=== PATIENT | female | born 1945 | race Caucasian/White ===

== ENCOUNTER → 2020-08-30 15:00 | Outpatient (BNVA) | payer MEDICARE, OTHER, SELFPAY | PROVIDERS: PCP Internal Medicine; Visit Provider Internal Medicine Cardiovascular Disease | DX: I10 Essential (primary) hypertension (principal); Z82.49 Family history of ischemic heart disease and other diseases of the circulatory system | CPT/HCPCS: 93005; 99212 ==

== ENCOUNTER → 2020-10-09 10:04 | Outpatient (REF) | payer MEDICARE, OTHER, SELFPAY ==
--- NOTE | 2020-10-09 10:07 | CA_ITS ---
Transthoracic Echocardiogram Patient (Last, First, Middle): Yovana Mayfield A Gender: Female Date of : 1945 Age: 75 Procedure Date: 10/09/2020 Procedure Type: Transthoracic Echocardiogram Location: OP Height: 162.56 cm Weight: 111.13 kg BSA: 2.13 m2 Heart Rate: bpm BP: 137 / 70 mmHg Coal Sampler: LUCAS Referring MD: Vasyl Sung MD Symptoms: R01.1 - Cardiac murmur, unspecified Study Quality: Technically Difficult ECG Rhythm: Sinus Conclusions: - The left ventricular systolic function is normal. The visually estimated ejection fraction is between 65-70%. - There is mild calcification of the aortic valve. - There is mild aortic valve stenosis. - There is mild dilatation of the aortic arch measuring 3.90 cm. Findings Left Ventricle Normal left ventricular cavity size. There is mildly increased left ventricular wall thickness. The left ventricular systolic function is normal. The visually estimated ejection fraction is between 65-70%. There is no evidence of regional wall motion abnormalities. Diastolic function is normal for age. Right Ventricle Normal right ventricular cavity size and systolic function. Atria Both atria are normal in size. Aortic Valve The aortic valve was not well visualized. There is a normal trileaflet aortic valve. There is mild calcification of the aortic valve. There is mild aortic valve stenosis. The peak aortic gradient is 20 mmHg.The mean gradient is 9 mmHg. The aortic valve area is 1.43 cm2. There is no aortic valve regurgitation. Mitral Valve The mitral valve appears normal. There is trace mitral valve regurgitation. There is no mitral valve stenosis. Pulmonic Valve The pulmonic valve was not well visualized. Tricuspid Valve Normal tricuspid valve structure. There is trace tricuspid valve regurgitation. The pulmonary artery systolic pressure is normal. Great Vessels The asc aorta is normal in size. There is mild dilatation of the aortic arch measuring 3.90 cm. Venous The inferior vena cava is normal in size and collapses greater than 50% with inspiration. Pericardium/Pleural There is no evidence of pericardial effusion. Prior Study Comparison Changes noted compared to prior study dated: 08/11/2018. See comments on aortic arch. Measurements M-Mode Liner Measurements Normals - Women/Men AOV Cusps: 1.70 1.5-2.6 cm/m2 2D Linear Measurements IVSd: 1.07 0.6-0.9/0.6-1.0 cm LVIDd: 4.72 3.9-5.3/4.2-5.9 cm LVIDd Index: 2.22 2.4-3.2/2.2-3.1 cm/m2 LVIDs: 3.59 2.0-3.6 cm LVPWd: 1.12 0.7-1.1 cm Ao Root: 2.60 2.1-3.5 cm LA Diam: 3.70 2.7-3.8/3.0-4.0 cm LAIDs Index: 1.74 1.5-2.3 cm/m2 LV Mass: 233.78 67-162/88-224 g LV Mass Index: 109.75 43-95/49-115 g/m2 LVOT Diam: 2.10 3.0+(-)1.3 cm 2D Systolic Function EF 4C: 66.50 >55% EF 2C: 62.90 >55% EF BiP: 65.70 >55% Mitral Valve MV Pk E: 0.89 MV PK A: 1.21 MV Decel Time: 257.00 E/A: 0.70 E'Lateral: 11.00 E'Medial: 7.07 E/E' Med: 12.60 E/E' Lat: 8.10 PHT: 75.00 MVA PHT: 2.93 Decel [place]: 3.47 Aortic Valve AoV Pk Cooper: 2.23 AoV Pk Grad: 20.00 Aov Mn Grad: 9.00 CARA Cont.VTI: 1.43 LVOT LVOT Pk Cooper: 0.92 LVOT Mn Cooper: 0.64 LVOT VTI: 0.21 LVOT Pk Grad: 3.00 LVOT Mn Grad: 2.00 LVOT Diam: 2.10 LVOT Area: 3.46 Diastolic Function MV Pk E: 0.89 MV Pk A: 1.21 E/A: 0.70 E'Medial: 7.07 E/E' Med: 12.60 E' Laterial: 11.00 E/E' Lat: 8.10 Tricuspid Valve RA Press: 3.00 Great Vessels Aorta Ao Root-2D: 2.60 2.0-3.7 cm Ao Asc: 2.90 2.1-3.4 cm Ao Arch: 3.90 Pulmonary Valve PV Pk Cooper: 1.68 Peak PV Grad: 11.00 Updated in Other Vendor System with Status of Final Perry Fisher MD electronically signed on 10/09/2020 11:39:41 AM with status of Final
== END ==
LOC: HO.CARD 10:04
PROVIDERS: PCP Internal Medicine; Visit Provider Internal Medicine Cardiovascular Disease
DX: R01.1 Cardiac murmur, unspecified (principal); R06.02 Shortness of breath; I10 Essential (primary) hypertension
CPT/HCPCS: 93306

== ENCOUNTER 2020-10-19 10:56 | Outpatient (REF) | payer MEDICARE, OTHER, SELFPAY ==
[2020-10-19 11:53] LABS: Cholesterol 204 mg/dL; HDL Cholesterol 63 mg/dL; LDL Cholesterol Calculated 120 mg/dl; Triglycerides 106 mg/dL
== END 2020-10-19 10:57 | disposition home or self-care (01) ==
LOC: HO.LAB 10:56
PROVIDERS: PCP Internal Medicine; Visit Provider Internal Medicine Cardiovascular Disease
DX: I25.10 Atherosclerotic heart disease of native coronary artery without angina pectoris (principal); I10 Essential (primary) hypertension
CPT/HCPCS: 36415; 80061

== ENCOUNTER → 2021-01-03 10:13 | Outpatient (REF) | payer MEDICARE, OTHER, SELFPAY ==
--- NOTE | ~2021-01-03 | NM_ITS ---
Lexiscan Myocardial perfusion study Indication: Shortness of breath, hypertension, assess for coronary disease and ischemia Technique: The patient was brought in for a Lexiscan perfusion study on 01/03/2021 and was injected 0.4 mg of Lexiscan intravenously. Within a minute of this injection 40 mCi of sestamibi was given intravenously. Images were obtained using the SPECT gamma camera interlaced with the gating device. Images were obtained in supine position. Resting perfusion study was performed on 01/04/2021. Patient was administered 40 mCi of sestamibi intravenously at rest. Images were then obtained in supine position. Total DLP 165mGy-cm. Images were processed with the software and compared side to side in short axis, horizontal long axis and vertical long axis views. Findings: Raw acquisition was reviewed. Left arm by the patient's side. The stress perfusion study showed diminished tracer uptake in the distal inferolateral wall. There is significant improvement with CT attenuation correction, suggestive of diaphragmatic attenuation artifact. The gated study shows normal LV systolic function with calculated LVEF of 57%. LV cavity is normal in size. The gated study shows normal wall thickening and contraction of segments. Resting study shows mildly diminished tracer uptake along the inferior wall but with good improvement with CT attenuation correction. Gating at rest reveals normal wall motion with ejection fraction at 58%. The findings are consistent with no definite reversible or fixed perfusion defects. NM/NM kalye perf SPECT rest & str Impression: 1. Myocardial perfusion imaging study shows likely normal myocardial perfusion. No definitive evidence of any ischemia or infarction. 2. Gated LVEF is 57% during stress and 58% during rest. 3. Transient ischemic dilatation not present. EKG component of the test reported separately.
--- NOTE | 2021-01-03 10:17 | CA_ITS ---
Acquisition Time: 2021-01-03 10:23:59 Total Exercise Time: 00:02:00 Test Indications: HTN Medications: SEE CHART Protocol: LEXISCAN Max HR: 087 BPM 59% of Pred: 147 BPM Max BP: 130/070 mmHG Max Work Load: 1.0 METS Pharmacological stress test with Lexsican injection, while sitting and kicking her legs, without anginal symptoms, without arrythmia, with normotensive response to injection, with nondiagnostic EKG for ischemia. Nuclear image pending. Test reveiwed with Dr Fisher. Referred By: Vasyl Sung Overread By: PO MONTILLA
== END ==
LOC: HO.CARD 10:13
PROVIDERS: Visit Provider Internal Medicine Cardiovascular Disease
DX: R06.02 Shortness of breath (principal); R01.1 Cardiac murmur, unspecified; I10 Essential (primary) hypertension
CPT/HCPCS: 78452; 93016; 93017; 93018; A9500; J0280; J2785

== ENCOUNTER 2021-05-06 20:22 | Emergency (ER) | payer MEDICARE, OTHER, SELFPAY ==
--- NOTE | ~2021-05-06 | XR_ITS ---
EXAMINATION: XR KNEE, RIGHT CLINICAL INFORMATION: Fall. COMPARISON: None TECHNIQUE: Four views of the right knee. FINDINGS: There is soft tissue swelling in the prepatellar soft tissues. No acute osseous abnormality. No fracture or dislocation. Status post right total knee replacement. Orthopedic components in position. No radiographic evidence of loosening. XR/XR knee RT 2V IMPRESSION: 1. Prepatellar soft tissue swelling. 2. Right total knee replacement. No acute osseous abnormality.
--- NOTE | ~2021-05-06 | XR_ITS ---
EXAMINATION: XR ELBOW, RIGHT CLINICAL INFORMATION: Fall. Pain. COMPARISON: None TECHNIQUE: Three views of the right elbow. FINDINGS: There is fluid in the elbow joint, hemarthrosis, displacing fat pads of the distal humerus. There is an impacted fracture of the radial neck. Subtle cortical step-off seen at the base of the radial neck. The distal humerus and the proximal ulna are intact. XR/XR elbow RT 2V IMPRESSION: Fracture of radial neck.
--- NOTE | ~2021-05-06 | CT_ITS ---
EXAMINATION: CT HEAD WITHOUT CONTRAST CLINICAL INFORMATION: Fall. COMPARISON: CT head July 19, 2009 TECHNIQUE: Contiguous axial imaging was performed from the skull base to vertex without intravenous administration of contrast. Coronal and sagittal reformatted images are performed at the CT scanner. [This CT examination was performed using dose optimization techniques as appropriate, variously including the following: *Automated exposure control *Adjustment of mA and/or kV according to patient size (this includes techniques or standardized protocols for targeted exams where dose is matched to indication/reason for exam; i.e. extremities or head) *Use of iterative reconstruction technique] DLP: 670 mGy-cm. FINDINGS: There is no evidence of acute intracranial hemorrhage or territorial infarction. No abnormal mass-effect or midline shift is seen. Martinez to white matter differentiation is well preserved. No extra-axial fluid collections are identified. The ventricles are normal in size. There is no abnormal attenuation within the brain parenchyma. There is no osseous abnormality. The mastoid air cells and visualized portions of the paranasal sinuses are well-aerated. CT/CT head/brain wo con IMPRESSION: No acute intracranial pathology.
[2021-05-06 20:26] VITALS: BP 155/103; PULSE 67; RESP 16; TEMP 36.8; O2SAT 98; BMI 41.1
--- NOTE | 2021-05-06 20:34 | PC.NURSE ---
pt a&o , no loss of loc, dressing to laceration right anabaptism, bleeding is control. pt able to communicate appropriately and completed full sentences.
[2021-05-06 21:08] VITALS: BP 179/96; PULSE 66; RESP 16; TEMP 36.8; O2SAT 100
--- NOTE | 2021-05-06 21:19 | PC.NURSE ---
patient arrives to ED with fall at home and hit head. Lac on right side of head. Patient states she has 3 plantar warts that are currently being treated and it is painful to walk and it caused her to become wobbly at home and fall. Patient hit head on propane tank. Fall witnessed by . Denies LOC. Denies use of blood thinners. Resting safely.
--- NOTE | 2021-05-06 21:36 | ED.FALL ---
HPI - Fall General Chief Complaint: Fall Stated Complaint: Fall/Head injury Time Seen by Provider: 05/06/21 21:36 Source: patient Mode of arrival: ambulatory Limitations: no limitations History of Present Illness HPI Narrative: Patient had a mechanical fall tripped in her backyard fell hitting her right temporal area to the propane tank came with small laceration no loss of consciousness also complaining of right knee pain and right elbow pain patient able to ambulate Related Data Home Medications Medication Instructions Recorded Confirmed Lactobacillus cap PO 08/30/20 08/30/20 acidophilus-Bifidobac.animalis 2 billion cell capsule (One-A-Day Trubiotics) allopurinol 100 mg tablet 100 mg PO DAILY 08/30/20 08/30/20 cetirizine 10 mg tablet 5 mg PO DAILY PRN 08/30/20 08/30/20 cholecalciferol (vitamin D3) 25 25 mcg PO DAILY 08/30/20 08/30/20 mcg (1,000 unit) capsule escitalopram oxalate 10 mg tablet 10 mg PO DAILY 08/30/20 08/30/20 hydrochlorothiazide 50 mg tablet 50 mg PO DAILY 08/30/20 08/30/20 levothyroxine 88 mcg tablet 88 mcg PO DAILY 08/30/20 08/30/20 omega-3 fatty acids 1,000 mg 1,000 mg PO DAILY 08/30/20 08/30/20 capsule potassium chloride 20 mEq 20 meq PO DAILY 08/30/20 08/30/20 tablet,extended release turmeric root extract 500 mg 1,000 mg PO DAILY 08/30/20 08/30/20 capsule Allergies Allergy/AdvReac Type Severity Reaction Status Date / Time No Known Allergies Allergy Unverified 04/26/20 14:34 [No Known Allergies*] Review of Systems Review of Systems: Yes all other systems are reviewed and are negative PMFSH Past Medical History Medical History HTN (hypertension) Surgical History Hx of carpal tunnel repair Family History Family History Father CVD (cardiovascular disease) Mother CVD (cardiovascular disease) Social History Social History Advance Directives: No Advance Directives Information Provided: No Physical Exam Vital Signs: Vital Signs: Last Vital Signs Temp 98.3 F 05/06/21 21:08 Pulse 66 05/06/21 21:08 Resp 16 05/06/21 21:08 BP 179/96 H 05/06/21 21:08 Pulse Ox 100 05/06/21 21:08 Body Mass Index 41.1 Appearance: Alert. Oriented X3. No acute distress. Eyes: PERRLA, HEENT: Pharynx normal. Oral Mucosa moist, superficial laceration on right temporal area Neck: Normal inspection. Neck supple. CVS: Normal heart rate and rhythm. Pulses normal. Respiratory: No respiratory distress. Equal air entry bilateral, Abdomen: Soft and nontender. Bowel sounds are present, no mass palpable, Skin: Skin warm and dry. Normal skin color. Normal skin turgor. Extremities: No lower extremity edema. No calf tenderness slight tenderness right radial head good range of movement. Right knee has slight swelling on the patellar bone good range of movement patient able to ambulate Neuro: Oriented X 3. No motor deficit. No sensory deficit.No cerebellar signs , cranial nerves II-XII intact HENMT: Head images: 1. 2 cm superficial laceration Extrem: Shoulder/upper arm images: 1. Tenderness at radial head, good range of movement, neurovascular intact Procedures Laceration Laceration 1: Site: scalp Side (If applicable): right Size (cm): 2 Description: linear Depth: simple, single layer Skin layer closed with: other (Dermabond) Orthopedic Splinting/Casting Injury #1: Side: right Upper Extremity Injury Location: elbow Upper Extremity Immobilizer: sling/shoulder immobilizer MDM - Fall MDM Narrative Medical decision making narrative: Patient right elbow-x-ray showed subtle fracture of right radial head with good range of movement. Right elbow immobilizer applied Lab Data Attestation: I reviewed the patient's lab results. Discharge Plan Discharge Clinical Impression: Fall Qualifiers: Encounter type: initial encounter Qualified Code(s): W19.XXXA - Unspecified fall, initial encounter Elbow fracture, right Qualifiers: Encounter type: initial encounter Fracture type: closed Qualified Code(s): S42.401A - Unspecified fracture of lower end of right humerus, initial encounter for closed fracture Patient Disposition: Home, Self-Care Instructions: Elbow Fracture (ED), Fall Prevention (ED) Additional Instructions: Wear elbow immobilizer for 48 hours Apply ice Do [id number] exercises as advised Tylenol for pain Follow-up with orthopedics if pain continues or unable to move your right elbow Prescriptions: No Action levothyroxine 88 mcg tablet 88 mcg PO DAILY RF: 0 hydrochlorothiazide 50 mg tablet 50 mg PO DAILY RF: 0 potassium chloride 20 mEq tablet extended release 20 meq PO DAILY RF: 0 escitalopram oxalate 10 mg tablet 10 mg PO DAILY RF: 0 allopurinol 100 mg tablet 100 mg PO DAILY RF: 0 cetirizine 10 mg tablet 5 mg PO DAILY PRNRF: 0 cholecalciferol (vitamin D3) 25 mcg (1,000 unit) capsule 25 mcg PO DAILY RF: 0 One-A-Day Trubiotics 2 billion cell capsule PO RF: 0 turmeric root extract 500 mg capsule 1,000 mg PO DAILY RF: 0 omega-3 fatty acids 1,000 mg capsule 1,000 mg PO DAILY RF: 0 Discharge Date/Time: 05/06/21 23:00
== END 2021-05-06 23:00 | disposition home or self-care (01) ==
PROVIDERS: Emergency Provider Internal Medicine; PCP Internal Medicine
DX: S01.01XA Laceration without foreign body of scalp, initial encounter (principal); S51.011A Laceration without foreign body of right elbow, initial encounter; G44.309 Post-traumatic headache, unspecified, not intractable; M79.601 Pain in right arm; W01.0XXA Fall on same level from slipping, tripping and stumbling without subsequent striking against object, initial encounter; Y93.9 Activity, unspecified; Y92.9 Unspecified place or not applicable; Y99.9 Unspecified external cause status; Z79.899 Other long term (current) drug therapy
CPT/HCPCS: 12001; 29105; 70450; 73070; 73560; 99283; 99284

== ENCOUNTER 2021-08-05 14:18 | Emergency (ER) | payer MEDICARE, OTHER, SELFPAY ==
[2021-08-05 14:26] VITALS: BP 173/90; PULSE 73; RESP 18; TEMP 36.8; BMI 42.9
[2021-08-05 17:22] LABS: MANUAL DIFF FLAG NO
[2021-08-05 17:23] LABS: Basophils Absolute Auto 0.1 X10*3/uL (0.0-0.2); Basophils Percent Auto 0.6 % (0-2); Eosinophils Absolute Auto 0.5 X10*3/uL (0.0-0.4); Eosinophils Percent Auto 5.8 % (0-4); Hemoglobin 13.2 g/dl (12.0-16.0); Imm Gran Abs Auto 0.03 X10*3/uL (0.00-0.03); Imm Gran Pct Auto 0.4 % (0.0-0.4); Lymphocytes Absolute Auto 1.9 X10*3/uL (1.2-4.9); Lymphocytes Percent Auto 23.2 % (20-40); Mean Corpuscular Volume 90.9 fL (80.0-98.0); Mean Platelet Volume 10.1 fL (9.4-12.3); Monocytes Absolute Auto 0.8 X10*3/uL (0.1-1.2); Monocytes Percent Auto 9.2 % (2-11); Neutrophils Percent Auto 60.8 % (45-73); Platelet Count 241 X10*3/uL (160-400); Red Cell Distribution Width 13.7 % (11.0-16.0); White Blood Count 8.1 X10*3/uL (4.8-10.8)
[2021-08-05 17:41] LABS: Anion Gap 13 (12-20); Blood Urea Nitrogen 17 mg/dL (9-16); Calcium 10.2 mg/dL (8.4-10.2); Carbon Dioxide 29 mmol/L (22-29); Chloride 106 mmol/L (96-108); Creatinine Clr Calc Pharmacy 61.5; Estimated Glomerular Filt Rate 55; Glucose Random 107 mg/dL (60-115); Potassium 4.5 mmol/L (3.3-5.1); Sodium 143 mmol/L (135-145)
[2021-08-05 22:54] VITALS: BP 193/91; PULSE 64; RESP 20; O2SAT 96
== END 2021-08-05 23:10 | disposition left against medical advice (07) ==
PROVIDERS: Emergency Provider Emergency Medicine; PCP Internal Medicine
DX: R51.9 Headache, unspecified (principal); M79.605 Pain in left leg; M79.604 Pain in right leg
CPT/HCPCS: 36415; 80048; 85025; 99283

== ENCOUNTER → 2022-09-01 13:13 | Outpatient (BNVA) | payer MEDICARE, OTHER, SELFPAY | PROVIDERS: PCP Internal Medicine; Referring Provider Internal Medicine; Visit Provider Internal Medicine Cardiovascular Disease | DX: I35.0 Nonrheumatic aortic (valve) stenosis (principal); I10 Essential (primary) hypertension | CPT/HCPCS: 93005; 99212 ==

== ENCOUNTER → 2022-09-08 08:37 | Outpatient (REF) | payer MEDICARE, OTHER, SELFPAY ==
--- NOTE | 2022-09-08 08:40 | CA_ITS ---
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 The calculated ejection fraction is 62% by biplane method. - There is mild aortic valve stenosis. - There is mild dilatation of the ascending aorta measuring 4.00 cm. - Small plaque is seen in the sinuses of Valsalva. Findings Left Ventricle Normal left ventricular cavity size. There is mildly increased left ventricular wall thickness. The left ventricular systolic function is normal. The calculated ejection fraction is 62% by biplane method. There is no evidence of regional wall motion abnormalities. Diastolic function is normal for age. LV peak GLS -22%. Right Ventricle Normal right ventricular cavity size and systolic function. Atria The left atrium is moderately dilated. The right atrium is normal in size. Aortic Valve There is a normal trileaflet aortic valve. There is mild calcification of the aortic valve. There is mild aortic valve stenosis. The peak aortic velocity is 2.35 m/s with a calculated peak gradient of 22 mmHg. The mean gradient is 13 mmHg. The aortic valve area is 1.40 cm2. There is no aortic valve regurgitation. Dimensionless index 0.44. Mitral Valve The mitral valve appears normal. There is trace mitral valve regurgitation. There is no mitral valve stenosis. Pulmonic Valve The pulmonic valve was not well visualized. Tricuspid Valve Normal tricuspid valve structure. There is mild tricuspid valve regurgitation. There is no evidence of pulmonary hypertension. Great Vessels There is mild dilatation of the ascending aorta measuring 4.00 cm. Small plaque is seen in the sinuses of Valsalva. Venous The inferior vena cava is normal in size and collapses greater than 50% with inspiration. Pericardium/Pleural There is no evidence of pericardial effusion. Prior Study Comparison No significant change compared to prior study dated: 10/09/2020. Measurements 2D Linear Measurements IVSd: 1.33 0.6-0.9/0.6-1.0 cm LVIDd: 4.11 3.9-5.3/4.2-5.9 cm LVIDd Index: 1.95 2.4-3.2/2.2-3.1 cm/m2 LVIDs: 2.91 2.0-3.6 cm LVPWd: 1.24 0.7-1.1 cm LA Diam: 4.30 2.7-3.8/3.0-4.0 cm LAIDs Index: 2.04 1.5-2.3 cm/m2 LV Mass: 237.80 67-162/88-224 g LV Mass Index: 112.70 43-95/49-115 g/m2 LVOT Diam: 2.10 3.0+(-)1.3 cm 2D Systolic Function EF 4C: 53.80 >55% EF 2C: 70.80 >55% EF BiP: 61.90 >55% Mitral Valve MV Pk E: 0.99 MV PK A: 1.17 MV Decel Time: 281.00 E/A: 0.80 E'Lateral: 10.30 E'Medial: 8.27 E/E' Med: 12.00 E/E' Lat: 9.60 PHT: 82.00 MVA PHT: 2.68 Decel [place]: 3.52 Aortic Valve AoV Pk Cooper: 2.35 AoV Mn Cooper: 1.73 AoV VTI: 0.64 AoV Pk Grad: 22.00 Aov Mn Grad: 13.00 CARA Cont.VTI: 1.40 LVOT LVOT Pk Cooper: 1.03 LVOT Mn Cooper: 0.67 LVOT VTI: 0.26 LVOT Pk Grad: 4.00 LVOT Mn Grad: 2.00 LVOT Diam: 2.10 LVOT Area: 3.46 Diastolic Function MV Pk E: 0.99 MV Pk A: 1.17 E/A: 0.80 E'Medial: 8.27 E/E' Med: 12.00 E' Laterial: 10.30 E/E' Lat: 9.60 Right Ventricle TAPSE (mm): 24.00 TVS' Cooper: 12.50 Tricuspid Valve TR Pk Cooper: 2.27 TR Pk Grad: 21.00 RA Press: 3.00 RVSP: 24.00 Great Vessels Aorta Sinus of Valsalva: 3.01 2.0-3.[address] [place]: 2.63 1.7-3.4 cm Ao Asc: 4.00 2.1-3.4 cm Updated in Other Vendor System with Status of Final Perry Fisher MD electronically signed on 09/08/2022 12:04:36 PM with status of Final
[2022-09-08 11:16] LABS: Cholesterol 182 mg/dL; HDL Cholesterol 57 mg/dL; LDL Cholesterol Calculated 105 mg/dl; Triglycerides 100 mg/dL
== END ==
LOC: HO.CARD 08:37
PROVIDERS: PCP Internal Medicine; Visit Provider Internal Medicine Cardiovascular Disease
DX: I35.0 Nonrheumatic aortic (valve) stenosis (principal); I25.10 Atherosclerotic heart disease of native coronary artery without angina pectoris
CPT/HCPCS: 36415; 80061; 93306; 93356

== ENCOUNTER 2023-03-30 13:13 | Outpatient (AMB) | payer MEDICARE, OTHER, SELFPAY ==
[2023-03-30 13:29] VITALS: BP 138/72; PULSE 60; O2SAT 96; BMI 42.8
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
== END 2023-03-30 13:55 | disposition home or self-care (01) ==
PROVIDERS: PCP Internal Medicine; Referring Provider Internal Medicine; Visit Provider Nurse Practitioner Family
DX: R06.02 Shortness of breath (principal); I35.0 Nonrheumatic aortic (valve) stenosis; R01.1 Cardiac murmur, unspecified; I10 Essential (primary) hypertension; I77.810 Thoracic aortic ectasia
CPT/HCPCS: 93010; 99214

== ENCOUNTER → 2023-03-30 13:13 | Outpatient (BNVA) | payer MEDICARE, OTHER, SELFPAY | PROVIDERS: PCP Internal Medicine; Referring Provider Internal Medicine; Visit Provider Nurse Practitioner Family | DX: R07.89 Other chest pain (principal); R06.02 Shortness of breath; I35.0 Nonrheumatic aortic (valve) stenosis; I10 Essential (primary) hypertension; R01.1 Cardiac murmur, unspecified; I77.810 Thoracic aortic ectasia | CPT/HCPCS: 93005; 99212 ==

== ENCOUNTER → 2023-08-18 13:47 | Outpatient (REF) | payer MEDICARE, OTHER, SELFPAY ==
--- NOTE | 2023-08-18 13:50 | CA_ITS ---
Transthoracic Echocardiogram Patient (Last, First, Middle): Yovana Mayfield A Gender: Female Date of : 1945 Age: 78 Procedure Date: 08/18/2023 Procedure Type: Transthoracic Echocardiogram Location: OP Height: 162.56 cm Weight: 113.4 kg BSA: 2.15 m2 Heart Rate: bpm BP: 146 / 80 mmHg Photonics Engineering Technician: TO Referring MD: Vasyl Sung MD Production Staff Worker: Vasyl Sung MD Symptoms: I35.0 - Nonrheumatic aortic (valve) stenosis Study Quality: Fair ECG Rhythm: Sinus Conclusions: - 1. Normal LV ejection fraction 65-70% with mild LVH with grade 1 diastolic dysfunction 2. Mild to moderate aortic stenosis 3. Normal RV systolic pressure 4. No pericardial effusion Findings Left Ventricle Normal left ventricular size and systolic function. There is mildly increased left ventricular wall thickness. The visually estimated ejection fraction is between 65-70%. Spectral Doppler is indicative of an impaired relaxation filling pattern. E/E prime ratio is <8, consistent with normal filling pressures. Evidence suggests grade I (mild) diastolic dysfunction. Right Ventricle Normal right ventricular cavity size and systolic function. Atria Mild biatrial enlargement. Interatrial shunt cannot be excluded. Aortic Valve There is mild calcification of the aortic valve. There is mild thickening of the aortic valve. There is mild to moderate aortic valve stenosis. The peak aortic gradient is 24 mmHg.The mean gradient is 13 mmHg. The aortic valve area is 1.49 cm2. There is no aortic valve regurgitation. Mitral Valve There is mild anterior mitral leaflet thickening. There is mild mitral annular calcification. There is trace mitral valve regurgitation. There is no mitral valve stenosis. Pulmonic Valve The pulmonic valve was not well visualized. Tricuspid Valve Likely normal tricuspid valve structure and function. There is mild tricuspid valve regurgitation. The right ventricular systolic pressure is normal. The right ventricular systolic pressure is 22 mmHg. Normal right atrial pressure. There is no evidence of pulmonary hypertension. Great Vessels The aorta was not well visualized. The pulmonary artery was not well visualized. There is no dilatation of the ascending aorta. Venous The inferior vena cava is normal in size and collapses greater than 50% with inspiration. Pericardium/Pleural There is no evidence of pericardial effusion. Prior Study Comparison No significant change compared to prior study dated: 09/08/2022. Measurements 2D Linear Measurements IVSd: 1.26 0.6-0.9/0.6-1.0 cm LVIDd: 4.61 3.9-5.3/4.2-5.9 cm LVIDd Index: 2.14 2.4-3.2/2.2-3.1 cm/m2 LVIDs: 3.28 2.0-3.6 cm LVPWd: 1.04 0.7-1.1 cm LA Diam: 5.00 2.7-3.8/3.0-4.0 cm LAIDs Index: 2.33 1.5-2.3 cm/m2 LV Mass: 241.25 67-162/88-224 g LV Mass Index: 112.21 43-95/49-115 g/m2 LVOT Diam: 2.10 3.0+(-)1.3 cm 2D Systolic Function EF 4C: 67.40 >55% EF 2C: 73.90 >55% EF BiP: 70.10 >55% Mitral Valve MV VTI: 0.51 MV Pk Cooper: 1.28 MV Mn Cooper: 0.70 MV Pk Grad: 7.00 MV Mn Grad: 2.00 MV Pk E: 1.05 MV PK A: 1.15 MV Decel Time: 254.00 E/A: 0.90 E'Lateral: 7.51 E'Medial: 7.07 E/E' Med: 14.90 E/E' Lat: 14.00 PHT: 74.00 MVA PHT: 2.97 MVA Continuity: 1.65 Decel Mchenry: 4.11 Aortic Valve AoV Pk Cooper: 2.45 AoV Mn Cooper: 1.70 AoV VTI: 0.56 AoV Pk Grad: 24.00 Aov Mn Grad: 13.00 CARA Cont.VTI: 1.49 LVOT LVOT Pk Cooper: 1.00 LVOT Mn Cooper: 0.65 LVOT VTI: 0.24 LVOT Pk Grad: 4.00 LVOT Mn Grad: 2.00 LVOT Diam: 2.10 LVOT Area: 3.46 Diastolic Function MV Pk E: 1.05 MV Pk A: 1.15 E/A: 0.90 E'Medial: 7.07 E/E' Med: 14.90 E' Laterial: 7.51 E/E' Lat: 14.00 Right Ventricle TAPSE (mm): 24.30 TVS' Cooper: 12.10 Tricuspid Valve TR Pk Cooper: 2.18 TR Pk Grad: 19.00 RA Press: 3.00 RVSP: 22.00 Great Vessels Aorta Sinus of Valsalva: 2.86 2.0-3.[address] [place]: 2.21 1.7-3.4 cm Ao Asc: 3.30 2.1-3.4 cm Updated in Other Vendor System with Status of Final Vasyl Sung MD electronically signed on 08/19/2023 3:18:14 PM with status of Final
== END ==
LOC: HO.CARD 13:47
PROVIDERS: PCP Family Medicine; Visit Provider Internal Medicine Cardiovascular Disease
DX: I35.0 Nonrheumatic aortic (valve) stenosis (principal)
CPT/HCPCS: 93306

== ENCOUNTER → 2023-08-18 13:50 | Outpatient (BNV) | payer MEDICARE, OTHER, SELFPAY | PROVIDERS: PCP Family Medicine; Visit Provider Internal Medicine Cardiovascular Disease | DX: I35.0 Nonrheumatic aortic (valve) stenosis (principal) | CPT/HCPCS: 93306 ==

== ENCOUNTER 2023-08-31 10:37 | Outpatient (AMB) | payer MEDICARE, OTHER, SELFPAY ==
[2023-08-31 10:51] VITALS: BP 130/60; PULSE 53; BMI 42.5
--- NOTE | 2023-08-31 10:51 | MHC.OFFVIS ---
Intake Vital Signs 08/31/23 10:51 Height 5 ft 4 in Weight 247 lb 12.793 oz BMI 42.5 BP 130/60 Blood Pressure Location Lt brachial Position Sitting Pulse 53 Intake Visit Reasons: 1 year fu Intake Note: 1 yr f/up/ pt its its feeling fine. 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 acidophilus/Bifid. animalis 2 billion cell (One-A-Day Trubiotics) caps PO levothyroxine 100 mcg PO DAILY losartan 50 mg PO BID potassium chloride ER 20 mEq PO DAILY HPI HPI Comments History of Present Illness Details Yovana comes for follow-up. She has been doing well from cardiac perspective. She denies any symptoms of palpitations says she is doing better from that perspective. Blood pressure is well controlled. Echocardiogram shows some progression aortic stenosis and currently is ruod-mo-jjlydhab aortic stenosis. She has currently not on any lipid modifying agents. Last LDL in the low 100s. She denies any exertional chest pain or shortness of breath. Denies any orthopnea, PND, leg edema, prolonged palpitations, lightheadedness, syncope. [facility] Medical History (Updated 08/31/23 @ 11:48 by Vasyl Sung MD) Anxiety Gout HTN (hypertension) Surgical History Hx of carpal tunnel repair Family History Father CVD (cardiovascular disease) Mother CVD (cardiovascular disease) Social History Alcohol intake: current Alcohol intake frequency: holidays/special occasions only Patient Tobacco Use Status: Never used Tobacco Review of Systems Const Reports chills, Reports fatigue, Reports fever(s), Reports frequent falls, Reports weakness, Reports weight gain and Reports weight loss ENT Reports dizziness Card Reports chest pain, Reports leg edema, Reports lightheadedness, Reports palpitations, Reports dyspnea and Reports dyspnea on exertion Resp Reports cough, Reports dyspnea and Reports dyspnea on exertion GI Reports hematochezia Musc Reports abnormal gait, Reports muscle weakness, Reports numbness, Reports radiating pain into limb and Reports tingling Neuro Reports abnormal gait, Reports dizziness, Reports frequent falls, Reports numbness, Reports tingling and Reports weakness Endo Reports fatigue and Reports palpitations Physical Exam Vital Signs: Last Vital Signs Pulse 53 08/31/23 10:51 BP 130/60 08/31/23 10:51 BMI result Body Mass Index 42.5 Const General: cooperative, healthy appearing, comfortable and no acute distress Orientation/consciousness: patient oriented x3 Neck Neck: Yes normal visual inspection Resp Effort & Inspection: normal respiratory effort Auscultation: clear to auscultation bilaterally, no crackles, no rales, no rhonchi and no wheezes Cardio Jugular venous distension: no JVD Rate: regular rate Rhythm: regular rhythm Heart sounds: S1 normal heart sound present, S2 normal heart sound present, Murmur heart sound present (Systolic) systolic mid, decrescendo and crescendo and no rubs Neuro General: patient oriented x3 Extrem General: Yes normal to inspection Psych Appearance: grossly normal Mental Status: mental status grossly normal Speech and movement: Normal speech and movement present Office Procedures EKG Details: EKG shows sinus bradycardia, poor R-wave progression most likely lead placement [id number], Complete Assessment & Plan Assessment & Plan (1) Aortic stenosis: Code(s): I35.0 - Nonrheumatic aortic (valve) stenosis Plan: Aortic stenosis which is dkpf-uc-huhdfkhv in severity at this point time. We discussed about natural progression of aortic stenosis. Treatment would be medical. Would prescribe low-dose aspirin therapy. Continue aggressive control blood pressure, see below. Also discussed about lipid modification which has shown to slow progression of aortic stenosis. Target goal LDL closer to 70 mg/dL. She is currently not interested in starting statin therapy but try alternatives. Follow-up lipid panel in 3 months time. Follow-up echocardiogram in 1 year's time. (2) Mild ascending aorta dilatation: Code(s): I77.810 - Thoracic aortic ectasia Plan: Mild ascending aortic aneurysm. Continue monitor by annual echocardiogram. No interventions required from surgical perspective unless the size is about 5 cm and she requires aortic valve replacement. Will discuss this as we go along. Continue aggressive control blood pressure. Advised to avoid sudden isometric exercise. (3) HTN (hypertension): Code(s): I10 - Essential (primary) hypertension Plan: Hypertension which is currently well optimized advised to monitor blood pressure at home maintain a log. Goal blood pressure less than 130/84. Low-salt diet was discussed. Continue current medical therapy. Will follow up in the clinic in 1 year's time, sooner p.r.n.. Thank you for allowing me to partake in her care Coding Level of Care Code Est Pt Level 4 (76887) Diagnoses Aortic stenosis I35.0 Mild ascending aorta dilatation I77.810 HTN (hypertension) I10 CPT Codes EKG - CPT: 48924-[id number], Complete ([id number])
== END 2023-08-31 11:22 | disposition home or self-care (01) ==
PROVIDERS: Visit Provider Internal Medicine Cardiovascular Disease
DX: I35.0 Nonrheumatic aortic (valve) stenosis (principal); I77.810 Thoracic aortic ectasia; I10 Essential (primary) hypertension
CPT/HCPCS: 93010; 99214

== ENCOUNTER → 2023-08-31 10:37 | Outpatient (BNVA) | payer MEDICARE, OTHER, SELFPAY | PROVIDERS: Visit Provider Internal Medicine Cardiovascular Disease | DX: I35.0 Nonrheumatic aortic (valve) stenosis (principal); I77.810 Thoracic aortic ectasia; I10 Essential (primary) hypertension | CPT/HCPCS: 93005; 99212 ==

== ENCOUNTER → 2024-08-12 12:47 | Outpatient (REF) | payer MEDICARE, OTHER, SELFPAY ==
--- NOTE | 2024-08-12 13:03 | CA_ITS ---
Transthoracic Echocardiogram Patient (Last, First, Middle): Yovana Mayfield A Gender: Female Date of : 1945 Age: 79 Procedure Date: 08/12/2024 Procedure Type: Transthoracic Echocardiogram Location: OP Height: 162.56 cm Weight: 113.4 kg BSA: 2.15 m2 Heart Rate: 68 bpm BP: 160 / 72 mmHg Portable Router Operator: SUSAN Referring MD: Vasyl Sung MD Radiologic Tech: Vasyl Sung MD Symptoms: I35.0 - Nonrheumatic aortic (valve) stenosis Study Quality: Adequate ECG Rhythm: Sinus Conclusions: - 1. Normal LV ejection fraction of 60 65% with impaired relaxation filling pattern 2. Mild aortic stenosis 3. Normal RV systolic pressure 4. Upper limits of normal ascending aortic size 5. No gross pericardial effusion Findings Left Ventricle Normal left ventricular size, thickness, and systolic function. The visually estimated ejection fraction is between 60-65%. Spectral Doppler is indicative of an impaired relaxation filling pattern. E/E prime ratio is between 8 and 15 consistent with indeterminate filling pressures. Right Ventricle Normal right ventricular cavity size and systolic function. Atria Both atria are normal in size. There is lipomatous hypertrophy of the interatrial septum. There is no evidence of interatrial shunt. Aortic Valve There is mild calcification of the aortic valve. There is mild thickening of the aortic valve. There is mild aortic valve stenosis. There is no aortic valve regurgitation. Mitral Valve There is mild anterior and posterior mitral leaflet thickening. There is mild mitral annular calcification. There is trace mitral valve regurgitation. There is no mitral valve stenosis. Pulmonic Valve The pulmonic valve was not well visualized. Tricuspid Valve Likely normal tricuspid valve structure and function. There is mild tricuspid valve regurgitation. The right ventricular systolic pressure is normal. The right ventricular systolic pressure is 23 mmHg. Normal right atrial pressure. There is no evidence of pulmonary hypertension. Great Vessels The aorta was not well visualized. The pulmonary artery was not well visualized. Venous The inferior vena cava is normal in size and collapses greater than 50% with inspiration. Pericardium/Pleural There is no evidence of pericardial effusion. Prior Study Comparison Changes noted compared to prior study dated: 08/18/2023. aortic stenosis appears to be mild Measurements 2D Linear Measurements IVSd: 0.74 0.6-0.9/0.6-1.0 cm LVIDd: 5.03 3.9-5.3/4.2-5.9 cm LVIDd Index: 2.34 2.4-3.2/2.2-3.1 cm/m2 LVIDs: 3.43 2.0-3.6 cm LVPWd: 0.97 0.7-1.1 cm LA Diam: 4.40 2.7-3.8/3.0-4.0 cm LAIDs Index: 2.05 1.5-2.3 cm/m2 LV Mass: 186.08 67-162/88-224 g LV Mass Index: 86.55 43-95/49-115 g/m2 LVOT Diam: 2.10 3.0+(-)1.3 cm 2D Systolic Function EF 4C: 65.90 >55% EF 2C: 61.70 >55% EF BiP: 64.20 >55% Mitral Valve MV Pk E: 1.01 MV PK A: 1.13 MV Decel Time: 236.00 E/A: 0.90 E'Lateral: 7.62 E'Medial: 9.46 E/E' Med: 10.70 E/E' Lat: 13.30 PHT: 69.00 MVA PHT: 3.19 Decel [place]: 4.29 Aortic Valve AoV Pk Cooper: 2.33 AoV Mn Cooper: 1.55 AoV VTI: 0.51 AoV Pk Grad: 22.00 Aov Mn Grad: 11.00 CARA Cont.VTI: 1.79 LVOT LVOT Pk Cooper: 1.21 LVOT Mn Cooper: 0.83 LVOT VTI: 0.26 LVOT Pk Grad: 6.00 LVOT Mn Grad: 3.00 LVOT Diam: 2.10 LVOT Area: 3.46 Diastolic Function MV Pk E: 1.01 MV Pk A: 1.13 E/A: 0.90 E'Medial: 9.46 E/E' Med: 10.70 E' Laterial: 7.62 E/E' Lat: 13.30 Right Ventricle TAPSE (mm): 26.50 TVS' Cooper: 18.20 Tricuspid Valve TR Pk Cooper: 2.21 TR Pk Grad: 20.00 RA Press: 3.00 RVSP: 23.00 Great Vessels Aorta Sinus of Valsalva: 2.40 2.0-3.5 cm Ao Asc: 3.60 2.1-3.4 cm Updated in Other Vendor System with Status of Final Vasyl Sung MD electronically signed on 08/13/2024 2:13:23 PM with status of Final
--- OUTSIDE RECORDS SUMMARY | 2024-08-12 14:18 | XMS_ITS | Continuity of Care Document ---
Author Organization [facility] Address [address] [address] Assessment Encounter Date Assessment Date Assessment LastModified by Organization Details LastModified Time 06/07/2024 06/07/2024 Patient here to discuss amplification as a first time user. She has [employer] which provides $1700 per ear.. She understands that we do NOT direct bill any insurances; she would be responsible to pay us, then at the end of her trial, she would submit to her insurance. Also understands the $200 trial fee if hearing aids are returned. We discussed her concerns and difficulties with her hearing. She often skips get togethers with friends due to difficulty hearing in restaurants. She will NOT use a Paulo or similar device. I priced PhonaK I Sphere R's 90 and 70 s. She likes color P1 and would need Speaker !'s She will call me. She would like to discuss with her . Covered all of our policies with her. Elsa Gaytan MA [facility] william Not available 06/07/2024 12:19:52 Plan of Treatment Reminders Order Date Submit Date Provider Last Modified By Organization Details Last Modified Time Details Appointments None record ed. Lab None record ed. Referral None record ed. Procedures None record ed. Surgeries None record ed. Imaging None record ed. Medication Orders None record ed. Patient TargetsNo targets recorded. Patient InstructionsNo instructions recorded. Reason for Referral None Reported. Results Created Date Observation Date Name Description Value Unit Range Abnormal Flag Note LastModifiedBy Organization Detail LastModifiedTime 08/08/20 24 audio gram No observ ation record ed. BARCODE Not Available 2023 10:00:30 Result Notes None recorded. Problems Name Problem SNOMED Code Status Onset Date Resolution Date Notes Provider Name and Address Organization Details Recorded Time [place] ce of salivary secretion 09356923 Active 2021 Xerostomi a; Note: Date Diagnosed : 2 11:08 AM (K11.7) Not Available [facility] 4 02:49:28 Paresthes ia 22133009 Active 2021 Paresthes ia of skin; Note: Date Diagnosed : 2 11:08 AM (R20.2) Not Available [facility] 4 02:49:29 Sensorine ural hearing loss of bilateral ears 915326078 Active 2023 ADRIANA CHURCHILL MD [address] [place] [address],[place] [address], Teri nelson, [place], [id number] , [facility] - [facility] 4 09:20:36 Bilateral tinnitus 31516443627 02 Active 2023 ADRIANA CHURCHILL MD [address] [place] [address],[place] [address], [place], [place], [phone] , [facility] 4 09:21:05 Problem Notes None recorded. Medical Equipment None Reported. Medications Name Sig Start Date Stop Date Status Note LastModified by Organization Details LastModified Time losartan 50 mg tablet active Medicatio n ID: [id number] Br and Name: losartan Send Method: E-Prescri bed Subs Allowed: subs OK Medica tionGener icName: losartan Not Available Not Available Not Available cyclobenza shawn 10 mg tablet TAKE 1 TABLET NEEDED BY ORAL ROUTE FOR 14 DAYS. active Not Available Not Available No t Available benzonatat e 200 mg capsule active Medicatio n ID: [id number] Br and Name: benzonata te Send Method: E-Prescri bed Subs Allowed: subs OK Medica tionGener icName: benzonata te Not Available Not Available Not Available ondansetro n HCl 4 mg tablet active Medicatio n ID: [id number] Br and Name: ondansetr on HCl Send Method: E-Prescri bed Subs Allowed: subs OK Medica tionGener icName: ondansetr on HCl Not Available Not Available Not Available amlodipine 5 mg tablet TAKE 1 TABLET BY MOUTH EVERY DAY active Not Available Not Available No t Available allopurino l 100 mg tablet TAKE 1/2 TABLET BY MOUTH DAILY active Not Available Not Available No t Available prednisone 10 mg tablets in a dose pack active Medicatio n ID: [id number] Br and Name: prednison e Send Method: E-Prescri bed Subs Allowed: subs OK Medica tionGener icName: prednison e Not Available Not Available Not Available levothyrox ine 100 mcg tablet TAKE 1 TABLET BY MOUTH EVERY DAY active Not Available Not Available No t Available levothyrox ine 88 mcg tablet active Medicatio n ID: [id number] Br and Name: levothyro xine Send Method: E-Prescri bed Subs Allowed: subs OK Medica tionGener icName: levothyro xine Not Available Not Available Not Available gentamicin 0.3 % eye drops INSTILL 1 DROP INTO AFFECTED EYE(S) EVERY 4 HOURS FOR 7 DAYS active Not Available Not Available No t Available meclizine 25 mg tablet active Medicatio n ID: [id number] Br and Name: meclizine Send Method: E-Prescri bed Subs Allowed: subs OK Medica tionGener icName: meclizine Not Available Not Available Not Available tacrolimus 0.1 % topical ointment active Medicatio n ID: [id number] Br and Name: tacrolimu s Send Method: E-Prescri bed Subs Allowed: subs OK Medica tionGener icName: tacrolimu s Not Available Not Available Not Available furosemide 20 mg tablet TAKE 1 TABLET BY MOUTH EVERY DAY active Not Available Not Available No t Available gabapentin 100 mg capsule TAKE 2 CAPSULES BY MOUTH AT BEDTIME. active Not Available Not Available No t Available hydroxychl oroquine 200 mg tablet active Medicatio n ID: [id number] Br and Name: hydroxych loroquine Send Method: E-Prescri bed Subs Allowed: subs OK Medica tionGener icName: hydroxych loroquine Not Available Not Available Not Available albuterol sulfate HFA 90 mcg/actuat ion aerosol inhaler active Medicatio n ID: [id number] Br and Name: albuterol sulfate S end Method: E-Prescri bed Subs Allowed: subs OK Medica tionGener icName: albuterol sulfate Not Available Not Available Not Available hydroxyzin e HCl 10 mg tablet PLEASE SEE ATTACHED FOR DETAILED DIRECTION S active Not Available Not Available No t Available bromphenir amine-pseu doephedrin e-DM 2 mg-30 mg-10 mg/5 mL oral syrup active Medicatio n ID: [id number] Br and Name: brompheni ramine-ps eudoeph-D M Send Method: E-Prescri bed Subs Allowed: subs OK Medica tionGener icName: brompheni ramine-ps eudoeph-D M Not Available Not Available Not Available cefdinir 300 mg capsule TAKE 1 CAPSULE BY MOUTH EVERY 12 HOURS FOR 7 DAYS active Not Available Not Available No t Available losartan 100 mg tablet TAKE 1 TABLET BY MOUTH EVERYDAY AT BEDTIME active Not Available Not Available No t Available amoxicilli n 875 mg-potassi um clavulanat e 125 mg tablet active Medicatio n ID: [id number] Br and Name: amoxicill in-pot clavulana te Send Method: E-Prescri bed Subs Allowed: subs OK Medica tionGener icName: amoxicill in-pot clavulana te Not Available Not Available Not Available oxycodone 5 mg tablet TAKE 1 TABLET BY MOUTH EVERY 6 HOURS NEEDED FOR PAIN. active Not Available Not Available No t Available Laxative (bisacodyl ) 5 mg tablet,del ayed release PLEASE SEE ATTACHED FOR DETAILED DIRECTION S active Not Available Not Available No t Available escitalopr am 10 mg tablet TAKE 1 TABLET BY MOUTH EVERY DAY active Not Available Not Available No t Available GaviLyte-G 236 gram-22.74 gram-6.74 gram-5.86 gram oral solution PLEASE SEE ATTACHED FOR DETAILED DIRECTION S active Not Available Not Available No t Available Creon 36,000 unit-114,0 00 unit-180,0 00 unit capsule,de layed release TAKE 2 CAPS BY MOUTH THREE TIMES A DAY WITH MEALS AND 1 CAP ONE TO TWO TIMES A DAY WITH SNACKS active Not Available Not Available No t Available potassium chloride ER 20 mEq tablet,ext ended release TAKE 1 TABLET BY MOUTH EVERY DAY active Not Available Not Available No t Available Sodium Fluoride 5000 Dry Mouth 1.1 % dental paste active Medicatio n ID: [id number] Br and Name: Sodium Fluoride 5000 Dry Mouth Sen d Method: E-Prescri bed Subs Allowed: subs OK Specia l Instructi on: BRUSH ONCE DAILY FOR 2 MINUTES, PREFERABL Y AT BEDTIME - DO NOT EAT, DRINK OR RINSE FOR 30 MINUTES M edication GenericNa me: Sodium Fluoride 5000 Dry Mouth Not Available Not Available Not Available Vitals None Recorded Social History None recorded. Functional Status None recorded. Mental Status None recorded. Family History Nothing Reported. Medical History Condition Response Thyroid Problems Y Hypertension Y Anxiety Y Gynecological HistoryNo gynecological history recorded. Obstetrics History GPAL:G 0 P 0 0 0 0 Past Encounters Encounter ID Performer Location Encounter Start Date Encounter Closed Date Diagnosis/Indication Diagnosis SNOMED-CT Code Diagnosis ICD10 Code [id number] ELSA GAYTAN MA, CCC-A [place] [address] [address] 06/07/2024 10:50:23 06/07/2024 14:01:00 Bilateral tinnitus 3438986921 102 H93.13 Sensorineu ral hearing loss of bilateral ears 111137188 H90.3 Health Concerns Section Related Observation LastModified by Organization Detai ls LastModified Time None Recorded Concern Status LastModified by Organization Details LastModified Time None Recorded Payers Encounter Date Sequence Insurance Name Policy Number Policy Cr Covered Member ID Cr Member ID Guarantor Name 06/07/2024 2 [facility] (MEDICARE SUPPLEMENT) [id number] Yovana Carye [id number] Yovana Mayfield 06/07/2024 1 MEDICARE B-[place]: [employer] Yovana Carye [id number] Yovana Mayfield OBGyn Episode No OBEpisode recorded.
--- OUTSIDE RECORDS SUMMARY | 2024-08-12 14:18 | XMS_ITS | Patient Health Record ---
Author Organization [facility] Address [address] [facility] [place] [address] Care Team Providers Care Thermoplastic Technician Name Role Phone Ellie John Primary Care Provider Jose A Wang Unavailable [phone] Allergies Allergen (clinical drug ingredient) Drug/Non Drug Allergy documented on EMR Reaction Allergy Type Onset Date Status codeine Codeine nausea Drug Allergy Active Reason For Referral No Information Medications Medication SIG (Take, Route, Frequency, Duration) Notes Start Date End Date Status Levothyroxine Sodium 88 MCG 1 tablet on an empty stomach in the morning Orally Once a day Active Losartan Potassium 50 MG 1 tablet Orally Once a day for 30 day(s) Active Loratadine 10 MG 1 tablet Orally Once a day for 30 day(s) Active Multivitamin complete Active Escitalopram Oxalate 10 MG 1 tablet Orally Once a day for 30 day(s) Active Furosemide 20 MG 1 tablet Orally Once a day for 30 day(s) Active Curcumin 95 tumeric supplement 1000 mg Active hydroCHLOROthiazide 25 MG 1 tablet Orall y Once a day Unknown Allopurinol 10 mg Active Vitamin D3 25 MCG (1000 UT) 1 capsule Orally Once a day for 30 day(s) Active [place] 3 1000 MG 1 capsule Orally Once a day for 30 day(s) Active TruBiotics Active Potassium Chloride 20 MEQ 1 packet with food Orally Once a day for 30 day(s) Active Immunizations Vaccine Route Administration Date Status Comme nts COVID-19 Moderna Vaccine Unknown 11/05/2020 Administere d 1st 10/08/2020 Social History Tobacco Use: Social History Observation Description Date Details (start date - stop date) Former Smoker NA - 04/05/2011 Tobacco Use/Smoking Question Answer Notes Are you a: former smoker When did you stop smoking? 04/05/2011 Additional Findings: Tobacco Non-User Ex-cigaret te smoker Alcohol Screen Question Answer Notes Did you have a drink containing alcohol in the p ast year? No Points 0 Interpretation Negative Tobacco use other than smoking: Question Answer Notes Are you an other tobacco user? No Problems Problem Type SNOMED Code ICD Code Onset Dates Problem Status W/U Status Risk Notes Problem Acquired hammer toe of right foot (7123544389976 105) Other hammer toe(s) (acquired), right foot (M20.41) Active confirmed Problem Acquired hammer toe of left foot (5432000342942 103) Other hammer toe(s) (acquired), left foot (M20.42) Active confirmed Plan Of Treatment Pending Test Test Name Order Date X ray : Foot, left 3V 10/07/2013 X ray : Foot, right 3V 10/07/2013 Insurance Providers Payer Name Payer Address Payer Phone Subscriber Number Group Number Insured Name Patient Relationship to Insured Coverage Start Date Coverage End Date Medicare National [employer]t [employer] [address] [facility] [address] [id number] Yovana Mayfield Self - patient is the insured 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
--- OUTSIDE RECORDS SUMMARY | 2024-08-12 14:18 | XMS_ITS | Data Portability ---
Author Organization [place] - [facility], Allergy Address [address] [address] Assessment Encounter Date Assessment Date Assessment LastModified by Organization Details LastModified Time 04/01/2024 04/01/2024 Asymmetric HL..Hx of numbness after COVID vaccine 2 years ago fadi Not available 04/01/2024 09:21:45 06/07/2024 06/07/2024 Patient here to discuss amplification as a first time user. She has [employer] which provides $1700 per ear.. She understands [...] our policies with her. Elsa Gaytan MA [facility]-A william Not available 06/07/2024 12:19:52 Plan of Treatment Reminders Order Date Submit Date Provider Last Modified By Organization Details Last Modified Time Details Appointments None recorded. Lab None recorded. Referral None recorded. Procedures None recorded. Surgeries None recorded. Imaging MRI, brain + internal auditory canal, w/wo contrast - MRI, BRAIN + INTERNAL AUDITORY CANAL, W/WO CONTRAST 2023 024 [facility] [address] [facility], [place], [address], 4 12:49:53 Medication Orders None recorded. Patient TargetsNo targets recorded. Patient InstructionsNo instructions recorded. Reason for Referral None Reported. Results Created Date Observation Date Name Description Value Unit Range Abnormal Flag Note LastModifiedBy Organization Detail LastModifiedTime 03/02/20 24 02/29/2024 audio gram No observ ation record ed. [email or web address] Not Available 09:04:14 03/28/20 24 02/29/2024 audio gram No observ ation record ed. [email or web address] Not Available 13:47:37 04/26/2004/25/2024 MRI, brain + inter nal audit ory canal , w/wo contr ast No observ ation record ed. [facility] [address] [place], [address], 04/27/2024 12:51:48 08/08/20 audio gram No observ ation record ed. BARCODE Not Available 2023 10:00:30 Result Notes None recorded. Problems Name Problem SNOMED Code Status Onset Date Resolution Date Notes Provider Name and Address Organization Details Recorded Time Disturban ce of salivary secretion 61200099 Active 2021 Xerostomi a; Note: Date Diagnosed : 2 11:08 AM (K11.7) Not Available [facility] 4 02:49:28 Paresthes ia 94366589 Active 2021 Paresthes ia of skin; Note: Date Diagnosed : 2 11:08 AM (R20.2) Not Available [facility] 4 02:49:29 Sensorine ural hearing loss of bilateral ears 774614315 Active 2023 ADRIANA CHURCHILL MD [address] [place] [address], [place], [address] , [facility] - [facility] 4 09:20:36 Bilateral tinnitus 04061173564 02 Active 2023 ADRIANA CHURCHILL MD [address] [address], [place], [address] , [place] [facility] 09:21:05 Problem Notes None recorded. Procedures Surgical History None recorded. Imaging Results Imaging Date Name Status LastModified by Organiz ation Details LastModified Time 02/29/2024 audiogram completed Information not available 03/02/2024 09:04:14 02/29/2024 audiogram completed Information not available 03/28/2024 13:47:37 04/25/2024 MRI, brain + internal auditory canal, w/wo contrast completed [facility] [address] [facility], [place], [address], 04/27/2024 12:51:48 08/08/2024 audiogram completed BARCODE Information no t available 08/08/2024 10:00:30 Procedure Notes None recorded. Medical Equipment None Reported. Medications Name Sig Start Date Stop Date Status Note LastModified by Organization Details LastModified Time losartan 50 mg tablet active Medicatio n ID: [id number] Br and Name: losartan Send Method: E-Prescri bed Subs Allowed: subs OK Medica tionGener icName: losartan Not Available Not Available Not Available cyclobenza shawn 10 mg tablet TAKE 1 TABLET NEEDED BY ORAL ROUTE FOR 14 DAYS. active Not Available Not Available No t Available benzonatat e 200 mg capsule active Medicatio n ID: [id number] Br and Name: benzonata te Send Method: E-Prescri bed Subs Allowed: subs OK Medica tionGener icName: benzonata te Not Available Not Available Not Available ondansetro n HCl 4 mg tablet active Medicatio n ID: [id number] Br and Name: ondansetr on HCl Send [...] a dose pack active Medicatio n ID: [id number] Br and Name: prednison e Send Method: E-Prescri bed Subs Allowed: subs OK Medica tionGener icName: prednison e Not Available Not Available Not Available levothyrox ine 100 mcg tablet TAKE 1 TABLET BY MOUTH EVERY DAY active Not Available Not Available No t Available levothyrox ine 88 mcg tablet active Medicatio n ID: [id number] Br and Name: levothyro xine Send Method: E-Prescri bed Subs Allowed: subs OK Medica tionGener icName: levothyro xine Not Available Not Available Not Available gentamicin 0.3 % eye drops INSTILL 1 DROP INTO AFFECTED EYE(S) EVERY 4 HOURS FOR 7 DAYS active Not Available Not Available No t Available meclizine 25 mg tablet active Medicatio n ID: [id number] Br and Name: meclizine Send Method: E-Prescri bed Subs Allowed: subs OK Medica tionGener icName: meclizine Not Available Not Available Not Available tacrolimus 0.1 % topical ointment active Medicatio n ID: [id number] Br and Name: tacrolimu s Send Method: [...] 200 mg tablet active Medicatio n ID: [id number] Br and Name: hydroxych loroquine Send Method: E-Prescri bed Subs Allowed: subs OK Medica tionGener icName: hydroxych loroquine Not Available Not Available Not Available albuterol sulfate HFA 90 mcg/actuat ion aerosol inhaler active Medicatio n ID: [id number] Br and Name: albuterol sulfate S end Method: E-Prescri bed Subs Allowed: subs OK Medica tionGener icName: albuterol sulfate Not Available Not Available Not Available hydroxyzin e HCl 10 mg tablet PLEASE SEE ATTACHED FOR DETAILED DIRECTION S active Not Available Not Available No t Available bromphenir amine-pseu doephedrin e-DM 2 mg-30 mg-10 mg/5 mL oral syrup active Medicatio n ID: [id number] Br and Name: brompheni ramine-ps eudoeph-D M [...] 125 mg tablet active Medicatio n ID: [id number] Br and Name: amoxicill in-pot clavulana te [...] % dental paste active Medicatio n ID: [id number] Br and Name: Sodium Fluoride 5000 Dry Mouth Sen d Method: E-Prescri bed Subs Allowed: subs OK Specia l Instructi on: BRUSH ONCE DAILY FOR 2 MINUTES, PREFERABL Y AT BEDTIME - DO NOT EAT, DRINK OR RINSE FOR 30 MINUTES M edication GenericNa me: Sodium Fluoride 5000 Dry Mouth Not Available Not Available Not Available Vitals Date Recorded Body height Body mass index (BMI) Body weight Provider Name and Address Organization Details Last Updated DateTime 04/01/2024 162.56 cm 42.1 kg/m2 713000.13 g Flaquito Mccain [place] - [facility] 04/01/2024 08:59:24 Social History None recorded. Functional Status None recorded. Mental Status None recorded. Family History Nothing Reported. Medical History Condition Response Anxiety Y Thyroid Problems Y Hypertension Y Gynecological HistoryNo gynecological history recorded. Obstetrics History GPAL:G 0 P 0 0 0 0 Past Encounters Encounter ID Performer Location Encounter Start Date Encounter Closed Date Diagnosis/Indication Diagnosis SNOMED-CT Code Diagnosis ICD10 Code [id number] ADRIANA CHURCHILL MD [facility] [address] [place] [address] 04/01/2024 08:48:05 04/01/2024 09:24:46 Sensorineural hearing loss of bilateral ears 878254427 H90.3 Bilateral tinnitus 01265 58862 102 H93.13 [id number] ELSA GAYTAN [place], CCC-A [facility] [place] [address] [place] [address] [address] 06/07/2024 10:50:23 06/07/2024 14:01:00 Bilateral tinnitus 3819121467 102 H93.13 Sensorineu ral hearing loss of bilateral ears 539970669 H90.3 Health Concerns Section Related Observation LastModified by Organization Detai ls LastModified Time None Recorded Concern Status LastModified by Organization Details LastModified Time None Recorded Advance Directives Directive None Recorded Payers Encounter Date Sequence Insurance Name Policy Number Policy Cr Covered Member ID Cr Member ID Guarantor Name 04/01/2024 2 [employer] - SENIOR SERVICES PLAN F (MEDICARE SUPPLEMENT) [id number] Yovana A Mayfield [id number] Yovana A Mayfield 04/01/2024 1 [place] Yovana A Mayfield [id number] Yovana A Mayfield 06/07/2024 2 [employer] - SENIOR SERVICES PLAN F (MEDICARE SUPPLEMENT) [id number] Yovana A Mayfield [id number] Yovana A Mayfield 06/07/2024 1 [place] Yovana A Mayfield [id number] Yovana A Mayfield Notes Date Note Type Note Provider Name and Address Organization Details Recorded Time 04/01/2024 text/html Patient with bilateral tinnitus underwent electric showing mild asymmetry of hearing left compared to right at 2000 Hz ADRIANA ISSA MD [address] [place] [address], [phone], [facility] - [facility] 04/01/2024 09:22:33 OBGyn Episode No OBEpisode recorded.
--- OUTSIDE RECORDS SUMMARY | 2024-08-12 14:18 | XMS_ITS ---
Author Organization [facility] Medicine Address [address] [place], [place] [id number] Care Team Providers Care Hog Ribber Name Role Phone Unavailable Primary Care Physician Unavailab le Allergies and Adverse Reactions Name Reaction Notes No Known Environmental Allergies No Known Food Allergies Codeine ?? Plan of Treatment Planned Activity Comments Planned Date Planned Time Plan /Goal Rapid strep screen 09/18/2016 12:00 AM Medications Active Name Start Date Estimated Comple tion Date SIG Comments levothyroxine 100 mcg capsule take 1 capsule (100 mcg) by oral route once daily escitalopram 10 mg tablet ta ke 1 tablet (10 mg) by oral route once daily allopurinol 100 mg tablet ta ke 1 tablet (100 mg) by oral route once daily [place] 3-6-9 1,200 mg capsule take 1 capsule by oral route daily Vitamin D3 25 mcg (1,000 unit) capsule take 1 capsule by oral route daily TruBiotics 2 billion cell capsule take 1 capsule by oral route daily turmeric 400 mg capsule take 2 capsules by oral route daily for 30 days multivitamin tablet take 1 t ablet by oral route daily furosemide 20 mg tablet take 1 tablet (20 mg) by oral route once daily losartan 50 mg tablet take 1 .5 tablets by oral route daily amlodipine 5 mg tablet take 1 tablet (5 mg) by oral route once daily hydroxychloroquine 200 mg tablet take 1 tablet (200 mg) by oral route 2 times per day potassium chloride ER 20 mEq tablet,extended release gabapentin 100 mg capsule Creon 36,000 unit-114,000 unit-180,000 unit capsule,delayed release Name Start Date Expiration Date SIG Comments levothyroxine oral tablet 88 mcg take 1 tablet (88 mcg) by oral route once daily hydrochlorothiazide oral tablet 25 mg take 1 tablet (25 mg) by oral route once daily Klor-Con oral packet 20 mEq azithromycin oral tablet 250 mg 12/26/2014 12/31/2014 take 2 tablets (500 mg) by oral route once daily for 1 day then 1 tablet (250 mg) by oral route once daily for 4 days diclofenac potassium 50 mg oral tablet take 1 tablet (50 mg) by oral route 2 times per day loratadine 10 mg oral tablet take 1 tablet (10 mg) by oral route once daily Augmentin 875-125 mg oral tablet 09/18/2016 09/28/2016 take 1 tablet by oral route every 12 hours for 10 days prednisone 10 mg oral tablet 09/18/2016 10/02/2016 Take 4 x 2 3 x 3 2 x 4 1 x 5 days Hydromet 5-1.5 mg/5 mL oral syrup 09/18/2016 09/25/2016 take 5 milliliters by oral route every 4-6 hours as needed for 7 days Lexapro oral Diflucan 150 mg oral tablet 02/18/2018 02/19/2018 take 1 tablet by oral route 1X, may repeat in 3 days. amoxicillin 875 mg oral tablet 02/18/2018 02/28/2018 take 1 tablet (875 mg) by oral route every 12 hours for 10 days prednisone 10 mg oral tablet 02/18/2018 02/28/2018 Take 4 tabs po day 1 and 2, 3 tabs po day 3 and 4, 2 tabs po day 5 and 6, 1 tab po day 7 and 8, 1/2 tab po day 9 and 10. Medrol ([place]) 4 mg oral tablets,dose pack 04/28/2018 05/04/2018 take as directed for 6 days cefdinir 300 mg oral capsule 04/28/2018 05/08/2018 take 1 capsule (300 mg) by oral route every 12 hours for 10 days cephalexin 500 mg oral tablet 10/23/2020 10/30/2020 take 1 tablet (500 mg) by oral route every 12 hours for 7 days ProAir HFA 90 mcg/actuation aerosol inhaler 01/17/2022 inhale 2 puffs (180 mcg) by inhalation route every 4-6 hours as needed benzonatate 200 mg capsule 01/17/2022 t hair 1 capsule (200 mg) by oral route 3 times per day as needed for cough prednisone 10 mg tablets in a dose pack 01/22/2022 take as directed brompheniramine-pseudoephedr i ne-DM 2 mg-30 mg-10 mg/5 mL oral syrup 01/22/2022 01/27/2022 take 10 milliliters by oral route every 4 hours for 5 days amoxicillin 875 mg-potassium clavulanate 125 mg tablet 01/22/2022 02/01/2022 take 1 tablet by oral route every 12 hours for 10 days gentamicin 0.3 % eye drops 07/03/2023 07/10/2023 i nstill 1 drop into affected eye(s) by ophthalmic route every 4 hours for 7 days cefdinir 300 mg capsule 07/03/2023 07/10/2023 take 1 capsule (300 mg) by oral route every 12 hours for 7 days Discontinued Name Start Date Discontinued Date SIG Comment s meclizine oral tablet 25 mg 12/26/2014 09/18/2016 take 0.5-1 tablet by oral route BID prn cephalexin 500 mg oral tablet 10/23/2020 10/23/2020 take 1 tablet (500 mg) by oral route every 12 hours for 7 days Problem List Not available. Vital Signs Date Time BP-Sys(mm[Hg] BP-Greta(mm[Hg]) HR(bpm) RR(rpm) Temp WT HT HC BMI BSA BMI Percentile O2 Sat(%) 2023 4:29: 00 PM 150 mm[Hg] 90 mm[Hg] 78 {beats}/ min 97.1 F 242 .25 lbs 64 in 41.5 817 kg/m 2 2.22 75 m2 96 % 07/03 1:55: 00 PM 170 mm[Hg] 90 mm[Hg] 83 {beats}/ min 99.4 F 251 .56 2 lbs 64. 5 in 42.5 1 kg/m 2 2.28 m2 98 % 2021 11:54 :00 AM 162 mm[Hg] 84 mm[Hg] 87 {beats}/ min 97.9 F 245 .5 lbs 64 in 42.1 395 kg/m 2 2.24 24 m2 93 % 2020 12:32 :00 PM 124 mm[Hg] 87 mm[Hg] 86 {beats}/ min 97.7 F 257 lbs 64. 5 in 43.4 3 kg/m 2 2.30 m2 97 % 2017 4:50: 00 PM 128 mm[Hg] 88 mm[Hg] 75 {beats}/ min 98.2 F 230 .18 7 lbs 63 in 40.7 755 kg/m 2 2.15 43 m2 97 % 2017 12:39 :00 PM 132 mm[Hg] 90 mm[Hg] 68 {beats}/ min 98.1 F 228 .5 lbs 99 % 05/20 4:37: 00 PM 142 mm[Hg] 86 mm[Hg] 66 {beats}/ min 98 F 235 .06 2 lbs 97 % 017 4:06: 00 PM 132 mm[Hg] 92 mm[Hg] 88 {beats}/ min 98.2 F 236 .12 5 lbs 100 % 2014 4:28: 00 PM 124 mm[Hg] 76 mm[Hg] 76 {beats}/ min 98.2 F 225 .5 lbs 97 % Social History Name Description Comments Denies alcohol abuse Denies illicit or street drugs Denies Tobacco Use History of Procedures Date Ordered Description Order Status 10/23/2020 12:00 AM URINE CULTURE/COLONY COUNT Re viewed 10/23/2020 12:00 AM URINALYSIS NONAUTO W/O SCOPE Reviewed 01/17/2022 12:00 AM Covid -Rapid Covid Veritor Re viewed 01/17/2022 12:00 AM Covid -Rapid Covid Veritor Re viewed 01/17/2022 12:00 AM Specimen collection for severe acute respiratory syndrome canales Reviewed 07/03/2023 12:00 AM SARS COVID, FLU, RSV MOLECUL AR Reviewed 07/03/2023 12:00 AM OFFICE/OUTPATIENT VISIT EST Reviewed 02/22/2024 5:07 PM ROUTINE VENIPUNCTURE Reviewed 02/22/2024 12:00 AM COMPLETE CBC W/AUTO DIFF WBC Reviewed 02/22/2024 12:00 AM COMPREHEN METABOLIC PANEL Rev iewed 02/22/2024 12:00 AM SARS COVID, FLU, RSV MOLECULA R Reviewed 02/22/2024 12:00 AM ROUTINE VENIPUNCTURE Reviewed 02/22/2024 12:00 AM FECES CULTURE AEROBIC BACT Re viewed 02/23/2024 12:00 AM ASSAY OF SERUM POTASSIUM Revi ewed Results Summary Date and Description Results 09/18/2016 4:07 PM Time Tested 1607Rapi d Strep negQC okInitials ht 10/23/2020 12:56 PM Time Tested 12:56pmC olor Ur yellowAppearance Fld clearGlucose Ur Ql negBilirub Ur Ql Strip negKetones Ur Ql Strip negSp Gr Ur Qn 1.020Hgb Ur Ql Strip trace intactpH Ur-LsCnc 7.0Urobilinogen Ur Strip-mCnc 0.20 mg/dLNitrate Ur Ql negWBC Est Ur Ql Strip smallInital at History of Past Illness Name Date of Onset Comments Hypothyroidism Sinusitis Dec 26 2014 4:29PM Vertigo Dec 26 2014 4:29PM Allergic Rhinitis hypertension Potassium deficiency depression Acute bronchitis Sep 18 2016 4:07PM Acute sinusitis Sep 18 2016 4:07PM Acute pharyngitis Sep 18 2016 4:07PM Cellulitis May 20 2017 4:42PM Lightheadedness May 20 2017 4:42PM Chest discomfort May 20 2017 4:42PM Chest heaviness May 20 2017 4:42PM Weakness May 20 2017 4:42PM Sinusitis, Acute Feb 18 2018 12:40PM Gout Feb 18 2018 12:40PM Sinusitis Apr 28 2018 4:51PM Dysuria Oct 23 2020 12:34PM Urinary frequency Oct 23 2020 12:34PM Low back pain Oct 23 2020 12:34PM URI (upper respiratory infection) Jan 17 2022 10 :54AM Sinusitis Jan 22 2022 11:56AM Bronchitis Jan 22 2022 11:56AM Otitis media Jan 22 2022 11:56AM Conjunctivitis Jul 03 2023 1:58PM Close exposure to 2019 novel coronavirus Jul 03 2023 1:58PM Sinus congestion Jul 03 2023 1:58PM Cough Jul 03 2023 1:58PM Fever Feb 22 2024 4:35PM Lower abdominal pain Feb 22 2024 4:35PM Diarrhea Feb 22 2024 4:35PM Bitten or stung by nonvenomo us insect and other nonvenomous arthropods, initial encounter Feb 22 2024 4:35PM Hypokalemia Feb 22 2024 4:35PM Payers Insurance Name Company Name Plan Name Plan Number Policy Number Policy Group Number Start Date Medicare [place] Medicare Primary [id number] N/A [facility] [id number] N/A History of Encounters Visit Date Visit Type Provider 02/23/2024 Lab Alex patino DO 02/22/2024 Office Visit Siir Cantu INVESTIGATIVE AGENT 07/03/2023 Office Visit Dewayne Monge INVESTIGATIVE AGENT-C 01/22/2022 Office Visit Rupali Gutierrez PA-C 01/17/2022 Office Visit Garrison Packer INVESTIGATIVE AGENT 10/23/2020 Office Visit Karissa Treadwell [facility], 04/28/2018 Office Visit Karissa Treadwell [facility], 02/18/2018 Office Visit Lolly Goldman [facility], 05/20/2017 Office Visit Karissa Treadwell [facility], 09/18/2016 Office Visit Yudy Lin [facility] , 12/26/2014 Office Visit Herve Vargas
--- OUTSIDE RECORDS SUMMARY | 2024-08-12 14:19 | XMS_ITS ---
Author Organization Unknown Address [address] [place] [phone] Phone Care Team Providers Care Peanut Vendor Name Role Phone MAIK HAIDER Attending Unavailable PHYSICIAN NOT ON FILE Primary Unavailabl e Social History Type Status Start Date End Date Code Code Syst em Smoking History Never smoker (Never Smoked) 257607822 SNOMED CT Sex Female Hospital Discharge Instructions Should you have any questions prior to discharge, please contact a member of your healthcare team. If you have left the hospital and have any questions, please contact your primary care physician. Reason For Referral No Data Found Allergies and Adverse Reactions Allergy Substance Reaction Severity Start Date Concern Status Co de Code System CODEINE Active 4936 RxNorm Plan of Treatment No Data Found Encounters Encounter Diagnosis Start Date Code Code Sys tem Acute frontal sinusitis 02/18/2018 43162477 SNOM ED-CT Personal Care Team Section Performer Name Performer Role Active Date Inactive Da te
--- OUTSIDE RECORDS SUMMARY | 2024-08-12 14:19 | XMS_ITS ---
Author Organization Unknown Address [address] [place] [phone] Phone Care Team Providers Care Corn Cooker Name Role Phone NIKI Edmond [employer] DEPOSITING MACHINE TENDER-C Attending Unavailabl e PHYSICIAN NOT ON FILE Primary Unavailabl e Social History Type Status Start Date End Date Code Code Syst em Smoking History Never smoker (Never Smoked) 888572752 SNOMED CT Sex Female Hospital Discharge Instructions Should you have any questions prior to discharge, please contact a member of your healthcare team. If you have left the hospital and have any questions, please contact your primary care physician. Reason For Referral No Data Found Allergies and Adverse Reactions Allergy Substance Reaction Severity Start Date Concern Status Co de Code System CODEINE Active 4296 RxNorm Plan of Treatment No Data Found Encounters Encounter Diagnosis Start Date Code Code Sys tem Urinary tract infectious disease 10/23/2020 52819799 SNOMED-CT Personal Care Team Section Performer Name Performer Role Active Date Inactive Da marlin
--- OUTSIDE RECORDS SUMMARY | 2024-08-12 14:19 | XMS_ITS ---
Author Organization Unknown Address [address] [place] [address] [phone] Phone Care Team Providers Care Lpn Medical Assistant Name Role Phone NIKI HAROP-C Attending Unavailabl e PHYSICIAN NOT ON FILE Primary Unavailabl e Social History Type Status Start Date End Date Code Code Syst em Smoking History Never smoker (Never Smoked) [id number] SNOMED CT Sex Female Hospital Discharge Instructions Should you have any questions prior to discharge, please contact a member of your healthcare team. If you have left the hospital and have any questions, please contact your primary care physician. Reason For Referral No Data Found Allergies and Adverse Reactions Allergy Substance Reaction Severity Start Date Concern Status Co de Code System CODEINE Active 6132 RxNorm Plan of Treatment No Data Found Encounters Encounter Diagnosis Start Date Code Code Sys tem Chronic sinusitis 04/28/2018 [id number] SNOMED-CT Personal Care Team Section Performer Name Performer Role Active Date Inactive Da te
--- OUTSIDE RECORDS SUMMARY | 2024-08-12 14:19 | XMS_ITS ---
Author Organization Unknown Address [address] [place] [address] [phone] Phone Care Team Providers Care Yarn Dumper Name Role Phone NIKI Edmond RECORD KEEPER-C Attending Unavailabl e PHYSICIAN NOT ON FILE Primary Unavailabl e Social History Type Status Start Date End Date Code Code Syst em Smoking History Never smoker (Never Smoked) [id number] SNOMED CT Sex Female Hospital Discharge Instructions Should you have any questions prior to discharge, please contact a member of your healthcare team. If you have left the hospital and have any questions, please contact your primary care physician. Reason For Referral No Data Found Allergies and Adverse Reactions Allergy Substance Reaction Severity Start Date Concern Status Co de Code System CODEINE Active 4214 RxNorm Plan of Treatment No Data Found Encounters Encounter Diagnosis Start Date Code Code Sys tem Cellulitis of left upper limb 05/20/2017 SNOMED-CT Personal Care Team Section Performer Name Performer Role Active Date Inactive Da te
--- OUTSIDE RECORDS SUMMARY | 2024-08-12 14:19 | XMS_ITS ---
Author Organization Unknown Address [address] [place] [address] [phone] Phone Care Team Providers Care Erp Programmer Name Role Phone NIKI Edmond STRIPPER LATEX-C Attending Unavailabl e PHYSICIAN NOT ON FILE Primary Unavailabl e Social History Type Status Start Date End Date Code Code Syst em Smoking History Never smoker (Never Smoked) [id number] SNOMED CT Sex Female Hospital Discharge Instructions Should you have any questions prior to discharge, please contact a member of your healthcare team. If you have left the hospital and have any questions, please contact your primary care physician. Reason For Referral No Data Found Allergies and Adverse Reactions Allergy Substance Reaction Severity Start Date Concern Status Co de Code System CODEINE Active 6073 RxNorm Plan of Treatment No Data Found Encounters Encounter Diagnosis Start Date Code Code Sys tem Dysuria 10/23/2020 [id number] SNOMED-CT Personal Care Team Section Performer Name Performer Role Active Date Inactive Da te
--- OUTSIDE RECORDS SUMMARY | 2024-08-12 14:20 | XMS_ITS ---
Author Organization Unknown Address [address] [place] [address] [phone] Phone Care Team Providers Care Pumper Gager Name Role Phone KRYSTLE VERA Attending Unavailable PHYSICIAN NOT ON FILE Primary Unavailabl e Social History Type Status Start Date End Date Code Code Syst em Smoking History Never smoker (Never Smoked) [id number] SNOMED CT Sex Female Hospital Discharge Instructions Should you have any questions prior to discharge, please contact a member of your healthcare team. If you have left the hospital and have any questions, please contact your primary care physician. Reason For Referral No Data Found Allergies and Adverse Reactions Allergy Substance Reaction Severity Start Date Concern Status Co de Code System CODEINE Active 9323 RxNorm Plan of Treatment No Data Found Encounters Encounter Diagnosis Start Date Code Code Sys tem Upper respiratory infection 01/17/2022 06690414 SNOMED-CT Personal Care Team Section Performer Name Performer Role Active Date Inactive Da te
--- OUTSIDE RECORDS SUMMARY | 2024-08-12 14:20 | XMS_ITS ---
Author Organization Unknown Address [address] [place] [address] [phone] Phone Care Team Providers Care Mimeograph Operator Name Role Phone ESTELITA Jose Attending Unavailable PHYSICIAN NOT ON FILE Primary Unavailabl e Social History Type Status Start Date End Date Code Code Syst em Smoking History Never smoker (Never Smoked) [id number] SNOMED CT Sex Female Hospital Discharge Instructions Should you have any questions prior to discharge, please contact a member of your healthcare team. If you have left the hospital and have any questions, please contact your primary care physician. Reason For Referral No Data Found Allergies and Adverse Reactions Allergy Substance Reaction Severity Start Date Concern Status Co de Code System CODEINE Active 0612 RxNorm Plan of Treatment No Data Found Encounters Encounter Diagnosis Start Date Code Code Sys tem Diarrhea 02/23/2024 [id number] SNOMED-CT Personal Care Team Section Performer Name Performer Role Active Date Inactive Da marlin
--- OUTSIDE RECORDS SUMMARY | 2024-08-12 14:20 | XMS_ITS ---
Author Organization Unknown Address [address] [place], [place] [phone] Phone Care Team Providers Care Ornamental Rail Installer Name Role Phone JACK MACHADO Attending Unavailable PHYSICIAN NOT ON FILE Primary Unavailabl e Social History Type Status Start Date End Date Code Code Syst em Smoking History Never smoker (Never Smoked) 590074048 SNOMED CT Sex Female Hospital Discharge Instructions Should you have any questions prior to discharge, please contact a member of your healthcare team. If you have left the hospital and have any questions, please contact your primary care physician. Reason For Referral No Data Found Allergies and Adverse Reactions Allergy Substance Reaction Severity Start Date Concern Status Co de Code System CODEINE Active 6747 RxNorm Plan of Treatment No Data Found Encounters Encounter Diagnosis Start Date Code Code Sys tem Toxic effect of venom of bee s, accidental (unintentional), subsequent encounter 05/20/2017 SN OMED-CT Personal Care Team Section Performer Name Performer Role Active Date Inactive Da marlin
--- OUTSIDE RECORDS SUMMARY | 2024-08-12 14:20 | XMS_ITS ---
Author Organization Unknown Address [address] [place] [address] [phone] Phone Care Team Providers Care It Risk And Assurance Manager Name Role Phone KRYSTLE VERA Attending Unavailable PHYSICIAN NOT ON FILE Primary Unavailabl e Social History Type Status Start Date End Date Code Code Syst em Smoking History Never smoker (Never Smoked) 537651901 SNOMED CT Sex Female Hospital Discharge Instructions Should you have any questions prior to discharge, please contact a member of your healthcare team. If you have left the hospital and have any questions, please contact your primary care physician. Reason For Referral No Data Found Allergies and Adverse Reactions Allergy Substance Reaction Severity Start Date Concern Status Co de Code System CODEINE Active 1623 RxNorm Plan of Treatment No Data Found Encounters Encounter Diagnosis Start Date Code Code Sys tem Sinusitis 01/22/2022 67245355 SNOMED-CT Personal Care Team Section Performer Name Performer Role Active Date Inactive Da te
--- OUTSIDE RECORDS SUMMARY | 2024-08-12 14:20 | XMS_ITS ---
Author Organization Unknown Address [address] [place] [address] [phone] Phone Care Team Providers Care Inside Upholsterer Name Role Phone KRYSTLE VERA Attending Unavailable PHYSICIAN NOT ON FILE Primary Unavailabl e Social History Type Status Start Date End Date Code Code Syst em Smoking History Never smoker (Never Smoked) 078150137 SNOMED CT Sex Female Hospital Discharge Instructions Should you have any questions prior to discharge, please contact a member of your healthcare team. If you have left the hospital and have any questions, please contact your primary care physician. Reason For Referral No Data Found Allergies and Adverse Reactions Allergy Substance Reaction Severity Start Date Concern Status Co de Code System CODEINE Active 4890 RxNorm Plan of Treatment No Data Found Encounters Encounter Diagnosis Start Date Code Code Sys tem Nasal congestion 07/03/2023 09362098 SNOMED-CT Personal Care Team Section Performer Name Performer Role Active Date Inactive Da te
--- OUTSIDE RECORDS SUMMARY | 2024-08-12 14:20 | XMS_ITS ---
Author Organization Unknown Address [address] [place] [address] [phone] Phone Care Team Providers Care Senior Cytotechnologist Name Role Phone NA HADLEY Joshua Attending Unavailable PHYSICIAN NOT ON FILE Primary Unavailabl e Social History Type Status Start Date End Date Code Code Syst em Smoking History Never smoker (Never Smoked) 193497670 SNOMED CT Sex Female Hospital Discharge Instructions Should you have any questions prior to discharge, please contact a member of your healthcare team. If you have left the hospital and have any questions, please contact your primary care physician. Reason For Referral No Data Found Allergies and Adverse Reactions Allergy Substance Reaction Severity Start Date Concern Status Co de Code System CODEINE Active 2057 RxNorm Plan of Treatment No Data Found Encounters Encounter Diagnosis Start Date Code Code Sys tem Lower abdominal pain 02/22/2024 10586862 SNOMED- CT Personal Care Team Section Performer Name Performer Role Active Date Inactive Da te
--- OUTSIDE RECORDS SUMMARY | 2024-08-12 14:21 | XMS_ITS ---
Author Organization Unknown Address [address] [place], [place] [phone] Phone Care Team Providers Care Mechanical Systems Design Engineer Name Role Phone ESTELITA THOMPSON Rebeca Attending Unavailable PHYSICIAN NOT ON FILE Primary Unavailabl e Results GI PANEL FILMARRAY PCR - Col lect Date/Time: 02/23/2024 18:40 [facility] ID: [id number] [address] [facility], [id number] LOINC: Test Value Unit Reference Range Code Code System Flag CAMPYLOBACTER Not Detected NOT_DETECT C DIFFICILE TOXIN A/B Not Detected NOT_DETECT P SHIGELLOIDES Not Detected NOT_DETECT SALMONELLA Not Detected NOT_DETECT VIBRIO Not Detected NOT_DETECT VIBRIO CHOLERAE Not Detected NOT_DETECT Y ENTEROCOLITICA Not Detected NOT_DETECT ENTEROAGGREGATIVE E. COLI (EAEC) Not Detected NOT_DETECT ENTEROPATHOGENIC E. COLI (EPEC) Not Detected NOT_DETECT ENTEROTOXIGENIC E. COLI (ETEC) lt/st Not Detected NOT_DETECT SHIGA-LIKE TOXIN-PRO E. COLI (STEC) stx1/stx2 Not Detected NOT_DETECTED SHIG/ENTEROINVASIVE E. COLI (EIEC) Not Detected NOT_DETECT CRYPTOSPORIDIUM Not Detected NOT_DETECT CYCLO CAYETANENSIS Not Detected NOT_DETECT ENT HISTOLYTICA Not Detected NOT_DETECT GIARDIA LAMBLIA Not Detected NOT_DETECT ADENOV F 40/41 Not Detected NOT_DETECT ASTROVIRUS Not Detected NOT_DETECT NOROVIRUS GI/GII Not Detected NOT_DETECT ROTAVIRUS A Not Detected NOT_DETECT SAPOVIRUS Not Detected NOT_DETECT Social History Type Status Start Date End Date Code Code Syst em Smoking History Never smoker (Never Smoked) 130291232 SNOMED CT Sex Female Hospital Discharge Instructions Should you have any questions prior to discharge, please contact a member of your healthcare team. If you have left the hospital and have any questions, please contact your primary care physician. Reason For Referral No Data Found Allergies and Adverse Reactions Allergy Substance Reaction Severity Start Date Concern Status Co de Code System CODEINE Active 0636 RxNorm Plan of Treatment No Data Found Encounters Encounter Diagnosis Start Date Code Code Sys tem Fever, unspecified 02/23/2024 SNOMED-CT Personal Care Team Section Performer Name Performer Role Active Date Inactive Da te
--- OUTSIDE RECORDS SUMMARY | 2024-08-12 14:21 | XMS_ITS ---
Author Organization Unknown Address [address] [place], [place] [phone] Phone Care Team Providers Care Typing Bookkeeper Name Role Phone THI RAMÍREZ Attending Unavailable PHYSICIAN NOT ON FILE Primary Unavailabl e Results CBC W DIFF - Collect Date/Ti me: 02/23/2024 16:43 [facility] ID: [id number] [address] [facility], [id number] LOINC: 17796-1 Test Value Unit Reference Range Code Code System Flag WBC 9.24 10*3/uL 3.58-11.07 RBC 4.37 10*6/uL 3.69-4.88 HGB 12.9 g/dL 11.5-14.4 HCT 38.6 %{vol} 33.3-41.4 MCV 88.3 fL 79.3-94.8 MCH 29.5 pg 26.8-33.2 MCHC 33.4 g/dL 33.5-35.5 L RDW 14.0 % 12.0-15.1 PLT 233 10*3/uL 165-353 MPV 10.7 fL 9.0-13.0 NE% 63.4 %/100{WBC} 43.3-71.9 LY% 14.8 %/100{WBC} 16.8-43.5 L MO% 7.4 %/100{WBC} 4.6-12.4 EO% 13.3 %/100{WBC} 0.0-6.0 H BA% 0.8 %/100{WBC} 0.0-1.0 NE# 5.9 10*3/uL 1.9-7.2 LY# 1.4 10*3/uL 1.1-2.7 MO# 0.7 10*3/uL 0.3-0.8 EO# 1.23 10*3/uL 0.00-0.40 H BA# 0.07 10*3/uL 0.00-0.10 COMPREHENSIVE METABOLIC PANE L - Collect Date/Time: 02/23/2024 16:43 [facility] ID: [id number] [address] [place] [address] [id number] LOINC: Test Value Unit Reference Range Code Code System Flag GLUCOSE 104 mg/dL 70-99 H BUN 21 mg/dL 6-20 H CREATININE 1.24 mg/dL 0.50-1.20 H BUN/CR RATIO 16.94 mg/mg 6.00-20.00 SODIUM 144.0 mmol/L 135.0-145.0 POTASSIUM 3.80 mmol/L 3.60-5.00 CHLORIDE 114.0 mmol/L 101.0-111.0 H CO2 20 mmol/L 21-32 L ANION GAP 13.40 mmol/L 8.00-16.00 CALCIUM 9.2 mg/dL 8.4-10.2 ALBUMIN 3.7 g/dL 3.2-5.5 PROTEIN TOT 7.00 g/dL 6.40-8.30 GLOBULIN 3.30 g/dL 1.40-4.80 A/G RATIO 1 {Relative}% 1-2 ALK PHOS 108 U/L 38-126 TBIL 0.47 mg/dL 0.20-1.00 SGPT 11 U/L 6-55 SGOT 15 U/L 10-42 eGFR 42 ml/min/1.73^2 >60 L CALC OSMOLALITY 301 mosm/kg 285-295 H Social History Type Status Start Date End Date Code Code Syst em Smoking History Never smoker (Never Smoked) [id number] SNOMED CT Sex Female Hospital Discharge Instructions Should you have any questions prior to discharge, please contact a member of your healthcare team. If you have left the hospital and have any questions, please contact your primary care physician. Reason For Referral No Data Found Allergies and Adverse Reactions Allergy Substance Reaction Severity Start Date Concern Status Co de Code System CODEINE Active 1814 RxNorm Plan of Treatment No Data Found Encounters Encounter Diagnosis Start Date Code Code Sys tem Abnormal finding of blood chemistry, unspecified 07/16 /2024 SNOMED-CT Personal Care Team Section Performer Name Performer Role Active Date Inactive Da te
== END ==
LOC: HO.CARD 12:47
PROVIDERS: Visit Provider Internal Medicine Cardiovascular Disease
DX: I35.0 Nonrheumatic aortic (valve) stenosis (principal)
CPT/HCPCS: 93306

== ENCOUNTER → 2024-08-12 13:03 | Outpatient (BNV) | payer MEDICARE, OTHER, SELFPAY | PROVIDERS: Visit Provider Internal Medicine Cardiovascular Disease | DX: I35.0 Nonrheumatic aortic (valve) stenosis (principal); I36.1 Nonrheumatic tricuspid (valve) insufficiency | CPT/HCPCS: 93306 ==

== ENCOUNTER 2024-09-05 10:37 | Outpatient (AMB) | payer MEDICARE, OTHER, SELFPAY ==
--- NOTE | 2024-09-05 10:56 | A.OFFVIS_ITS ---
Vital Signs 09/05/24 10:57 Height 5 ft 4 in Weight 251 lb 5.231 oz BMI 43.1 BP 128/68 Blood Pressure Location Lt brachial Position Sitting Pulse 58 Pulse Source Monitor Intake Visit Reasons: 1 yr f/up w/ echo Allergies codeine Allergy (Verified 03/30/23 13:30) Vomiting Medication List - Last Reconciled 09/05/24 by Vasyl Sung MD allopurinol 100 mg PO DAILY amlodipine (Norvasc) 5 mg PO DAILY aspirin 81 mg PO DAILY cetirizine 5 mg PO DAILY PRN cholecalciferol (vitamin D3) 25 mcg PO DAILY escitalopram oxalate 10 mg PO DAILY furosemide 20 mg PO DAILY hydroxychloroquine 200 mg PO L. acidophilus/Bifid. animalis 2 billion cell (One-A-Day Trubiotics) caps PO levothyroxine 100 mcg PO DAILY losartan 100 mg PO BID potassium chloride ER 20 mEq PO DAILY HPI Comments Details: Yovana comes for follow-up. She had in last fall and event with visual loss in her right eye, amaurosis fugax. She was then worked up and said had a carotid ultrasound and that was within acceptable limits. She had no prolonged palpitation irregular heartbeat. She had echocardiogram recently which showed mild aortic stenosis which is unchanged from before. She was then started on aspirin therapy. She is still not on a statin therapy. Blood pressures been well optimized. She has no other significant obvious symptoms. No exertional chest pain. Continues to have exertional shortness of breath although this is unchanged. No orthopnea, PND, leg edema. [facility] Medical History Anxiety Gout HTN (hypertension) Surgical History Hx of carpal tunnel repair Family History Father CVD (cardiovascular disease) Mother CVD (cardiovascular disease) Social History Alcohol intake: current Alcohol intake frequency: holidays/special occasions only Patient Tobacco Use Status: Never used Tobacco Review of Systems Const Denies weakness ENT Denies dizziness Card Denies chest pain, Denies chest pain with activity, Denies syncope, Denies rapid heart rate, Denies pedal edema, Denies edema, Denies leg edema, Denies lightheadedness, Denies palpitations, Denies dyspnea, Denies dyspnea on exertion and Denies orthopnea Resp Denies cough, Denies dyspnea and Denies dyspnea on exertion GI Denies hematochezia and Denies change in stool character Musc Denies abnormal gait, Denies muscle cramps, Denies muscle weakness, Denies numbness, Denies radiating pain into limb and Denies tingling Neuro Denies abnormal gait, Denies dizziness, Denies syncope, Denies numbness, Denies tingling and Denies weakness Endo Denies palpitations Physical Exam Vital Signs: Last Vital Signs Pulse 58 09/05/24 10:57 BP 128/68 09/05/24 10:57 BMI result Body Mass Index 43.1 Const General: cooperative, healthy appearing, comfortable and no acute distress Orientation/consciousness: patient oriented x3 Neck Neck: Yes normal visual inspection Resp Effort & Inspection: normal respiratory effort Auscultation: clear to auscultation bilaterally, no crackles, no rales, no rhonchi and no wheezes Cardio Jugular venous distension: no JVD Rate: regular rate Rhythm: regular rhythm Heart sounds: S1 normal heart sound present, S2 normal heart sound present, Murm ur heart sound present (Systolic) systolic mid, decrescendo and crescendo and no rubs Neuro General: patient oriented x3 Extrem General: Yes normal to inspection Psych Appearance: grossly normal Mental Status: mental status grossly normal Speech and movement: Normal speech and movement present Office Procedures EKG Details: EKG shows normal sinus rhythm low-voltage QRS poor R-wave progression most likely due to lead placement [id number], Complete Assessment & Plan Assessment & Plan (1) Aortic stenosis: Code(s): I35.0 - Nonrheumatic aortic (valve) stenosis Category: Medical Plan: Mild aortic stenosis which has remained stable. Continue aggressive risk factor modification. Continue aspirin therapy to protect from vascular events including TIA/CVA and another ocular event. This was discussed with her. Importance of this was discussed. Statin therapy to target goal LDL now closer to 55 mg/dL. See below. (2) Mild ascending aorta dilatation: Code(s): I77.810 - Thoracic aortic ectasia Category: Medical Plan: Mildly dilated ascending aorta which has remained stable. Continue aggressive blood pressure control which is currently well optimized advised to monitor blood pressure at home. Goal blood pressure less than 130/84. Low-salt diet was discussed advised to avoid sudden strenuous isometric exercise. (3) GUN FERTILIZER (central retinal artery occlusion): Code(s): H34.10 - Central retinal artery occlusion, unspecified eye Category: Medical Plan: Amaurosis fugax related to retinal artery occlusion. No carotid disease. Most likely related to calcific aortic valve disease. Agree with aspirin therapy. However she was recurrent events may need further evaluation for atrial fibrillation. Should be on aggressive lipid modification regimen target goal LDL less than 55 mg/dL. Advised lipid panel in near future and then determine statin dose and therapy. Will follow up in the clinic in 1 year's time, sooner p.r.n.. Thank allowing me to partake in his care Orders: Orders Lipid Panel Today H34.10 - Central retinal artery occlusion, unspecified eye Coding Level of Care Code Est Pt Level 4 (30728) Complex EM visit Add On G2211 Diagnoses Aortic stenosis I35.0 Mild ascending aorta dilatation I77.810 GUN FERTILIZER (central retinal artery occlusion) H34.10 CPT Codes EKG - CPT: 57168-[id number], Complete ([id number])
[2024-09-05 10:57] VITALS: BP 128/68; PULSE 58; BMI 43.1
--- OUTSIDE RECORDS SUMMARY | 2024-09-05 15:22 | XMS_ITS | Encounter Summary ---
Author Organization [facility] Address [address] [place] [address] Care Team Providers Care Sales Process Manager Name Role Phone Berenice De La Cruz MD Primary Care Pr ovider Encounter Details Date Type Department Care Team (Late st Contact Info) Description 08/20/2024 Telephone Adult Medicine [address] [phone] Berenice De La Cruz MD [address] [place] [phone] Social History Tobacco Use Types Packs/Day Years Used Date Smoking Tobacco: Former Cigarettes Q uit: 08/10/1985 Smokeless Tobacco: Never Alcohol Use Standard Drinks/Week Comments Not Currently 0 (1 standard drink = 0.6 oz pur e alcohol) Housing Instability Answer Date Recorde d Are you worried that in the next 2 months you may not have stable housing? No 07/27/2024 Food Access & Nutrition Answer Date Rec orded Do you have access to a vari ety of food including fruits and vegetables? Yes 07/27/2024 Access to Healthcare Answer Date Record ed Within the last 3 months, ho w many times did you visit the emergency department for your medical care? 0 07/27/2024 Health Literacy Answer Date Recorded How often do you need to hav e someone help you when you read instructions, pamphlets, or other written material from your doctor or pharmacy? Never 07/27/2024 Caregiver: How often do you need to have someone help you when you read instructions, pamphlets, or other written material from your doctor or pharmacy? Not on file 07/27/2024 Financial Risk Answer Date Recorded How hard is it for you to pa y for the very basics like food, housing, medical care, and air conditioning / heating? Patient declined 07/27/2024 Transportation Answer Date Recorded Has the lack of transportati on kept you from meetings, work, or from getting things needed for daily living? No Has the lack of transportati on kept you from medical appointments or from getting medications? No 07/27/2024 Social Isolation Answer Date Recorded How often do you feel lonely or isolated from th ose around you? Never 07/27/2024 Food Risk Answer Date Recorded Within the past 12 months we worried whether our food would run out before we got money to buy more. Never true 07/27/2024 Within the past 12 months th e food we bought just didn't last and we didn't have money to get more. Never true 07/27/2024 Dependent Care Answer Date Recorded Do you need help finding or paying for care for your loved ones. For example, children's institution attendant or elderly care for an older adult? No 07/27/2024 Education Answer Date Recorded Do you think completing more education or training, like finishing a GED, going to college, or learning a trade, would be helpful for you? N/A 07/27/2024 Employment and Income Answer Date Recor ded During the last four weeks, have you been actively looking for work? No 07/27/2024 Living Situation Answer Date Recorded What is your living situation? 1 09/27/2023 Sex and Gender Information Value Date Recorded Sex Assigned at Not on file Gender Identity Not on file Sexual Orientation Not on file Job Start Date Occupation Industry Not on file Not on file Not on file documented as of this encounter Ordered Prescriptions Prescription Sig Dispensed Refills Start Date End Da te semaglutide (Wegovy) 0.25 mg/0.5 mL injection penIndications:Morbid obesity with BMI of 40.0-44.9, adult ([facility]) Inject 0.25 mg under the skin every 7 (seven) days. 6 mL 08/20/2024 documented in this encounter Progress Notes * Berenice De La Cruz MD - 08/20/2024 8:45 AM EST Rebeka sent. documented in this encounter Plan of Treatment Upcoming Encounters Date Type Department Care Team (Late st Contact Info) Description 10/26/2024 10:30 AM EDT Office Visit Adult Medicine [facility] [address] [place] [phone] Faye Lopez PA [address] [place] [address] 01/03/2025 10:30 AM EDT Office Visit Nephrology - [facility] [address] [place] [phone] Harley Velazquez MD [address] [facility] [address] [place] [phone] 05/09/2025 1:30 PM EDT Office Visit Bariatric Surgery - [place] [address] [phone] Jessie Mcqueen PA [address] [address] documented as of this encounter Visit Diagnoses Diagnosis Morbid obesity with BMI of 40.0-44.9, adult ([facility])- Primary documented in this encounter Discontinued Medications Medication Sig Discontinue Reason Start Date End Da te tirzepatide (MOUNJARO) 2.5 mg/0.5 mL injectionIndications:Mor bid obesity with BMI of 40.0-44.9, adult ([facility]) Inject 0.5 mL (2.5 mg total) under the skin every 7 (seven) days. Duplicate order 07/28/2024 08/20/2024 documented as of this encounter Additional Health Concerns Assessment Noted Time PHQ-9 Depression Total Score: 0 07/28/20 9:22 AM EST A fall risk assessment has been complete d for the patient 07/28/2024 9:20 AM EST documented as of this encounter Care Teams Sales Process Manager Relationship Specialty Start Date End Date Berenice De La Cruz MD [address] [place] [address] PCP - General Internal Medicine 07/27/23 documented as of this encounter
--- OUTSIDE RECORDS SUMMARY | 2024-09-05 15:22 | XMS_ITS | Patient Health Record ---
[facility] Address [address] [place] [address] Care Team Providers Care Behaviorist Name Role Phone Ellie John Primary Care Provider Jose A Wang Unavailable [phone] Allergies Allergen (clinical drug ingredient) Drug/Non Drug [...] Once a day for 30 day(s) Active [place] 3 1000 MG 1 capsule Orally Once [...] Problem Acquired hammer toe of right foot (0204881413739 105) Other hammer toe(s) (acquired), right foot (M20.41) Active confirmed Problem Acquired hammer toe of left foot (2873616068886 103) Other hammer toe(s) (acquired), left foot [...] [employer] [address] [place] [address] [id number] oYvana Mayfield Self - patient is the insured [facility] [address] [place] [address] [id number] Yovana Mayfield Self - patient is [...]
--- OUTSIDE RECORDS SUMMARY | 2024-09-05 15:22 | XMS_ITS | Data Portability ---
Author Organization [place] [facility], [facility] Address [address] [address] Assessment Encounter Date Assessment Date Assessment LastModified by Organization Details LastModified Time 04/01/2024 04/01/2024 Asymmetric HL..Hx of numbness after COVID vaccine 2 years ago fadi Not available 04/01/2024 09:21:45 06/07/2024 06/07/2024 Patient here to discuss amplification as a first time user. She has [employer] which provides $1700 per ear.. She understands [...] our policies with her. Elsa Gaytan [place] [facility] william Not available 06/07/2024 12:19:52 Plan of Treatment Reminders Order Date Submit Date Provider Last Modified By Organization Details Last Modified Time Details Appointments None recorded. Lab None recorded. Referral None recorded. Procedures None recorded. Surgeries None recorded. Imaging MRI, brain + internal auditory canal, w/wo contrast - MRI, BRAIN + INTERNAL AUDITORY CANAL, W/WO CONTRAST [address] [facility] [address] [facility], [place], [address], 4 12:49:53 Medication Orders None recorded. Patient [...] contr ast No observ ation record ed. [facility] [address] [place], [address], 04/27/2024 12:51:48 08/08/20 audio gram No observ ation record ed. BARCODE Not Available 2023 10:00:30 Result Notes None recorded. Problems Name Problem SNOMED Code Status Onset Date Resolution Date Notes Provider Name and Address Organization Details Recorded Time [place] ce of salivary secretion 14750748 Active 2021 Xerostomi a; Note: Date Diagnosed : 2 11:08 AM (K11.7) Not Available [facility] 4 02:49:28 Paresthes ia 26389580 Active 2021 Paresthes ia of skin; Note: Date Diagnosed : 2 11:08 AM (R20.2) Not Available [facility] 4 02:49:29 Sensorine ural hearing loss of bilateral ears 576277495 Active 2023 ADRIANA CHURCHILL MD [address] [place] [address], [place], [phone] , [facility] - [facility] 4 09:20:36 Bilateral tinnitus 05445549718 02 Active 2023 ADRIANA CHURCHILL MD [address] [address], [place], [address] , [place] [facility] 09:21:05 Problem Notes None recorded. Procedures Surgical History None recorded. Imaging Results Imaging Date Name Status LastModified by Organiz ation Details LastModified Time 02/29/2024 audiogram completed Information not available 03/02/2024 09:04:14 02/29/2024 audiogram completed Information not available 03/28/2024 13:47:37 04/25/2024 MRI, brain + internal auditory canal, w/wo contrast completed [facility] [address] [facility], [place], [address], 04/27/2024 12:51:48 08/08/2024 audiogram completed BARCODE Information no t available 08/08/2024 10:00:30 Procedure Notes None recorded. Medical Equipment None Reported. Medications Name Sig Start Date Stop Date Status Note LastModified by Organization Details LastModified Time losartan 50 mg tablet active Medicatio n ID: [id number] Br and Name: losartan Send Method: E-Prescri bed Subs Allowed: subs OK Medica tionGener icName: losartan Not Available Not Available Not Available cyclobenza shawn 10 mg tablet TAKE 1 TABLET NEEDED BY ORAL ROUTE FOR 14 DAYS. active Not Available Not Available No t Available benzonatat e 200 mg capsule active Medicatio n ID: [id number] Br and Name: benzonata te Send Method: E-Prescri bed Subs Allowed: subs OK Medica tionGener icName: benzonata te Not Available Not Available Not Available ondansetro n HCl 4 mg tablet active Medicatio n ID: [id number] Br and Name: ondansetr on HCl Send [...] a dose pack active Medicatio n ID: [id number] Br and Name: prednison e Send Method: E-Prescri bed Subs Allowed: subs OK Medica tionGener icName: prednison e Not Available Not Available Not Available levothyrox ine 100 mcg tablet TAKE 1 TABLET BY MOUTH EVERY DAY active Not Available Not Available No t Available levothyrox ine 88 mcg tablet active Medicatio n ID: [id number] Br and Name: levothyro xine Send Method: E-Prescri bed Subs Allowed: subs OK Medica tionGener icName: levothyro xine Not Available Not Available Not Available gentamicin 0.3 % eye drops INSTILL 1 DROP INTO AFFECTED EYE(S) EVERY 4 HOURS FOR 7 DAYS active Not Available Not Available No t Available meclizine 25 mg tablet active Medicatio n ID: [id number] Br and Name: meclizine Send Method: E-Prescri bed Subs Allowed: subs OK Medica tionGener icName: meclizine Not Available Not Available Not Available tacrolimus 0.1 % topical ointment active Medicatio n ID: [id number] Br and Name: tacrolimu s Send Method: [...] 200 mg tablet active Medicatio n ID: [id number] Br and Name: hydroxych loroquine Send Method: E-Prescri bed Subs Allowed: subs OK Medica tionGener icName: hydroxych loroquine Not Available Not Available Not Available albuterol sulfate HFA 90 mcg/actuat ion aerosol inhaler active Medicatio n ID: [id number] Br and Name: albuterol sulfate S end Method: E-Prescri bed Subs Allowed: subs OK Medica tionGener icName: albuterol sulfate Not Available Not Available Not Available hydroxyzin e HCl 10 mg tablet PLEASE SEE ATTACHED FOR DETAILED DIRECTION S active Not Available Not Available No t Available bromphenir amine-pseu doephedrin e-DM 2 mg-30 mg-10 mg/5 mL oral syrup active Medicatio n ID: [id number] Br and Name: brompheni ramine-ps eudoeph-D M [...] 125 mg tablet active Medicatio n ID: [id number] Br and Name: amoxicill in-pot clavulana te [...] % dental paste active Medicatio n ID: [id number] Br and Name: Sodium Fluoride 5000 Dry [...] Updated DateTime 04/01/2024 162.56 cm 42.1 kg/m2 592900.13 g Flaquito Mccain [place] - [facility] 04/01/2024 08:59:24 Social History None recorded. Functional Status None recorded. Mental Status None recorded. Family History Nothing Reported. Medical History Condition Response Thyroid Problems Y Hypertension Y Anxiety Y Gynecological HistoryNo gynecological history recorded. Obstetrics History GPAL:G 0 P 0 0 0 0 Past Encounters Encounter ID Performer Location Encounter Start Date Encounter Closed Date Diagnosis/Indication Diagnosis SNOMED-CT Code Diagnosis ICD10 Code Diagnosis Note [id number] ADRIANA CHURCHILL MD [facility] [address] [address] 04/01/2024 08:48:05 04/01/2024 09:24:46 Sensorineural hearing loss of bilateral ears 842912770 H90.3 We reviewed the risks and benefits of obtaining an MRI scan. We discussed the potential rare complicati ons of gadolinium injection including but not limited to allergic reaction and kidney damage. We also discussed the possibilit y of incidental findings when brain imaging is performed Patient/Gu payton was instructed to contact the office to review results. They understand that unless they hear from the office specifical ly, not to assume the results are normal. Bilateral tinnitus [address] 102 H93.13 [id number] ELSA GAYTAN [place], CCC-A [place] [facility] [place] [address] [facility] [address] [address] 06/07/2024 10:50:23 06/07/2024 14:01:00 Bilateral tinnitus 2183803426 102 H93.13 Sensorineu ral hearing loss of bilateral ears 452656898 H90.3 Health Concerns Section Related Observation LastModified by Organization Detai ls LastModified Time None Recorded Concern Status LastModified by Organization Details LastModified Time None Recorded Advance Directives Directive None Recorded Payers Encounter Date Sequence Insurance Name Policy Number Policy Cr Covered Member ID Cr Member ID Guarantor Name 04/01/2024 2 FORMERLY [facility] - [employer] PLAN F (MEDICARE SUPPLEMENT) [id number] Yovana Galeana Mayfield [id number] Yovana Galeana Mayfield 04/01/2024 1 [place] [employer] [place] Yovana Galeana Mayfield [id number] Yovana Galeana Mayfield 06/07/2024 2 FORMERLY [facility] - S[employer]IOR [employer] PLAN F (MEDICARE SUPPLEMENT) [id number] Yovana Galeana Mayfield [id number] Yovana Galeana Mayfield 06/07/2024 1 [place] [facility] Yovana Galeana Mayfield [id number] Yovana Galeana Mayfield Notes Date Note Type Note Provider Name and Address Organization Details Recorded Time 04/01/2024 text/html Patient with bilateral tinnitus underwent electric showing mild asymmetry of hearing left compared to right at 2000 Hz ADRIANA ISSA MD [address] [place] [address], [phone], [facility] - [facility] 04/01/2024 09:22:33 OBGyn Episode No OBEpisode recorded.
--- OUTSIDE RECORDS SUMMARY | 2024-09-05 15:22 | XMS_ITS | Clinical Summary ---
Author Organization [address] [place] [address] [place] [phone] Phone Care Team Providers Care Driller And Broacher Name Role Phone Berenice De La Cruz MD Primary Care Pr ovider Allergies Active Allergy Reactions Criticality Noted Date Comments Cefdinir Headache,Nausea And Vomiting 013 Joint aches Codeine Nausea And Vomiting Medium 10/03/2005 Other Runny nose 08/28/2011 Seasonal Medications Medication Sig Dispensed Refills Start Date End Date Status cetirizine (ZyrTEC) 10 mg tablet Take 10 mg by mouth daily. Active furosemide (LASIX) 20 mg tablet Take 1 Tablet by mouth daily. 01/14/2024 Active hydroxychloroquine (PLAQUENIL) 200 mg tablet Take 1 Tablet by mouth daily. 08/26/2023 Active aspirin 81 mg EC tablet Take 1 Tablet by mouth daily. Active atorvastatin (LIPITOR) 20 mg tablet Take 1 Tablet by mouth daily. Active fxwfkt-wcugtnqb-opok ase (Creon) 36,000-114,000- 180,000 unit capsule,delayed release(DR/EC) TAKE 2 CAPS BY MOUTH THREE TIMES A DAY WITH MEALS AND 1 CAP ONE TO TWO TIMES A DAY WITH SNACKS Active gabapentin (NEURONTIN) 100 mg capsuleIndications:R estless legs syndrome Take 1 capsule (100 mg total) by mouth at bedtime. at bedtime 90 capsule 1 07/13/2024 Active potassium chloride 20 mEq tablet extended releaseIndications:E ssential hypertension, benign Take 1 tablet by mouth 1 (one) time each day. 90 tablet 1 07/13/2024 5 Active amLODIPine (NORVASC) 10 mg tabletIndications:Es sential hypertension, benign Take 1 tablet (10 mg total) by mouth 1 (one) time each day. 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 90 tablet 1 07/13/2024 5 Active escitalopram (LEXAPRO) 10 mg tabletIndications:An xiety Take 1 tablet (10 mg total) by mouth 1 (one) time each day. 90 each 1 07/13/2024 5 Active losartan (COZAAR) 100 mg tabletIndications:Es sential hypertension, benign Take 1 tablet (100 mg total) by mouth 1 (one) time each day. at bedtime. 90 each 1 07/13/2024 5 Active levothyroxine (SYNTHROID, LEVOTHROID) 100 mcg tabletIndications:Ac quired hypothyroidism Take 1 tablet (100 mcg total) by mouth 1 (one) time each day before breakfast. 90 each 1 07/13/2024 5 Active semaglutide (Wegovy) 0.25 mg/0.5 mL injection penIndications:Morbi d obesity with BMI of 40.0-44.9, adult ([facility]) Inject 0.25 mg under the skin every 7 (seven) days. 6 mL 08/20/2024 Active tirzepatide (MOUNJARO) 2.5 mg/0.5 mL injectionIndications :Morbid obesity with BMI of 40.0-44.9, adult ([facility]) Inject 0.5 mL (2.5 mg total) under the skin every 7 (seven) days. 6 mL 07/28/2024 5 Discontinue d(Duplicate order) Active Problems Problem Noted Date Diagnosed Date CKD (chronic kidney disease), stage III 05/27/20 24 Cardiac murmur 05/27/2024 Amaurosis fugax of right eye 05/27/2024 Assessment & Plan (07/13/2024 10:47 AM EST): Continue atorvastatin 20mg Nightly and Aspirin 81mg daily She completed CTA head /neck which showed no significant narrowing of the arteries in the head/neck. She was scheduled for an echocardiogram which had to cancel because she was out of town. 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 Sung obtains echos every year. She will follow up with him for this Morbid obesity with BMI of 40.0-44.9, adult 05/10 Assessment & Plan (07/13/2024 10:47 AM EST): Ideally she would be a good candidate for GLP-1 agonists however due to her family history of thyroid cancer in her brother will need to hold off on initiation of the medication. She will find out the type of thyroid cancer her brother had before we can proceed with medication. In the meantime she is referred to weight management. She has no hx of DM or prediabetes Orders: Ambulatory referral to Bariatric Surgery; Future Hemoglobin A1c; Future Sjogren's syndrome 02/14/2022 Overview (05/27/2024): [facility] Angioedema 09/19/2021 Overview (05/27/2024): Evaluated by hematology where they were able to rule out lymphoproliferative disease or lymphoma. Was advised to follow-up with tawer. 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 Uric acid; Future [place] infection 01/16/2020 Anxiety 02/09/2018 Assessment & Plan (07/13/2024 10:47 AM EST): Stable Orders: escitalopram (LEXAPRO) 10 mg tablet; Take 1 tablet (10 mg total) by mouth 1 (one) time each day. Vitamin D insufficiency 08/14/2017 Assessment & Plan (07/13/2024 10:47 AM EST): Continue daily vitamin D Lichen sclerosus of female genitalia 07/07/2016 Carpal tunnel syndrome on both sides 08/07/2015 Overview (05/27/2024): Had bilateral CTS surgery - Dr. Maloney IBS (irritable bowel syndrome) 05/09/2015 Overview (05/27/2024): Alternating diarrhea/constipation, onset approximately age 20s. Adrenal benign tumor 05/01/2015 Obstructive sleep apnea 08/25/2014 Overview (05/27/2024): UNTREATED (07/27/23) Restless legs syndrome 09/29/2008 Assessment & Plan (07/13/2024 10:47 AM EST): stable Orders: gabapentin (NEURONTIN) 100 mg capsule; Take 1 capsule (100 mg total) by mouth at bedtime. at bedtime Pure hypercholesterolemia 05/21/2007 Assessment & Plan (07/13/2024 10:47 AM EST): Continue atorvastatin 20mg Nightly and Aspirin 81mg daily Orders: Lipid panel with reflex to direct LDL; Future Comprehensive metabolic panel; Future Hypothyroidism 04/23/2006 Assessment & Plan (07/13/2024 10:47 AM EST): stable Orders: Thyroid stimulating hormone with reflex to free t4 and free t3; Future levothyroxine (SYNTHROID, LEVOTHROID) 100 mcg tablet; Take 1 tablet (100 mcg total) by mouth 1 (one) time each day before breakfast. Allergic rhinitis 11/14/2005 Assessment & Plan (07/13/2024 10:47 AM EST): Continue zyrtec daily Aphthous ulcer 11/14/2005 Essential hypertension, benign 10/03/2005 Assessment & Plan (07/13/2024 10:47 AM EST): Blood pressure is poorly controlled. Increase amlodipine from 5 mg daily to 10 mg daily. Continue losartan 100 mg daily. Follow-up in 2 weeks for blood pressure check with blood pressure log. Orders: potassium chloride 20 mEq tablet extended release; Take 1 tablet by mouth 1 (one) time each day. amLODIPine (NORVASC) 10 mg tablet; Take 1 tablet (10 mg total) by mouth 1 (one) time each day. losartan (COZAAR) 100 mg tablet; Take 1 tablet (100 mg total) by mouth 1 (one) time each day. at bedtime. Encounters Date Type Department Care Team Description 08/20/2024 Telephone Adult Medicine [address] [phone] Berenice De La Cruz MD 08/01/2024 Telephone Adult Medicine [address] [phone] Berenice De La Cruz MD Prior Auth (tirzepatide (MOUNJARO) 2.5 mg/0.5 mL injection) 07/28/2024 9:00 AM EST Office Visit Adult [address] [phone] Berenice De La Cruz MD Encounter for subsequent annual wellness visit (AWV) in Medicare patient (Primary Dx) 07/13/2024 9:45 AM EST Office Visit Adult [address] [phone] Berenice De La Cruz MD Morbid obesity with BMI of 40.0-44.9, adult ([facility]) (Primary Dx); Essential hypertension, benign; Pure hypercholesterolemi a; Amaurosis fugax of right eye; Acquired hypothyroidism; 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, unspecified site; Restless legs syndrome; Vitamin D insufficiency; Anxiety; Allergic rhinitis, unspecified seasonality, unspecified trigger; Encounter for screening for diabetes mellitus 06/06/2024 9:40 AM EDT - 06/06/2024 11:59 PM EDT Hospital Encounter [facility] CT Scan [address] [place] [address] Lyn Lopez PA Amaurosis fugax Discharge Disposition: Home or Self Care from Last 3 Months Immunizations Name Administration Dates Next Due Influenza Quadravalent, 0.5m l (Fluad) 65yo and older 05/09/2020 Influenza Quadravalent, 0.5m l (Fluzone High-dose) 65yo and older 05/24/2024,05/15/2021 Influenza trivalent, 0.5mL ( Fluad) 65yo and older 05/24/2024,07/27/2023,06/23/2022,05/15,05/09/2020,04/15/2019,04/30/2016 ,05/10/2015,05/17/2013,05/20/2011,04/11,06/01/2006 Influenza trivalent, 0.5mL ( Fluzone High-dose) 65yo and older 07/27/2023,06/23/2022,04/15/2019,04/30 Influenza trivalent, 0.5mL, preservative free (Fluarix; FluLaval; Fluzone) ages 6mo and older (Afluria) 3 years and older 06/03/2017 Influenza trivalent, with pr eservative (Fluzone; Afluria) 6mo and older 06/03/2017,05/10/2015,05/17/2013,05/20,05/02/2009,06/01/2006 Influenza, Unspecified 06/20/2014 Pneumococcal conjugate 13 va lent (Prevnar 13, PCV13) 2mo and older 01/23/2015 Pneumococcal polysaccharide 23 valent (Pneumovax 23) 2yo and older 07/18/2016 Td Tetanus diptheria (Tdvax) 7yo and older 06/23/2022,12/27/2001 Td, Unspecified 12/27/2001 Tdap Tetanus diptheria acell ular pertussis (Boostrix; Adacel) 7yo and older 03/21/2009 Surgical History Surgery Date Site/Laterality Comments HYSTERECTOMY PROCEDURE: HISTORICAL HYSTERECTOMY; COMMENT: TV[facility] TONSILLECTOMY PROCEDURE: HISTORICAL TONSILLECTOMY COLONOSCOPY PROCEDURE: HISTORICAL COLONOSCOPY; COMMENT: WNL TOTAL KNEE ARTHROPLASTY 2001, 2013 PROCEDURE: MD ARTHRP KNE CONDYLE&PLATU MEDIAL&LAT COMPARTMENTS; COMMENT: right, left BLADDER SUSPENSION 2002 PROCEDURE: HISTORICAL BLADDER SUSPENSION LAPAROSCOPIC GASTRIC BANDING 2005 PROCEDURE: LAP ADJUSTABLE GASTRIC BAND CHOLECYSTECTOMY 10/19/09 PROCEDURE: MD CHOLECYSTECTOMY; COMMENT: [facility] HERNIA REPAIR 10/19/09 PROCEDURE: REPAIR UMBILICAL HERNIA; COMMENT: [facility] COLONOSCOPY 09/02/2010 PROCEDURE: HISTORICAL COLONOSCOPY; COMMENT: Normal CARPAL TUNNEL RELEASE 07/2015, 08/2015 Bilateral PROCEDURE: HISTORICAL CARPAL TUNNEL REL BREAST BIOPSY or PROCEDURE: BX BREAST; PERC NEEDLE CORE W/IMAG GUID; COMMENT: NOT SURE WHAT SIDE Medical History Medical History Date Comments Essential hypertension, benign D X:Essential hypertension, benign Anxiety state, unspecified DX:An xiety state, unspecified Allergic rhinitis, cause unspecified DX:Allergic rhinitis, cause unspecified Depressive disorder, not els ewhere classified DX:Depressive disorder, not elsewhere classified; COMMENT: situational Unspecified hypothyroidism 04/23/2006 DX:Un specified hypothyroidism Rectal bleeding 1999 DX:Rectal bleedi ng Spondylolisthesis, grade 2 11/21/00 DX:Sp ondylolisthesis, grade 2; COMMENT: L5-S1 Lichen planus DX:Lichen planus ; COMMENT: ORAL, on biopsy Heart murmur DX:Heart murmur Inflammatory arthritis 01/15/2016 DX:Inflam matory arthritis Lichen sclerosus of female genitalia 2013 DX:Lichen sclerosus of female genitalia CKD (chronic kidney disease) , stage III (CMS/HCC) DX:CKD (chronic kidney disea se), stage III (HCC) Family History Medical History Relation Name Comments Breast cancer Aunt 1 m 60s Breast cancer Aunt 2 p 60s Paternal and M aternal Aunts Other: [place] Thyroid Brother CAD Depression Daughter Heart attack Father Dementia Maternal Grandfather Stroke Maternal Grandmother Heart failure Mother Colon cancer Other 1 Neg Hx Other: [place] Ovary, Cervical Other 2 Ne g Hx Dementia Paternal Grandmother Uterine cancer Neg Hx Relation Name Status Comments Aunt 1 m 60s Aunt 2 p 60s Alive Brother Alive Daughter Alive Father (Age 76) Maternal Grandfather (Age 86) Maternal Grandmother (Age 97) Mother Alive Other 1 Other 2 Paternal Grandfather electri roberta accident Paternal Grandmother (Age 80s) Social History Tobacco Use Types Packs/Day Years [...] care for your loved ones. For example, registered nurse maternal child or elderly care for an older adult? [...] file Not on file Not on file Obstetrics History Last Filed Vital Signs Vital Sign Reading Time Taken Comments Blood Pressure 111/68 07/28/2024 9:15 AM EST Pulse 63 07/28/2024 9:15 AM EST Temperature 36.9 ??C (98.4 ??F) 07/28/2024 9:15 AM ES T Respiratory Rate 17 07/28/2024 9:15 AM EST Oxygen Saturation - - Inhaled Oxygen Concentration - - Weight 112 kg (247 lb) 07/28/2024 9:15 AM EST Height 162.6 cm (5' 4 ) 07/28/2024 9:15 AM EST Body Mass Index 42.4 07/28/2024 9:15 AM EST Plan of Treatment Upcoming Encounters Date Type Department Care Team (Late st Contact Info) Description 10/26/2024 10:30 AM EDT Office Visit Adult Medicine [address] [phone] Lyn Lopez PA [address] [place] [address] 01/03/2025 10:30 AM EDT Office Visit Nephrology - [facility] [address] [place] [phone] Harley Velazquez MD [address] [phone] 05/09/2025 1:30 PM EDT Office Visit Bariatric Surgery - [place] [address] [facility] [address] [place] [phone] Jessie Mcqueen PA [address] [place] [address] Health Maintenance Due Date Last Done Comments Zoster Vaccines (1 of 2) 1997 Social Influencers of Health Screening 07/27/2025 07/27/2024 Depression Screening 07/28/2025 07/28/2024, 08/06/20 Falls Risk Assessment 07/28/2025 07/28/2024 , 07/28/2024, 01/14/2024 Hypertension/CHF/CAD Annual BMP Blood Test 07/28/2025 07/28/2024, 04/15/2024, 04/15/2024, Additional history exists Medicare Annual Wellness Visit 07/28/2025 07/28/2024 Cholesterol Screening (Lipid Panel) 07/28/2029 07/28/2024, 04/15/2024, 04/15/2024 DTaP,Tdap,and Td Vaccines (5 - Td or Tdap) 06/23/2032 06/23/2022, 03/21/2009, 12/27/2001, Additional history exists Osteoporosis Screening (Bone Density Screening) 08/24/2033 08/24/2023, 07/07/2017 Hepatitis C Screening Completed 04/20/2015 Pneumococcal Vaccine: 65+ Years Completed 07/18/2016, 01/23/2015 COVID-19 Vaccine Discontinued 07/15/2021, , 10/08/2020 Influenza Vaccine Completed 05/24/2024, , 07/27/2023, Additional history exists HIB Vaccines Aged Out No longer eligi ble based on patient's age to complete this topic HPV Vaccines Aged Out No longer eligi ble based on patient's age to complete this topic Hepatitis A Vaccines Aged Out No long er eligible based on patient's age to complete this topic Hepatitis B Vaccines Aged Out No long er eligible based on patient's age to complete this topic IPV Vaccines Aged Out No longer eligi ble based on patient's age to complete this topic MMR Vaccines Aged Out No longer eligi ble based on patient's age to complete this topic Meningococcal ACWY Vaccine Aged Out N o longer eligible based on patient's age to complete this topic RSV Immunization Patients 60+ Years Old Discontinued RSV Immunization Patients Under 20 months Aged Out No longer eligible based on patient's age to complete this topic Varicella Vaccines Aged Out No longer eligible based on patient's age to complete this topic Procedures Procedure Name Priority Date/Time Associated Diagnosis Comments C REACTIVE PROTEIN, HIGH SENSITIVITY Routine 07/28/2024 10:10 AM EST Morbid obesity with BMI of 40.0-44.9, adult ([facility]) Encounter for screening for diabetes mellitus Acquired hypothyroidism 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, unspecified site Pure hypercholesterolemia Polyarthritis LIPID PANEL WITH REFLEX TO DIRECT LDL Routine 07/28/2024 10:10 AM EST Pure hypercholesterolemia COMPREHENSIVE METABOLIC PANEL Routine 07/28/2024 10:10 AM EST Pure hypercholesterolemia URIC ACID Routine 07/28/2024 10:10 AM EST 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, unspecified site THYROID STIMULATING HORMONE WITH REFLEX TO FREE T4 AND FREE T3 Routine 07/28/2024 10:10 AM EST Acquired hypothyroidism HEMOGLOBIN A1C Routine 07/28/2024 10:10 AM EST Morbid obesity with BMI of 40.0-44.9, adult ([facility]) Encounter for screening for diabetes mellitus CT NECK ANGIOGRAPHY Routine 06/06/2024 3 :38 [address] BRAIN ANGIOGRAPHY Routine 06/06/2024 3:38 PM EDT Amaurosis fugax FALLS RISK ASSESSMENT Routine 01/14/2024 DXA BONE DENSITY STUDY 1+ SITS AXIAL SKEL Routine 08/24/2023 2:49 PM EST Asymptomatic menopausal state DEPRESSION SCREENING Routine 08/06/2023 HEPATITIS C SCREENING Routine 04/20/2015 from Last 3 Months or Most Recently Relevant to Health Maintenance Results * Thyroid stimulating hormone with reflex to free t4 and free t3 (07/28/2024 10:10 AM EST) TSH 3.71 0.40 - 4.00 mcIU/mL LAB CHEMISTRY METHOD 07/28/2024 12:47 PM [facility] Blood Venous blood specimen / Unknown Venipuncture / Unknown 07/28/2024 10:10 AM EST 07/28/2024 10:10 AM EST Berenice De La Cruz MD LAB BLOO D ORDERABLES [facility] [address] [place] [address], * Lipid panel with reflex to direct LDL (07/28/2024 10:10 AM EST) Cholesterol 185 0 - 200 mg/dL LAB CHEMISTRY METHOD 07/28/2024 12:43 PM [facility] Triglycerides 114 0 - 150 mg/dL LAB CHEMISTRY METHOD 07/28/2024 12:43 PM [facility] HDL 76 >=40 mg/dL LAB CHEMISTRY METHOD 07/28/2024 12:43 PM [facility] LDL Calculated 86 0 - 100 mg/dL LAB CHEMISTRY METHOD 07/28/2024 12:43 PM [facility] VLDL Cholesterol Roberta 22.8 mg/dL LAB CHEMISTRY METHOD 07/28/2024 12:43 PM [facility] Non HDL Chol. (LDL+VLDL) 109 <145 mg/dL LAB CHEMISTRY METHOD 07/28/2024 12:43 PM [facility] Chol/HDL Ratio 2.4 0.0 - 4.4 LAB CHEMISTRY METHOD 07/28/2024 12:43 PM EST [facility] Blood Venous blood specimen / Unknown Venipuncture / Unknown 07/28/2024 10:10 AM EST 07/28/2024 10:10 AM EST Berenice De La Cruz MD LAB BLOO D ORDERABLES Performing Organization Address [facility]/ZIP Co de Phone Number [facility] [address] [place] [address], [place] [phone] * C reactive protein, high sensitivity (07/28/2024 10:10 AM EST) Pathologist [facility] CRP, High Sensitivity 5.07 mg/L LAB CHEMISTRY METHOD 07/28/2024 12:39 PM EST [facility] Comment: Cardio CRP Relative Risk Categories ?? Low ? <1.0 mg/L ?? Average ?? 1.0 - 3.0 mg/L ?? High ?>3.0 mg/L Levels >10.0 mg/L should be ignored and repeated when the patient is stable and infection or inflammation is ruled out. HRT (estrogens) consistently increase cardio CRP levels. Risk estimates for women on HRT may need to be calibrated downward. Blood Venous blood specimen / Unknown Venipuncture / Unknown 07/28/2024 10:10 AM EST 07/28/2024 10:10 AM EST Colton Martinez MD LAB BLOOD ORDERABLES Performing Organization Address City/[facility]/ZIP Co de Phone Number [facility] [address] [place] [address], [place] [phone] * Uric acid (07/28/2024 10:10 AM EST) Pathologist [facility] Uric Acid 5.4 3.1 - 7.8 mg/dL LAB CHEMISTRY METHOD 07/28/2024 12:43 PM EST [facility] Blood Venous blood specimen / Unknown Venipuncture / Unknown 07/28/2024 10:10 AM EST 07/28/2024 10:10 AM EST Berenice De La Cruz MD LAB BLOO D ORDERABLES Performing Organization Address [facility]/State/ZIP Co de Phone Number [facility] [address] [place] [address], [place] [phone] * Hemoglobin A1c (07/28/2024 10:10 AM EST) Pathologist [facility] Hemoglobin A1C 5.2 <6.5 % LAB CHEMISTRY METHOD 07/28/2024 2:05 PM EST [facility] Mean Bld Glu Estim. 103 mg/dL LAB CHEMISTRY METHOD 07/28/2024 2:05 PM [facility] Blood Venous blood specimen / Unknown Venipuncture / Unknown 07/28/2024 10:10 AM EST 07/28/2024 10:10 AM EST Berenice De La Cruz MD LAB BLOO D ORDERABLES Performing Organization Address City/[facility]/ZIP Co de Phone Number [facility] [address] [place] [address], [place] [phone] * (ABNORMAL) Comprehensive metabolic panel (07/28/2024 10:10 AM EST) [facility] Sodium 144 133 - 145 mmol/L LAB CHEMISTRY METHOD 07/28/2024 12:43 PM [facility] Potassium 4.4 3.5 - 5.5 mmol/L LAB CHEMISTRY METHOD 07/28/2024 12:43 PM [facility] Chloride 111(H) 96 - 110 mmol/L LAB CHEMISTRY METHOD 07/28/2024 12:43 PM [facility] CO2 26 21 - 32 mmol/L LAB CHEMISTRY METHOD 07/28/2024 12:43 PM [facility] Anion Gap 7 3 - 11 LAB CHEMISTRY METHOD 07/28/2024 12:43 PM [facility] Glucose 103(H) 70 - 100 mg/dL LAB CHEMISTRY METHOD 07/28/2024 12:43 PM [facility] BUN 23 5 - 25 mg/dL LAB CHEMISTRY METHOD 07/28/2024 12:43 PM [facility] Creatinine 1.20(H) 0.50 - 1.10 mg/dL LAB CHEMISTRY METHOD 07/28/2024 12:43 PM [facility] eGFR 47(L) >=60 mL/min/1. 73m2 LAB CHEMISTRY METHOD 07/28/2024 12:43 PM [facility] Comment:Calculation based on the??Chronic Kidney Disease Epidemiology Collaboration (CKD-EPI) equation refit??without adjustment for race. BUN/Creatinine Ratio 19.2 LAB CHEMISTRY METHOD 07/28/2024 12:43 PM [facility] Calcium 9.6 8.5 - 10.5 mg/dL LAB CHEMISTRY METHOD 07/28/2024 12:43 PM [facility] AST (SGOT) 12 10 - 42 unit/L LAB CHEMISTRY METHOD 07/28/2024 12:43 PM [facility] ALT (SGPT) 16 10 - 60 unit/L LAB CHEMISTRY METHOD 07/28/2024 12:43 PM [facility] Alkaline Phosphatase 84 42 - 121 unit/L LAB CHEMISTRY METHOD 07/28/2024 12:43 PM [facility] Total Protein 6.8 6.0 - 8.0 g/dL LAB CHEMISTRY METHOD 07/28/2024 12:43 PM [facility] Albumin 3.9 3.2 - 5.0 g/dL LAB CHEMISTRY METHOD 07/28/2024 12:43 PM [facility] Total Bilirubin 0.6 0.0 - 1.4 mg/dL LAB CHEMISTRY METHOD 07/28/2024 12:43 PM EST [facility] Blood Venous blood specimen / Unknown Venipuncture / Unknown 07/28/2024 10:10 AM EST 07/28/2024 10:10 AM EST Berenice De La Cruz MD LAB BLOO D ORDERABLES [facility] [address] [place] [address], * CT NECK ANGIOGRAPHY (06/06/2024 3:38 PM EDT) Anatomical Region Laterality Modality Computed Tomogra phy 06/06/2024 9:52 AM EDT Narrative 06/06/2024 3:38 PM EDT [facility] Diagnostic Imaging Department [address] [place] [address] Patient: ??YOVANA MAYFIELD ?/Age/Sex: 1945 - 79 - F Unit#: ??[id number] ? Location/Status: ??SPDICAT/REG CLI ? Mnemonic/Ordering Site: ??CTANECK/SPCT Ordering Physician: ??LYN LOPEZ CT Neck Angiography - 06/06/24 - 1018 Report Status:Signed Head CT and CT angiogram of the neck and [place], 06/06/2024. HISTORY: BLURRED VISION RT EYE. COMPARISON: MRI brain dated 01/21/2016. TECHNIQUE: Noncontrast head CT and CT angiogram of the neck and [place] with multiplanar reformats. IV contrast dose: 90 mL [id number]. Dose length product: 1708 mGy-cm. FINDINGS: Brain: No hemorrhage, edema, mass, or extra-axial fluid collection. ??No CT evidence of an acute large vessel infarct. ??Ventricles and sulci are age commensurate. ??Atherosclerotic calcifications of the carotid siphons. CT angiogram: Mild atherosclerotic calcification of the aortic arch. ??Standard three-vessel arch configuration. ??Visualized portions of the subclavian arteries are widely patent. ??Tortuous retropharyngeal course of the carotid arteries. Small amount of calcified plaque in the proximal left internal carotid artery without associated stenosis. ??The left vertebral artery is dominant. ??The right vertebral artery is diminutive above the PICA origin. ??No evidence of a vertebral stenosis in the neck. Mild atherosclerotic calcification of the carotid siphons without associated stenosis. ??The anterior and middle cerebral arteries are widely patent. The basilar artery is slightly small in caliber. ??There are prominent bilateral posterior communicating arteries and the P1 segments are small. ??Both toy assembler wood are patent without significant stenosis. There are no findings to suggest an aneurysm or vascular malformation. ??Patent dural venous sinuses. Sinuses/mastoids: Minimal mucosal thickening in the sphenoid sinuses. Orbits: Lens implants. Calvarium: Normal. Other: Mild degenerative changes of the temporomandibular joints. ??The central pulmonary arteries are prominent, a finding which can be seen in the setting of pulmonary arterial hypertension. ??Prominent degenerative changes of the cervical spine. IMPRESSION: No hemodynamically significant stenosis or occlusion of any of the major arteries of the head and neck. Dictating Physician: ??PANDA LARSON MD Electronically Signed by: ??PANDA LARSON MD Dic Date/Time: ??06/06/24 1448 Sign date/Time: ??06/06/24 1538 Procedure Note Panda Larson MD - 06/11/2024 [facility] Diagnostic Imaging Department [address] [place] [id number] Patient: YOVANA MAYFIELD Kervin /Age/Sex: 1945 - 79 - F Unit#: [id number] Location/Status: SPDICAT/REG CLI Mnemonic/Ordering Site: CTANECK/SPCT Ordering Physician: LYN LOPEZ CT Neck Angiography - 06/06/24 - 1018 Report Status:Signed Head CT and CT angiogram of the neck and [place] of [place], 06/06/2024. HISTORY: BLURRED VISION RT EYE. COMPARISON: MRI brain dated 01/21/2016. TECHNIQUE: Noncontrast head CT and CT angiogram of the neck and circleof Maya with multiplanar reformats. IV contrast dose: 90 mL ISOVUE-370. Dose length product: 1708 mGy-cm. FINDINGS: Brain: No hemorrhage, edema, mass, or extra-axial fluid collection. NoCT evidence of an acute large vessel infarct. Ventricles and sulci are age commensurate. Atherosclerotic calcifications of the carotid siphons. CT angiogram: Mild atherosclerotic calcification of the aortic arch.Standard three-vessel arch configuration. Visualized portions of the subclavianarteries are widely patent. Tortuous retropharyngeal course of the carotidarteries. Small amount of calcified plaque in the proximal left internal carotidartery without associated stenosis. The left vertebral artery is dominant. Theright vertebral artery is diminutive above the PICA origin. No evidence of a vertebral stenosis in the neck. Mild atherosclerotic calcification of the carotid siphons withoutassociated stenosis. The anterior and middle cerebral arteries are widely patent. The basilar artery is slightly small in caliber. There are prominentbilateral posterior communicating arteries and the P1 segments are small. Both PCAsare patent without significant stenosis. There are no findings to suggest an aneurysm or vascular malformation.Patent dural venous sinuses. Sinuses/mastoids: Minimal mucosal thickening in the sphenoid sinuses. Orbits: Lens implants. Calvarium: Normal. Other: Mild degenerative changes of the temporomandibular joints. Thecentral pulmonary arteries are prominent, a finding which can be seen in thesetting of pulmonary arterial hypertension. Prominent degenerative changes of thecervical spine. IMPRESSION: No hemodynamically significant stenosis or occlusion of any of the major arteries of the head and neck. Dictating Physician: PANDA LARSON MD Electronically Signed by: PANDA LARSON MD Dic Date/Time: 06/06/24 1448 Sign date/Time: 06/06/24 [address] PROCEDURES * CT BRAIN ANGIOGRAPHY (06/06/2024 3:38 PM EDT) Anatomical Region Laterality Modality Computed Tomogra phy 06/06/2024 9:52 AM EDT Narrative 06/06/2024 3:38 PM EDT [facility] Diagnostic Imaging Department [address] [place], [place] [id number] Patient: ??YOVANA MAYFIELD A ?/Age/Sex: 1945 79 - F Unit#: ??[id number] ? Location/Status: ??SPDICAT/REG CLI ? Mnemonic/Ordering Site: ??CTABRAIN/SPCT Ordering Physician: ??LYN LOPEZ CT Brain Angiography - 06/06/24 - 1018 Report Status:Signed Head CT and CT angiogram of the neck and [place] of [place], 06/06/2024. HISTORY: BLURRED VISION RT EYE. COMPARISON: MRI brain dated 01/21/2016. TECHNIQUE: Noncontrast head CT and CT angiogram of the neck and [place] of [place] with multiplanar reformats. IV contrast dose: 90 mL ISOVUE-370. Dose length product: 1708 mGy-cm. FINDINGS: Brain: No hemorrhage, edema, mass, or extra-axial fluid collection. ??No CT evidence of an acute large vessel infarct. ??Ventricles and sulci are age commensurate. ??Atherosclerotic calcifications of the carotid siphons. CT angiogram: Mild atherosclerotic calcification of the aortic arch. ??Standard three-vessel arch configuration. ??Visualized portions of the subclavian arteries are widely patent. ??Tortuous retropharyngeal course of the carotid arteries. Small amount of calcified plaque in the proximal left internal carotid artery without associated stenosis. ??The left vertebral artery is dominant. ??The right vertebral artery is diminutive above the PICA origin. ??No evidence of a vertebral stenosis in the neck. Mild atherosclerotic calcification of the carotid siphons without associated stenosis. ??The anterior and middle cerebral arteries are widely patent. The basilar artery is slightly small in caliber. ??There are prominent bilateral posterior communicating arteries and the P1 segments are small. ??Both toy assembler wood are patent without significant stenosis. There are no findings to suggest an aneurysm or vascular malformation. ??Patent dural venous sinuses. Sinuses/mastoids: Minimal mucosal thickening in the sphenoid sinuses. Orbits: Lens implants. Calvarium: Normal. Other: Mild degenerative changes of the temporomandibular joints. ??The central pulmonary arteries are prominent, a finding which can be seen in the setting of pulmonary arterial hypertension. ??Prominent degenerative changes of the cervical spine. IMPRESSION: No hemodynamically significant stenosis or occlusion of any of the major arteries of the head and neck. Dictating Physician: ??PANDA LARSON MD Electronically Signed by: ??PANDA LARSON MD Dic Date/Time: ??06/06/24 1448 Sign date/Time: ??06/06/24 1534 Procedure Note Panda Larson MD - 06/11/2024 [facility] Diagnostic Imaging Department [address] [place] [id number] Patient: YOVANA MAYFIELD Kervin Lam./Age/Sex: 1945 - 79 - F Unit#: [id number] Location/Status: SPDICAT/REG CLI Mnemonic/Ordering Site: CTABRAIN/SPCT Ordering Physician: LYN LOEPZ CT Brain Angiography - 06/06/24 - 1018 Report Status:Signed Head CT and CT angiogram of the neck and [place] of [place], 06/06/2024. HISTORY: BLURRED VISION RT EYE. COMPARISON: MRI brain dated 01/21/2016. TECHNIQUE: Noncontrast head CT and CT angiogram of the neck and circleof Maya with multiplanar reformats. IV contrast dose: 90 mL ISOVUE-370. Dose length product: 1708 mGy-cm. FINDINGS: Brain: No hemorrhage, edema, mass, or extra-axial fluid collection. NoCT evidence of an acute large vessel infarct. Ventricles and sulci are age commensurate. Atherosclerotic calcifications of the carotid siphons. CT angiogram: Mild atherosclerotic calcification of the aortic arch.Standard three-vessel arch configuration. Visualized portions of the subclavianarteries are widely patent. Tortuous retropharyngeal course of the carotidarteries. Small amount of calcified plaque in the proximal left internal carotidartery without associated stenosis. The left vertebral artery is dominant. Theright vertebral artery is diminutive above the PICA origin. No evidence of a vertebral stenosis in the neck. Mild atherosclerotic calcification of the carotid siphons withoutassociated stenosis. The anterior and middle cerebral arteries are widely patent. The basilar artery is slightly small in caliber. There are prominentbilateral posterior communicating arteries and the P1 segments are small. Both PCAsare patent without significant stenosis. There are no findings to suggest an aneurysm or vascular malformation.Patent dural venous sinuses. Sinuses/mastoids: Minimal mucosal thickening in the sphenoid sinuses. Orbits: Lens implants. Calvarium: Normal. Other: Mild degenerative changes of the temporomandibular joints. Thecentral pulmonary arteries are prominent, a finding which can be seen in thesetting of pulmonary arterial hypertension. Prominent degenerative changes of thecervical spine. IMPRESSION: No hemodynamically significant stenosis or occlusion of any of the major arteries of the head and neck. Dictating Physician: PANDA LARSON MD Electronically Signed by: PANDA LARSON MD Dic Date/Time: 06/06/24 1448 Sign date/Time: 06/06/24 [address] PROCEDURES * Falls Risk Assessment (01/14/2024) Falls Risk Assessment Abstracted Historical Provider [facility] * DXA BONE DENSITY STUDY 1+ [facility] AXIAL SK (08/24/2023 2:49 PM EST) Anatomical Region Laterality Modality Bone Densitometr y 07/27/2023 5:55 PM EST Narrative 08/24/2023 4:34 PM EST BONE DENSITY ? Lumbar Spine T-score is +2.6 ?? (SD relative to 20-29 y/o adult) Z-score is +5.0 ??(SD relative to age matched peers) This is normal by criteria defined by the WHO. Left Hip T-score is -0.6 Z-score is +1.5 This is normal by criteria defined by the WHO. Comparison exam(s): significant decrease in bone density of ??hip and lumbar spine when compared to most recent bone density examination ?? Confidence level is +/-95%. Impression: Based on the World Health Organization criteria, Yovana Mayfield should be classified as having normal bone density. The [facility] Department of Internal Medicine recommends using National Osteoporosis Foundation (NOF) guidelines in treatment decisions related to osteoporosis. NOF guidelines suggest considering treatment for postmenopausal women and men aged 50 or older presenting with the following: History of hip or vertebral fracture. T-score less than or equal to -2.5 (DXA) at the femoral neck, total hip, or spine, after appropriate evaluation to exclude secondary causes. Low bone mass (T-score between -1.0 and -2.5 at the femoral neck or spine) AND a 10-year probability of a hip fracture greater than or equal to 3% OR a 10-year probability of a major osteoporosis-related fracture greater than or equal to 20% based on the [place]-adapted WHO algorithm Please note that all treatment decisions require clinical judgment and consideration of individual patient factors, including patient preferences, co-morbidities, previous drug use, risk factors not captured in the FRAX model (e.g., frailty, falls, vitamin D deficiency, increased bone turnover, interval significant decline in bone density) and possible under- or over-estimation of fracture risk by FRAX. Procedure Note Lisa Pride MD - 03/28/2024 BONE DENSITY Lumbar Spine T-score is +2.6 (SD relative to 20-29 y/o adult) Z-score is +5.0 (SD relative to age matched peers) This is normal by criteria defined by the WHO. Left Hip T-score is -0.6 Z-score is +1.5 This is normal by criteria defined by the WHO. Comparison exam(s): significant decrease in bone density of hip andlumbar spine when compared to most recent bone density examination Confidence level is +/-95%. Impression: Based on the World Health Organization criteria, Yovana Mayfield should beclassified as having normal bone density. The [facility] Department of Internal Medicine recommendsusing National Osteoporosis Foundation (NOF) guidelines in treatmentdecisions related to osteoporosis. NOF guidelines suggest consideringtreatment for postmenopausal women and men aged 50 or older presentingwith the following: History of hip or vertebral fracture. T-score less than or equal to -2.5 (DXA) at the femoral neck, total hip,or spine, after appropriate evaluation to exclude secondary causes. Low bone mass (T-score between -1.0 and -2.5 at the femoral neck or spine)AND a 10-year probability of a hip fracture greater than or equal to 3% ORa 10-year probability of a major osteoporosis-related fracture greaterthan or equal to 20% based on the [place]-adapted WHO algorithm Please note that all treatment decisions require clinical judgment andconsideration of individual patient factors, including patientpreferences, co-morbidities, previous drug use, risk factors not capturedin the FRAX model (e.g., frailty, falls, vitamin D deficiency, increasedbone turnover, interval significant decline in bone density) and possibleunder- or over-estimation of fracture risk by FRAX. Lyn COOK IMRehan DXA PROCEDURES * Depression Screening (08/06/2023) [facility] Depression Screening Abstracted Historical Provider MD URMILA Owen * Hepatitis C Screening (04/20/2015) [facility] Hepatitis C Screening Abstracted Historical Provider MD URMILA Owen from Last 3 Months or Most Recently Relevant to Health Maintenance Care Teams Driller And Broacher Relationship Specialty Start Date End Date Berenice De La Cruz MD [address] [place] [id number] PCP - General Internal Medicine 07/27/23
--- OUTSIDE RECORDS SUMMARY | 2024-09-05 15:22 | XMS_ITS | Clinical Summary ---
Author Organization [facility] Address [address] [place] [address] Care Team Providers Care Fashion Intern Name Role Phone Ellie John MD Primary Care Provider [phone] Allergies Active Allergy Reactions Criticality Noted Date Comments Cefdinir 03/23/2020 Codeine 03/23/2020 Seasonal 03/23/2020 Medications Medication Sig Dispensed Refills Start Date End Date Status escitalopram (LEXAPRO) tablet 10 mg Take 5 mg by mouth daily. 0 Active hydroCHLOROthiazide (HYDRODIURIL) 50 MG tablet Take 50 mg by mouth daily. 0 Active levothyroxine (SYNTHROID) tablet 100 mcg Take 100 mcg by mouth every morning on an empty stomach. 0 Active POTASSIUM CHLORIDE PO Take by mouth. 0 Active OMEGA-3 FATTY ACIDS PO Take by mouth. 0 Active Apoaequorin 10 MG CAPS Take by mouth. 0 Active ergocalciferol (VITAMIN D2) capsule 51558 units Take 50,000 Units by mouth once a week. 0 Active conjugated estrogens (PREMARIN) vaginal cream Place vaginally daily. 0 Active cetirizine (ZyrTEC) 10 MG tablet Take 10 mg by mouth daily. 0 Active Clobetasol Prop Emollient Base 0.05 % emollient cream Apply topically 2 (two) times a day. 0 Active acetaminophen (TYLENOL) 325 MG tablet Take 650 mg by mouth every 6 (six) hours as needed for pain. 0 Active TURMERIC PO Take by mouth. 0 Active allopurinol (ZYLOPRIM) 100 MG tablet Take 100 mg by mouth daily. 0 Active Cholecalciferol (VITAMIN D3) 25 MCG (1000 UT) CAPS Take by mouth. 0 Active Multiple Vitamins-Minerals (WOMENS 50+ MULTI VITAMIN/MIN PO) Take by mouth. 0 Activ e losartan (COZAAR) 100 MG tablet Take 100 mg by mouth daily. 0 Active Active Problems No known active problems Social History Tobacco Use Types Packs/Day Years Used Date Smoking Tobacco: Former Smokeless Tobacco: Never Comments:quit more then 30 y ears ago Alcohol Use Standard Drinks/Week Comments No 0 (1 standard drink = 0.6 oz pur e alcohol) Sex and Gender Information Value Date Recorded Sex Assigned at Not on file Gender Identity Not on file Sexual Orientation Not on file Last Filed Vital Signs Vital Sign Reading Time Taken Comments Blood Pressure 172/95 09/16/2021 2:03 PM EST Pulse 65 09/16/2021 2:03 PM EST Temperature 36.9 ??C (98.4 ??F) 09/16/2021 2:03 PM ES T Respiratory Rate - - Oxygen Saturation 97% 09/16/2021 2:03 PM EST Inhaled Oxygen Concentration - - Weight 112.9 kg (249 lb) 09/16/2021 2:03 PM EST Height 157.5 cm (5' 2 ) 09/16/2021 2:03 PM EST Body Mass Index 45.54 09/16/2021 2:03 PM EST Plan of Treatment Health Maintenance Due Date Last Done Comments Hepatitis C Screening 1945 COVID-19 Vaccine (#1) 1945 Depression Screening 1959 Preventative Health Evaluation 1965 Shingrix-Zoster Vaccine (1 of 2) 1997 Fall Risk Assessment 2012 Osteoporosis Screening (DEXA Scan) 2012 DTap / Tdap / Td (2 - Td or Tdap) 03/21/2019 03/21/2009 RSV Adult > 60+ Yrs or (1 - 1-dose 75+ series) 2022 Influenza Vaccine (#1) 2024 , 05/15/2021, 05/09/2020, Additional history exists Pneumococcal Vaccine Completed 07/18/2016, 01/24/20 15 Hepatitis B Vaccines Aged Out No long er eligible based on patient's age to complete this topic RSV Ped < 20 months Aged Out No longe r eligible based on patient's age to complete this topic Care Teams Fashion Intern Relationship Specialty Start Date End Date Ellie John MD PCP - General Internal Medicine 09/16/21
== END 2024-09-05 11:22 | disposition home or self-care (01) ==
PROVIDERS: PCP Family Medicine; Visit Provider Internal Medicine Cardiovascular Disease
DX: I35.0 Nonrheumatic aortic (valve) stenosis (principal); I77.810 Thoracic aortic ectasia; H34.10 Central retinal artery occlusion, unspecified eye
CPT/HCPCS: 93010; 99214; G2211

== ENCOUNTER → 2024-09-05 10:37 | Outpatient (BNVA) | payer MEDICARE, OTHER, SELFPAY | PROVIDERS: PCP Family Medicine; Visit Provider Internal Medicine Cardiovascular Disease | DX: I35.0 Nonrheumatic aortic (valve) stenosis (principal); I77.810 Thoracic aortic ectasia; H34.10 Central retinal artery occlusion, unspecified eye | CPT/HCPCS: 93005; 99212 ==

== ENCOUNTER → 2025-04-12 13:53 | Outpatient (REF) | payer MEDICARE, OTHER, SELFPAY ==
--- OUTSIDE RECORDS SUMMARY | 2025-04-06 10:00 | XMS_ITS | Encounter Summary ---
Author Organization [facility] Address [address] [place] [address] Care Team Providers Care Stationary Engineer Apprentice Name Role Phone Berenice De La Cruz MD Primary Care Pr ovider Reason for Visit * Therapy (Routine) - Closed Specialty Diagnoses / Procedures Referred By Contac t Referred To Contact Pulmonology Diagnoses History of pneumothorax Dyspnea on exertion Wheezing Procedures Pulmonary function testing: Spirometry with Bronchodilator, Spirometry Beernice De La Cruz MD [address] [place] [phone] Phone: tel: fax: [facility] [address] [place] [address] Phone: tel: Referral ID Status Reason Start Date Expiration Date Visits Re quested Visits Authorized [id number] Closed 02/01/2025 02/01/2026 1 1 Encounter Details Date Type Department Care Team (Latest Contact Info) Description 04/06/2025 10:00 AM EDT - 04/06/2025 11:59 PM EDT Hospital Encounter [facility] [address] [place] [address] Discharge Disposition: Home or Self Care Social History Tobacco Use Types Packs/Day Years [...] care for your loved ones. For example, child center assistant or elderly care for an older adult? [...] What is your living situation? 1 09/27/2023 Comments No Sex and Gender Information Value Date Recorded Sex Assigned at Not on file Legal Sex Female 5:28 PM EST Gender Identity Not on file Sexual Orientation Not on file documented as of this encounter Medications at Time of Discharge albuterol HFA (PROAIR HFA ; PROVENTIL HFA ; VENTOLIN HFA) 90 mcg/actuation inhalerIndications:D yspnea on exertion,Wheezing Inhale 2 puffs by mouth every 6 (six) hours if needed for wheezing or shortness of breath. 6.7 g 1 02/01/2025 5 amLODIPine (NORVASC) 5 mg tablet Take 1 tablet (5 mg total) by mouth 1 (one) time each day. 01/18/2025 aspirin 81 mg EC tablet Take 1 Tablet by mouth daily. cetirizine (ZyrTEC) 10 mg tablet escitalopram (LEXAPRO) 10 mg tabletIndications:An xiety Take 1 tablet (10 mg total) by mouth 1 (one) time each day. 90 each 1 01/18/2025 5 furosemide (LASIX) 20 mg tablet TAKE 1 TABLET BY MOUTH EVERY DAY 90 tablet 1 03/17/2025 gabapentin (NEURONTIN) 300 mg capsule Take 1 capsule (300 mg total) by mouth 2 (two) times a day. 180 capsule 1 03/30/2025 hydroxychloroquine (PLAQUENIL) 200 mg tablet Take 1 Tablet by mouth daily. 08/26/2023 hydrOXYzine HCL (ATARAX) 10 mg tabletIndications:Tr ouble in sleeping Take 1-2 tablets (10-20 mg total) by mouth at bedtime as needed for anxiety (sleep). 28 tablet 03/30/2025 levothyroxine (SYNTHROID, LEVOTHROID) 100 mcg tabletIndications:Ac quired hypothyroidism Take 1 tablet (100 mcg total) by mouth 1 (one) time each day before breakfast. 90 each 1 01/18/2025 5 hjlgtn-pdyhymax-ngew ase (Creon) 36,000-114,000- 180,000 unit capsule,delayed release(DR/EC) TAKE 2 CAPS BY MOUTH THREE TIMES A DAY WITH MEALS AND 1 CAP ONE TO TWO TIMES A DAY WITH SNACKS losartan (Cozaar) 25 mg tablet Take 1 tablet (25 mg total) by mouth 1 (one) time each day. 90 tablet 1 03/30/2025 magnesium oxide (MAG-OX) 400 mg (241.3 elemental magnesium) tablet Take 2 tablets (800 mg total) by mouth daily. 11/17/2024 meclizine (ANTIVERT) 25 mg tablet potassium chloride 20 mEq tablet extended release TAKE 1 TABLET BY MOUTH 1 TIME EACH DAY. 90 tablet 1 03/20/2025 predniSONE (DELTASONE) 10 mg tablet Take 1 tablet (10 mg total) by mouth 1 (one) time each day. 03/28/2025 semaglutide (Wegovy) 0.25 mg/0.5 mL injection penIndications:Morbi d obesity with BMI of 40.0-44.9, adult (CMS/HCC V24, CMS/HCC V28) Inject 0.25 mg under the skin every 7 (seven) days. 6 mL 08/20/2024 documented as of this encounter Discharge Disposition Disposition Code Departure Means Destination Home or Self Care documented in this encounter Plan of Treatment Upcoming Encounters Date Type Department Care Team (Late st Contact Info) Description 04/18/2025 2:30 PM EDT [facility] [address] [place] [phone] Pat Ramírez MD [address] [place] [address] 06/15/2025 2:30 PM EST Consult Bariatric Surgery [facility] [address] [facility] [address] [place] [phone] Sage Dwyer MD [address] [place], [place] 06/29/2025 2:00 PM EST Office Visit Adult Medicine [address] [phone] Berenice De La Cruz MD [address] [place] [address] documented as of this encounter Procedures Procedure Name Priority Date/Time Associated Diagnosis Comments HC SPIROMETRY BRONCHODILATION RESPONSIVENESS PRE/POST BRONCHODILATOR ADMINISTRATION Routine 04/06/2025 11:34 AM EDT History of pneumothorax Dyspnea on exertion Wheezing documented in this encounter Visit Diagnoses Not on filedocumented in this encounter Administered Medications Inactive Administered Medications - up to 3 most recent administrations Medication Order MAR Action Action Date Dose Rate Site albuterol 2.5 mg /3 mL (0.083 %) nebulizer solution 2.5 mg 2.5 mg, nebulization, Once, On Zarina 04/06/25 at 1030, For 1 dose Given 04/06/2025 10:31 AM EDT 2.5 mg documented in this encounter Orders Medications Ordered That Ander ht Not Have Been Administered Count Last Ordered Date First Ordered Date albuterol 2.5 mg /3 mL (0.08 3 %) nebulizer solution 2.5 mg 1 04/06/2025 documented in this encounter Additional Health Concerns Assessment Noted Time PHQ-9 Depression Total Score: 0 01/18/20 25 7:30 PM EDT A fall risk assessment has been complete d for the patient 07/28/2024 9:20 AM EST documented as of this encounter Care Teams Stationary Engineer Apprentice Relationship Specialty Start Date End Date Berenice De La Cruz MD [address] [place] [address] PCP - General Internal Medicine 07/27/23 documented as of this encounter
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
--- OUTSIDE RECORDS SUMMARY | 2025-04-07 10:15 | XMS_ITS | Encounter Summary ---
Author Organization [facility] Address [address] [place] [address] Care Team Providers Care Construction Plumber Name Role Phone Berenice De La Cruz MD Primary Care Pr ovider Encounter Details Date Type Department Care Team (Latest Contact Info) Description 04/07/2025 10:15 AM EDT Clinical Support Pulmon[address] [place] [address] Dyspnea on exertion Social History Tobacco Use Types Packs/Day Years [...] care for your loved ones. For example, childcare teacher or elderly care for an older adult? [...] on file documented as of this encounter Progress Notes * Matt Gil - 04/07/2025 10:15 AM EDT Comments: Patient walked six minutes walker assist covering (152m/500ft) without Leg Fatigue, Mild to Moderate SOB was noted. Lowest oxygen saturation was 93%. Patient returned to PFT lab for Rest & Recovery. After 1 minute RA SpO2 = 98% HR = 78; After 2 min RA SpO2 = 98% HR = 55. No indicationfor supplemental Oxygen for today's Activity. documented in this encounter Plan of Treatment Upcoming Encounters Date Type Department Care Team (Late st Contact Info) Description 04/18/2025 2:30 PM EDT Office Visit Pulmonolgy - [place] [address] [facility] [address] [place] [phone] Pat Ramírez MD [address] [place] [phone] 06/15/2025 2:30 PM EST Consult Bariatric Surgery - [place] 175 [facility] [address] [place] [phone] Sage Dwyer MD [address] [place] [address] 06/29/2025 2:00 PM EST Office Visit Adult Medicine [facility] [address] [place], [place] [phone] Berenice De La Cruz MD [address] [place], [place] documented as of this encounter Procedures Procedure Name Priority Date/Time Associated Diagnosis Comments SIX MINUTE WALK TEST Routine 04/07/2025 9:59 AM EDT Dyspnea on exertion documented in this encounter Results * 6 minute walk test (04/07/2025 9:59 [...] documented in this encounter Visit Diagnoses Diagnosis Dyspnea on exertion Other dyspnea and respiratory abnormality documented in this encounter Additional Health Concerns Assessment Noted Time PHQ-9 Depression Total Score: 0 01/18/20 25 7:30 PM EDT A fall risk assessment has been complete d for the patient 07/28/2024 9:20 AM EST documented as of this encounter Care Teams Construction Plumber Relationship Specialty Start Date End Date Berenice De La Cruz MD [address] [place] [phone] PCP - General Internal Medicine 07/27/23 documented as of this encounter
--- OUTSIDE RECORDS SUMMARY | 2025-04-11 09:44 | XMS_ITS | Encounter Summary ---
Author Organization [facility] Address [address] [place] [address] Care Team Providers Care Customer Accounts Advisor Name Role Phone Berenice De La Cruz MD Primary Care Pr ovid Reason for Referral * Imaging (Routine) - Authorized Specialty Diagnoses / Procedures Referred By Contac t Referred To Contact Radiology Diagnoses Adrenal nodule (CMS/HCC V24) Procedures CT Abdomen wo and w Contrast Faye Lopez PA [address] [place] [address] Phone: tel: fax: CT Scan - [address] Phone: tel: fax: Referral ID Status Reason Start Date Expiration Date V isits Requested Visits Authorized [id number] Authorized 03/30/2025 03/30/2026 1 1 Reason for Visit * Imaging (Routine) - Authorized Specialty Diagnoses / Procedures Referred By Contac t Referred To Contact Radiology Diagnoses Adrenal nodule (CMS/HCC V24) Procedures CT Abdomen wo and w Contrast Faye Lopez PA [address] [place] [address] Phone: tel: fax: CT Scan - [place] [address] [place], [place] Phone: tel: fax: Referral ID Status Reason Start Date Expiration Date V isits Requested Visits Authorized [id number] Authorized 03/30/2025 03/30/2026 1 1 Encounter Details Date Type Department Care Team (Latest Contact Info) Description 04/11/2025 9:44 AM EDT - 04/11/2025 11:59 PM EDT Hospital Encounter CT Scan - [place] [address] [place], [place] [phone] Adrenal nodule (CMS/HCC V24) Discharge Disposition: Home or Self Care Social [...] for your loved ones. For example, children's service supervisor or elderly care for an older adult? [...] shortness of breath. 6.7 g 1 02/01/2025 amLODIPine (NORVASC) 5 mg tablet Take 1 [...] needed for anxiety (sleep). 28 tablet 03/30/2025 ipratropium-albutero L (Combivent Respimat) 20-100 mcg/actuation inhalerIndications:C hronic obstructive pulmonary disease, unspecified COPD type (CMS/HCC V24, CMS/HCC V28) Inhale 1 puff by mouth 4 (four) times a day. 1 each 04/07/2025 6 levothyroxine (SYNTHROID, LEVOTHROID) 100 mcg tabletIndications:Ac quired hypothyroidism Take 1 tablet (100 mcg total) by mouth 1 (one) time each day before breakfast. 90 each 1 01/18/2025 5 rjyowr-fzxmqmua-xzpn ase (Creon) 36,000-114,000- 180,000 unit capsule,delayed release(DR/EC) [...] d obesity with BMI of 40.0-44.9, adult ([facility] V24, [facility] V28) Inject 0.25 mg under the skin every 7 (seven) days. 6 mL 08/20/2024 documented as of this encounter Discharge Disposition Disposition Code Departure Means Destination Home or Self Care documented in this encounter Plan of Treatment Upcoming Encounters Date Type Department Care Team (Late st Contact Info) Description 04/18/2025 2:30 PM EDT Office Visit Pulmonolgy - [place] 175 [facility] [address] [place] [phone] Pat Ramírez MD [address] [place], [place] 06/15/2025 2:30 PM EST Consult Bariatric Surgery - [place] 175 [facility] [address] [place] [phone] Sage Dwyer MD [address] [place], [place] 06/29/2025 2:00 PM EST Office Visit Adult Medicine [facility] [address] [place] [address] Berenice De La Cruz MD [address] [place] [address] documented as of this encounter Procedures Procedure Name Priority Date/Time Associated Diagnosis Comments CT ABDOMEN WO AND W CONTRAST Routine 04/11/2025 9:56 AM EDT Adrenal nodule ([facility] V24) documented in this encounter Results * CT Abdomen wo and w Contrast (04/11/2025 9:56 AM EDT) Anatomical Region Laterality Modality Body Computed Tomogra phy 04/11/2025 11:1 8 AM EDT Impressions 04/11/2025 11:43 AM EDT 1. Bilateral lipid rich adenomas. No further follow-up is necessary 2. Large groundglass nodules within the right lower lobe which likely represent infection/inflammation. Please see dedicated CT chest for further evaluation -------- FINAL REPORT -------- Dictated By: Yanelis Archuleta Dictated Date: 04/11/2025 11:18 ET Assigned Physician: Yanelis Archuleta Reviewed and Electronically Signed By: Yanelis Archuleta Signed Date: 04/11/2025 11:43 ET Workstation ID: [id number] Transcribed By: Self Edit Transcribed Date: 04/11/2025 11:18 ET Narrative 04/11/2025 11:[address] ABDOMEN WITH AND WITHOUT INTRAVENOUS CONTRAST HISTORY: bilateral adrenal nodules CT abdomen/pelvis 03/20/25 ([facility]). TECHNIQUE: Multiple contiguous axial images of the abdomen were obtained with and without the use 100 of Isovue 370 intravenous contrast. Images were reformatted to coronal and sagittal planes. Radiation dosage is 65.58mgy COMPARISON: CT abdomen from 04/21/[address] chest from 03/20/2025 FINDINGS: Lung bases: Groundglass nodule within the right lower lobe measuring 3.9 x 3.2 cm (series 2, image 6). Mediastinum: The cardiac apex is normal in size, trace pericardial effusion. Upper GI: The liver, pancreas and spleen are grossly within normal limits. There is trace intrahepatic biliary dilatation. The common bile duct measures 1.1 cm. The patient is status post cholecystectomy. Small hiatal hernia. : A right adrenal nodule measures 1.8 x 1.3 cm and the left adrenal nodule measures 1.7 x 1.5 cm. Both nodules measure less than 10 Hounsfield units on noncontrast images and consistent with lipid rich adenomas. Both nodules also demonstrate absolute washout of 60% or higher. The kidneys perfuse in an adequate fashion. There are too small to characterize hypodensities within both kidneys. No hydronephrosis. Lower GI: The visualized bowel is without obstruction or inflammation and there is no free fluid or free air within the peritoneal cavity. There are no pathologically enlarged lymph nodes in the abdomen. Vascular: Moderate atherosclerotic calcification of the abdominal aorta. MSK: Small fat-containing ventral hernias. Chronic right rib fractures posteriorly. Moderate degenerative changes of the thoracic spine Procedure Note Yanelis Archuleta MD - 04/11/2025 CT ABDOMEN WITH AND WITHOUT INTRAVENOUS CONTRAST HISTORY: bilateral adrenal nodules CT abdomen/pelvis 03/20/25 ([facility]). TECHNIQUE: Multiple contiguous axial images of the abdomen were obtainedwith and without the use 100 of Isovue 370 intravenous contrast. Imageswere reformatted to coronal and sagittal planes. Radiation dosage is65.58mgy COMPARISON: CT abdomen from 04/21/[address] chest from 03/20/2025 FINDINGS: Lung bases: Groundglass nodule within the right lower lobe measuring 3.9 x3.2 cm (series 2, image 6). Mediastinum: The cardiac apex is normal in size, trace pericardialeffusion. Upper GI: The liver, pancreas and spleen are grossly within normal limits.There is trace intrahepatic biliary dilatation. The common bile ductmeasures 1.1 cm. The patient is status post cholecystectomy. Small hiatalhernia. : A right adrenal nodule measures 1.8 x 1.3 cm and the left adrenalnodule measures 1.7 x 1.5 cm. Both nodules measure less than 10 Hounsfieldunits on noncontrast images and consistent with lipid rich adenomas. Bothnodules also demonstrate absolute washout of 60% or higher. The kidneysperfuse in an adequate fashion. There are too small to characterizehypodensities within both kidneys. No hydronephrosis. Lower GI: The visualized bowel is without obstruction or inflammation andthere is no free fluid or free air within the peritoneal cavity. Thereare no pathologically enlarged lymph nodes in the abdomen. Vascular: Moderate atherosclerotic calcification of the abdominal aorta. MSK: Small fat-containing ventral hernias. Chronic right rib fracturesposteriorly. Moderate degenerative changes of the thoracic spine IMPRESSION: 1. Bilateral lipid rich adenomas. No further follow-up is necessary 2. Large groundglass nodules within the right lower lobe which likelyrepresent infection/inflammation. Please see dedicated CT chest forfurther evaluation -------- FINAL REPORT -------- Dictated By: Yanelis Arhculeta Dictated Date: 04/11/2025 11:18 ET Assigned Physician: Yanelis Archuleta Reviewed and Electronically Signed By: Yanelis Archuleta Signed Date: 04/11/2025 11:43 ET Workstation ID: [id number] Transcribed By: Self Edit Transcribed Date: 04/11/2025 11:18 ET us Faye COOK IMRehan CT PROCEDURES Final Resul t documented in this encounter Visit Diagnoses Diagnosis Adrenal nodule (CMS/HCC V24) Benign neoplasm of adrenal gland documented in this encounter Administered Medications Inactive Administered Medications - up to 3 most recent administrations Medication Order MAR Action Action Date Dose Rate Site iopamidoL (ISOVUE-370) 370 mg iodine /mL (76 %) injection 100 mL 100 mL, intravenous, Once in imaging, Starting on 04/11/25 at 0955, For 1 dose Given 04/11/2025 9:59 AM EDT 100 mL sodium chloride 0.9 % flush 10 mL 10 mL, intravenous, Once, On 04/11/25 at 1015, For 1 dose Given 04/11/2025 9:56 AM EDT 10 mL documented in this encounter Additional Health Concerns Assessment Noted Time PHQ-9 Depression Total Score: 0 01/18/20 25 7:30 PM EDT A fall risk assessment has been complete d for the patient 07/28/2024 9:20 AM EST documented as of this encounter Care Teams Customer Accounts Advisor Relationship Specialty Start Date End Date Berenice De La Cruz MD [address] [place] [phone] PCP - General Internal Medicine 07/27/23 documented as of this encounter
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
--- NOTE | 2025-04-12 13:56 | CA_ITS ---
Transthoracic Echocardiogram Patient (Last, First, Middle): Yovana Mayfield A Gender: F Date of : 1945 Age: 79 Procedure Date: 04/12/2025 Procedure Type: Transthoracic Echocardiogram Location: OP Height: 162.56 cm Weight: 113.85 kg BSA: 2.15 m2 Heart Rate: bpm BP: 126 / 66 mmHg Carbon Brushes Assembler: TO/RC Referring MD: Pat Ramírez MD Activity Aide: Vasyl Sung MD Symptoms: D0E R06.09 V89.2XXS Study Quality: Fair/Contrast ECG Rhythm: Sinus Conclusions: - 1. Normal LV ejection fraction of 65-70% with impaired relaxation filling pattern 2. Mild aortic stenosis 3. Normal RV systolic pressure 4. No gross pericardial effusion Findings Procedure Information Contrast agent, definity, is being given per protocol without apparent complications. Left Ventricle Normal left ventricular size, thickness, and systolic function. The visually estimated ejection fraction is between 65-70%. Spectral Doppler is indicative of an impaired relaxation filling pattern. E/E prime ratio is <8, consistent with normal filling pressures. Evidence suggests grade I (mild) diastolic dysfunction. Right Ventricle Normal right ventricular cavity size and systolic function. Atria Both atria are normal in size. Interatrial shunt cannot be excluded. Aortic Valve The aortic valve was not well visualized. There is mild calcification of the aortic valve. There is mild aortic valve stenosis. The peak aortic gradient is 25 mmHg.The mean gradient is 15 mmHg. The aortic valve area is 1.50 cm2. There is no aortic valve regurgitation. Mitral Valve Normal mitral valve structure and function. There is no mitral valve regurgitation. There is no mitral valve stenosis. Pulmonic Valve The pulmonic valve is likely normal. Tricuspid Valve Likely normal tricuspid valve structure and function. There is trace tricuspid valve regurgitation. The right ventricular systolic pressure is normal. The right ventricular systolic pressure is 27 mmHg. Normal right atrial pressure. There is no evidence of pulmonary hypertension. Great Vessels The pulmonary artery was not well visualized. There is no dilatation of the ascending aorta measuring 3.30 cm. Small plaque is seen in the sino tubular ridge. Venous The inferior vena cava is normal in size and collapses greater than 50% with inspiration. Pericardium/Pleural There is no evidence of pericardial effusion. Measurements 2D Linear Measurements IVSd: 1.09 0.6-0.9/0.6-1.0 cm LVIDd: 4.20 3.9-5.3/4.2-5.9 cm LVIDd Index: 1.95 2.4-3.2/2.2-3.1 cm/m2 LVIDs: 2.69 2.0-3.6 cm LVPWd: 0.90 0.7-1.1 cm LA Diam: 3.80 2.7-3.8/3.0-4.0 cm LAIDs Index: 1.77 1.5-2.3 cm/m2 LV Mass: 169.73 67-162/88-224 g LV Mass Index: 78.95 43-95/49-115 g/m2 LVOT Diam: 2.10 3.0+(-)1.3 cm 2D Systolic Function EF 4C: 65.40 >55% EF 2C: 72.70 >55% EF BiP: 68.10 >55% Mitral Valve MV Pk E: 0.65 MV PK A: 1.07 MV Decel Time: 267.00 E/A: 0.60 E'Lateral: 6.85 E'Medial: 5.11 E/E' Med: 12.60 E/E' Lat: 9.40 PHT: 78.00 MVA PHT: 2.82 Decel Lyon: 2.42 Aortic Valve AoV Pk Cooper: 2.51 AoV Mn Cooper: 1.86 AoV VTI: 0.50 AoV Pk Grad: 25.00 Aov Mn Grad: 15.00 CARA Cont.VTI: 1.50 LVOT LVOT Pk Cooper: 1.12 LVOT Mn Cooper: 0.83 LVOT VTI: 0.22 LVOT Pk Grad: 5.00 LVOT Mn Grad: 3.00 LVOT Diam: 2.10 LVOT Area: 3.46 Diastolic Function MV Pk E: 0.65 MV Pk A: 1.07 E/A: 0.60 E'Medial: 5.11 E/E' Med: 12.60 E' Laterial: 6.85 E/E' Lat: 9.40 Right Ventricle TAPSE (mm): 23.00 TVS' Cooper: 17.00 Tricuspid Valve TR Pk Cooper: 2.47 TR Pk Grad: 24.00 RA Press: 3.00 RVSP: 27.00 Great Vessels Aorta Sinus of Valsalva: 2.90 2.0-3.5 cm Ao Asc: 3.30 2.1-3.4 cm Pulmonary Valve PV Pk Cooper: 1.27 Peak PV Grad: 6.00 Updated in Other Vendor System with Status of Final Vasyl Sung MD electronically signed on 04/13/2025 12:35:42 PM with status of Final
--- OUTSIDE RECORDS SUMMARY | 2025-04-12 16:03 | XMS_ITS | Patient Health Record ---
Author Organization [facility] Address [address] [place] [address] Care Team Providers Care Wood Machine Carver Name Role Phone Ellie John Primary Care Provider Jose A Wang Unavailable [phone] Allergies Allergen (clinical drug ingredient) Drug/Non Drug [...] 50 MG 1 tablet Orally Once a day; Duration: 30 day(s) Active Loratadine 10 MG 1 tablet Orally Once a day; Duration: 30 day(s) Active Multivitamin complete Active Escitalopram Oxalate 10 MG 1 tablet Orally Once a day; Duration: 30 day(s) Active Furosemide 20 MG 1 tablet Orally Once a day; Duration: 30 day(s) Active Curcumin 95 tumeric supplement 1000 mg Active hydroCHLOROthiazide 25 MG 1 tablet Orall y Once a day Unknown Allopurinol 10 mg Active Vitamin D3 25 MCG (1000 UT) 1 capsule Orally Once a day; Duration: 30 day(s) Active Durham 3 1000 MG 1 capsule Orally Once a day; Duration: 30 day(s) Active TruBiotics Active Potassium Chloride 20 MEQ 1 packet with food Orally Once a day; Duration: 30 day(s) Active Immunizations Vaccine Route Administration [...] Problem Acquired hammer toe of right foot (7349183679353 105) Other hammer toe(s) (acquired), right foot (M20.41) Active confirmed Problem Acquired hammer toe of left foot (2764410652898 103) Other hammer toe(s) (acquired), left foot [...] Medicare [employer] [address] [facility] [place] [address] [id number] Yovana Mayfield Self - patient is the insured [facility] [address] [place] [address] [phone] [id number] Yovana Mayfield Self - patient is [...]
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
--- OUTSIDE RECORDS SUMMARY | 2025-04-12 16:03 | XMS_ITS | Encounter Summary ---
Author Organization [facility] Address [address] [place] [address] Care Team Providers Care Patient Transport Orderly Name Role Phone Berenice De La Cruz MD Primary Care Pr ovider Reason for Visit * Reason Onset Date Comments Appointment 04/07/2025 Echocardiogram & ct scan of chest no contrast Encounter Details Date Type Department Care Team (Late st Contact Info) Description 04/07/[address] [place] [address] Chadwick Pike [facility], [place] Social History Tobacco Use Types Packs/Day Years [...] care for your loved ones. For example, early childhood education specialist or elderly care for an older adult? [...] as of this encounter Progress Notes * Arpita Ca MA - 04/12/2025 9:33 AM EDT Confirmation received * Eli Pike MA - 04/11/2025 12:40 PM EDT Order refaxed * Sj Hurt - 04/11/2025 10:57 AM EDT Hospital call requesting the referral as they never received it - can this be resend DAVID - as patient is apt is tomorrow. * Eli Pike MA - 04/07/2025 9:42 AM EDT Urgent echocardiogram schedule Date: April 11, 2025 Time: 2 pm Location: [facility] [address] [place] [address], [address] Floor, [place] [address] referral notes faxed to cardiology at [phone]-scan of chest no contrast Date: April 14, 2025 Time: 9 am Location: [address] [phone] documented in this encounter Plan of Treatment Upcoming Encounters Date Type Department Care Team (Late st Contact Info) Description 04/18/2025 2:30 PM EDT Office Visit Pulmonolgy - [place] [address] [facility] [address] [place] [phone] Pat Ramírez MD [address] [place] [address] 06/15/2025 2:30 PM EST Consult Bariatric Surgery - [place] [address] [facility] [address] [place] [phone] Sage Dwyer MD [address] [place], [place] 06/29/2025 2:00 PM EST Office Visit Adult Medicine [facility] [address] [place] [phone] Berenice De La Cruz MD [address] [place] [phone] documented as of this encounter Visit Diagnoses Not on filedocumented in this encounter Additional Health Concerns Assessment Noted Time PHQ-9 Depression Total Score: 0 01/18/20 25 7:30 PM EDT A fall risk assessment has been complete d for the patient 07/28/2024 9:20 AM EST documented as of this encounter Care Teams Patient Transport Orderly Relationship Specialty Start Date End Date Berenice De La Cruz MD [address] [place] [phone] PCP - General Internal Medicine 07/27/23 documented as of this encounter
--- OUTSIDE RECORDS SUMMARY | 2025-04-12 16:03 | XMS_ITS | Clinical Summary ---
Author Organization [facility] Address [address] [place] [phone] Phone Care Team Providers Care Quality Control Lab Technician Name Role Phone Berenice D eLa Cruz MD Primary Care Pr ovider Encounters Date Type Department Care Team Description 03/14/2025 8:00 AM EDT Office Visit [address] [address] Micheal Herrera MD Mitchell, Ian, PT Abnormal gait (Primary Dx) 03/06/2025 1:45 PM EDT Office Visit [address] [address] Micheal Herrera MD Mitchell, Ian, PT Abnormal gait (Primary Dx); Chronic left shoulder pain 03/02/2025 9:30 AM EDT Office Visit [address] [address] Micheal Herrera MD Mitchell, Ian, PT Chronic left shoulder pain (Primary Dx); Abnormal gait 02/28/2025 2:15 PM EDT Office Visit [address] [address] Micheal Herrera MD Mitchell, Ian, PT Chronic left shoulder pain (Primary Dx); Abnormal gait 02/28/2025 Plan of Care Documentation [address] [address] 02/24/2025 3:00 PM EDT Office Visit [address] [address] Micheal Herrera MD Mitchell, Montez, PT Chronic left shoulder pain (Primary Dx); Abnormal gait 02/09/2025 Transcribe Orders [facility] [address] [place] [address] Anali Cardenas 02/09/2025 Transcribe Orders [facility] [address] [place] [address] Anali Cardenas Encounter for rehabilitation (Primary Dx) from Last 3 Months Social History Tobacco Use Types Packs/Day Years Used Date Smoking Tobacco: Never Assessed Education Answer Date Recorded Are you interested in more education? Not on hilda e 02/22/2025 Are you concerned about learning? Not on file 02/22/2025 No 02/22/2025 No 02/22/2025 Digital Access Answer Date Recorded No 02/22/2025 No 02/22/2025 Reliable internet access at home? Not on file 02/22/2025 Device with a working camera? Not on file Comments Unknown Sex and Gender Information Value Date Recorded Sex Assigned at Not on file Legal Sex Female 6:57 PM EST Gender Identity Not on file Sexual Orientation Not on file Plan of Treatment Health Maintenance Due Date Last Done Comments Adult Td,Tdap Booster 1947 DEPRESSION SCREENING 1959 SMOKING Hx and SMOKELESS TOB ACCO SCREENING 1960 HEPATITIS C SCREENING 1965 PNEUMOCOCCAL VACCINES (50+ y ears) (1 of 1 - PCV) 1997 ZOSTER VACCINES (1 of 2) 1997 OSTEOPOROSIS SCREENING INITI AL (ONE-TIME) 2012 RSV VACCINE (1 - 1-dose 75+ series) 2022 INFLUENZA VACCINE (#1) 2025 COVID-19 VACCINE ( - 2023-2 5 season) 2025 LIPID PANEL 07/28/2029 07/28/2024 HEPATITIS A VACCINES Aged Out No long er eligible based on patient's age to complete this topic HIB VACCINES Aged Out No longer eligi ble based on patient's age to complete this topic MENINGOCOCCAL VACCINES (ACWY) Aged Out No longer eligible based on patient's age to complete this topic MENINGOCOCCAL VACCINES (B) Aged Out N o longer eligible based on patient's age to complete this topic Medical Devices Not on file Insurance MEDICARE PART A & B Unified MEDICARE SUPPLEMENT MEDICARE PART A & B Unified MEDICARE SUPPLEMENT MEDICARE PART A & B [facility] MEDICARE PART A & B [facility] MEDICARE PART A & B Member Subscriber Plan / Payer ( fective 2012-Present) Name:Yovana Mayfield Member ID:[id number] Relation to Subscriber:Self Name:Yovana Mayfield Subscriber ID:[id number] Payer ID:[id number] Group ID:Not on file Type:Medicare Address: [employer] [address] [place] [phone] [id number] MEDICARE PART A & B [facility] MEDICARE SUPPLEMENT Care Teams Quality Control Lab Technician Relationship Specialty Start Date End Date Berenice De La Cruz MD [address] [place] [phone] PCP - General Family Medicine 02/22/25 Additional Source Comments The information contained in this document represents components of the legal health record. It is not the complete legal health record.[facility]
--- OUTSIDE RECORDS SUMMARY | 2025-04-12 16:03 | XMS_ITS ---
Author Name [facility] Organization Unknown Care Team Organization Name Specialty Phone Email Start Date End [facility] 03/29/2025 [place] [facility] 06/17/2022
--- OUTSIDE RECORDS SUMMARY | 2025-04-12 16:03 | XMS_ITS | Clinical Summary ---
Author Organization [facility] Address [address] [place] [address] Care Team Providers Care Production Packager Name Role Phone Ellie John MD Primary Care Provider [phone] Allergies Active Allergy Reactions Criticality Noted Date [...] mouth. 0 Active ergocalciferol (VITAMIN D2) capsule 23354 units Take 50,000 Units by mouth once [...] 67 09/16/2021 2:03 PM EST Temperature 36.9 C (98.4 F) 09/16/2021 2:03 PM EST Respiratory Rate - - Oxygen Saturation 97% [...] 1-dose 75+ series) 2022 Influenza Vaccine (#1) 2025 , 05/15/2021, 05/09/2020, Additional history exists Pneumococcal Vaccine Completed 07/18/2016, 01/24/20 15 Hepatitis B Vaccines Aged Out No long er eligible based on patient's age to complete this topic RSV Ped < 20 months Aged Out No longe r eligible based on patient's age to complete this topic Care Teams Production Packager Relationship Specialty Start Date End Date Ellie John MD PCP - General Internal Medicine 09/16/21
== END ==
LOC: HO.CARD 13:53
PROVIDERS: Visit Provider Internal Medicine
DX: R06.09 Other forms of dyspnea (principal)
CPT/HCPCS: 93306; Q9957

== ENCOUNTER → 2025-04-12 13:56 | Outpatient (BNV) | payer MEDICARE, OTHER, SELFPAY | PROVIDERS: Visit Provider Internal Medicine Cardiovascular Disease | DX: I35.0 Nonrheumatic aortic (valve) stenosis (principal); I51.89 Other ill-defined heart diseases; V89.2XXS Person injured in unspecified motor-vehicle accident, traffic, sequela; Z04.3 Encounter for examination and observation following other accident | CPT/HCPCS: 93306 ==

== ENCOUNTER 2025-07-27 18:20 | Outpatient (REF) | payer MEDICARE, OTHER, SELFPAY ==
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
--- OUTSIDE RECORDS SUMMARY | 2025-07-25 10:30 | XMS_ITS | Encounter Summary ---
Author Organization [facility] Address [address] [place] [address] Care Team Providers Care Remote Advisor Name Role Phone Berenice De La Cruz MD Primary Care Pr ovider Encounter Details Date Type Department Care Team (Late st Contact Info) Description 07/25/2025 10:30 AM EST Lab Draw Station - [address] [place] [address] Arrived Social History Tobacco Use Types Packs/Day Years [...] for your loved ones. For example, child guidance counselor or elderly care for an older adult? [...] on file documented as of this encounter Plan of Treatment Upcoming Encounters Date Type Department Care Team (Late st Contact Info) Description 12/05/2025 2:00 PM EDT Office Visit Bariatric Surgery - [address] [place] [address] Sage Dwyer MD [facility] [place] [phone] 02/06/2026 9:30 AM EDT Office Visit Pulmonology - [place] [address] [address] [place] [address] Pat Ramírez MD [address] [place] [phone] documented as of this encounter Visit Diagnoses Not on filedocumented in this encounter Additional Health Concerns Assessment Noted Time PHQ-9 Depression Total Score: 0 06/29/20 25 1:57 PM EST A fall risk assessment has been complete d for the patient 07/28/2024 9:20 AM EST documented as of this encounter Care Teams Remote Advisor Relationship Specialty Start Date End Date Berenice De La Cruz MD [address] [place] [phone] PCP - General Internal Medicine 07/27/23 documented as of this encounter
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
--- NOTE | ~2025-07-27 | MR_ITS ---
EXAMINATION: MR THORACIC SPINE WITHOUT CONTRAST CLINICAL INFORMATION: M 54.6. Pain in the thoracic spine. COMPARISON: None available. TECHNIQUE: MRI of the thoracic spine was obtained using routine sequences without contrast. FINDINGS: S-shaped curvature of the thoracolumbar spine. No bone marrow STIR signal abnormality. Multilevel marginal osteophyte formation and disc desiccation throughout the axial skeleton from C4 to L2. 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 Grade 1 retrolisthesis at T12-L1, L1-2. Grade 1 anterolisthesis C5-6, C6-7 and C7-T1. Bone marrow inhomogeneity throughout the axial skeleton. The thoracic spinal cord caliber and signal are normal. No cord compression from T1 to T12. Conus medullaris ends at pedicle of L1. No prevertebral compartment hematoma, mass or fluid collection. 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 Scoliosis, thoracolumbar spine. 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 Grade 1 retrolisthesis, T12-L1 and L1-2 likely degenerative. Grade 1 anterolisthesis C5-6, C6-7 and C7-T1, likely degenerative. Electronically signed by: Ronny Blair MD 07/28/2025 06:13 AM MARILEE
--- OUTSIDE RECORDS SUMMARY | 2025-07-27 19:56 | XMS_ITS | Data Portability ---
Author Organization [place] - [facility], Allergy Address [address] [address] Assessment Encounter Date Assessment Date Assessment LastModified by Organization Details LastModified Time 04/01/2024 04/01/2024 Asymmetric HL..Hx of numbness after COVID vaccine 2 years ago fadi Not available 04/01/2024 09:21:45 06/07/2024 06/07/2024 Patient here to discuss amplification as a first time user. She has [employer] which provides $1700 per ear.. She understands [...] our policies with her. Elsa Gaytan MA [facility] william Not available 06/07/2024 12:19:52 Plan of Treatment Reminders Order Date Submit Date Provider Last Modified By Organization Details Last Modified Time Details Appointments None recorded. Lab None recorded. Referral None recorded. Procedures None recorded. Surgeries None recorded. Imaging MRI, brain + internal auditory canal, w/wo contrast - MRI, BRAIN + INTERNAL AUDITORY CANAL, W/WO CONTRAST 2023 024 [facility] [address], [place], [address], 4 12:49:53 Medication Orders None recorded. Patient [...] contr ast No observ ation record ed. [facility] [address] [place], [address], 04/27/2024 12:51:48 08/08/20 audio gram No observ ation record ed. BARCODE Not Available 2023 10:00:30 Result Notes None recorded. Problems Name Problem SNOMED Code Status Onset Date Resolution Date Notes Provider Name and Address Organization Details Recorded Time [place] ce of salivary secretion 20021658 Active 2021 Xerostomi a; Note: Date Diagnosed : 2 11:08 AM (K11.7) Not Available Formerly [facility], [facility] 4 02:49:28 Paresthes ia 87848100 Active 2021 Paresthes ia of skin; Note: Date Diagnosed : 2 11:08 AM (R20.2) Not Available Formerly [facility], [facility] 4 02:49:29 Sensorine ural hearing loss of bilateral ears 857380951 Active 2023 ADRIANA CHURCHILL MD [address] [address], [place], [address] , [facility] - [facility] 4 09:20:36 Bilateral tinnitus 30161408744 02 Active 2023 ADRIANA CHURCHILL MD [address] [address], [facility] [place], [address] , [facility] - [facility] 09:21:05 Problem Notes None recorded. Medical Equipment None Reported. Medications Name Sig Start Date Stop Date Status Note LastModified by Organization Details LastModified Time losartan 50 mg tablet active Medicatio n ID: [id number] Br and Name: losartan Send Method: E-Prescri bed Subs Allowed: subs OK Medica tionGener icName: losartan Not Available Not Available Not Available cyclobenza shawn 10 mg tablet TAKE 1 TABLET NEEDED BY ORAL ROUTE FOR 14 DAYS. active Not Available Not Available No t Available benzonatat e 200 mg capsule active Medicatio n ID: [id number] Br and Name: benzonata te Send Method: E-Prescri bed Subs Allowed: subs OK Medica tionGener icName: benzonata te Not Available Not Available Not Available ondansetro n HCl 4 mg tablet active Medicatio n ID: [id number] Br and Name: ondansetr on HCl Send [...] a dose pack active Medicatio n ID: [id number] Br and Name: prednison e Send Method: E-Prescri bed Subs Allowed: subs OK Medica tionGener icName: prednison e Not Available Not Available Not Available levothyrox ine 100 mcg tablet TAKE 1 TABLET BY MOUTH EVERY DAY active Not Available Not Available No t Available levothyrox ine 88 mcg tablet active Medicatio n ID: [id number] Br and Name: levothyro xine Send Method: E-Prescri bed Subs Allowed: subs OK Medica tionGener icName: levothyro xine Not Available Not Available Not Available gentamicin 0.3 % eye drops INSTILL 1 DROP INTO AFFECTED EYE(S) EVERY 4 HOURS FOR 7 DAYS active Not Available Not Available No t Available meclizine 25 mg tablet active Medicatio n ID: [id number] Br and Name: meclizine Send Method: E-Prescri bed Subs Allowed: subs OK Medica tionGener icName: meclizine Not Available Not Available Not Available tacrolimus 0.1 % topical ointment active Medicatio n ID: [id number] Br and Name: tacrolimu s Send Method: [...] 200 mg tablet active Medicatio n ID: [id number] Br and Name: hydroxych loroquine Send Method: E-Prescri bed Subs Allowed: subs OK Medica tionGener icName: hydroxych loroquine Not Available Not Available Not Available albuterol sulfate HFA 90 mcg/actuat ion aerosol inhaler active Medicatio n ID: [id number] Br and Name: albuterol sulfate S end Method: E-Prescri bed Subs Allowed: subs OK Medica tionGener icName: albuterol sulfate Not Available Not Available Not Available hydroxyzin e HCl 10 mg tablet PLEASE SEE ATTACHED FOR DETAILED DIRECTION S active Not Available Not Available No t Available bromphenir amine-pseu doephedrin e-DM 2 mg-30 mg-10 mg/5 mL oral syrup active Medicatio n ID: [id number] Br and Name: brompheni ramine-ps eudoeph-D M [...] 125 mg tablet active Medicatio n ID: [id number] Br and Name: amoxicill in-pot clavulana te [...] % dental paste active Medicatio n ID: [id number] Br and Name: Sodium Fluoride 5000 Dry [...] Updated DateTime 04/01/2024 162.56 cm 42.1 kg/m2 640281.13 g Flaquito Mccain [place] - [facility] 04/01/2024 08:59:24 Social History None recorded. [...] Diagnosis SNOMED-CT Code Diagnosis ICD10 Code Diagnosis IMO Codes Diagnosis Note [id number] ADRIANA CHURCHILL MD [facility] [address] [place] [address] 04/01/2024 08:48:05 04/01/2024 09:24:46 Sensorineural hearing loss of bilateral ears 265192815 H90.3 We reviewed the risks and benefits of obtaining an MRI scan. We discussed the potential rare complicati ons of gadolinium injection including but not limited to allergic reaction and kidney damage. We also discussed the possibilit y of incidental findings when brain imaging is performed Patient/Sebastian cain was instructed to contact the office to review results. They understand that unless they hear from the office specifical ly, not to assume the results are normal. Bilateral tinnitus 81776 70499 102 H93.13 [id number] ELSA GAYTAN [place], CCC-A [facility] [facility] [place] 100 [facility], ite [address] [place] [address] 06/07/2024 10:50:23 06/07/2024 14:01:00 Bilateral tinnitus 6616023983 102 H93.13 Sensorineu ral hearing loss of bilateral ears 234339047 H90.3 Health Concerns Section Related Observation LastModified by Organization Detai ls LastModified Time None Recorded Concern Status LastModified by Organization Details LastModified Time None Recorded Advance Directives Directive None Recorded Payers Insurance Date Sequence Insurance Name Policy Number Policy Cr Covered Member ID Cr Member ID Guarantor Name 06/04/2024 2 [facility] [employer] F (MEDICARE SUPPLEMENT) [id number] Yovana A Mayfield [id number] Yovana Galeana Mayfield 05/21/2024 1 [place] [employer] Yovana A Mayfield [id number] Yovana A Tran Notes Date Note Type Note Provider Name and Address Organization Details Recorded Time 04/01/2024 text/html Patient with bilateral tinnitus underwent electric showing mild asymmetry of hearing left compared to right at 2000 Hz ADRIANA ISSA MD 100 [facility] [address], [place], [address], [place] - [facility] 04/01/2024 09:22:33 OBGyn Episode No OBEpisode recorded.
--- OUTSIDE RECORDS SUMMARY | 2025-07-27 19:57 | XMS_ITS | Encounter Summary ---
Author Organization [facility] Address [address] [place] [address] Care Team Providers Care Manager Publishing Name Role Phone Berenice De La Cruz MD Primary Care Pr ovider Encounter Details Date Type Department Care Team (Late st Contact Info) Description 06/29/2025 Results Follow-Up Adult Medicine [address] [phone] Berenice De La Cruz MD [address] [place] [address] Social History Tobacco Use Types Packs/Day Years [...] for your loved ones. For example, child protection specialist or elderly care for an older [...] PM EDT Office Visit Bariatric Surgery - [address] [phone] Sage Dwyer MD [address] [place] [address] 02/06/2026 9:30 AM EDT Office Visit Pulmonology - [place] [address] [place] [phone] Pat Ramírez MD [address] [place] [phone] documented as of this encounter Visit Diagnoses Not on filedocumented in this encounter Additional Health Concerns Assessment Noted Time PHQ-9 Depression Total Score: 0 06/29/20 25 1:57 PM EST A fall risk assessment has been complete d for the patient 07/28/2024 9:20 AM EST documented as of this encounter Care Teams Manager Publishing Relationship Specialty Start Date End Date Berenice De La Cruz MD [address] [place] [phone] PCP - General Internal Medicine 07/27/23 documented as of this encounter
--- OUTSIDE RECORDS SUMMARY | 2025-07-27 19:57 | XMS_ITS | Clinical Summary ---
Author Organization [facility] Address [address] [address] Phone Care Team Providers Care Coke Handling Supervisor Name Role Phone Berenice De La Cruz MD Primary Care Pr ovider Social History Tobacco Use Types Packs/Day Years [...] VACCINE (#1) 2025 COVID-19 VACCINE ( - 2024-2 6 season) 2025 LIPID PANEL 07/28/2029 07/28/2024 HEPATITIS [...] file Insurance MEDICARE PART A & B [facility] MEDICARE SUPPLEMENT MEDICARE PART A & B Member Subscriber Plan / Payer (Ef fective 2012-Present) Name:Cecelia Mayfieldy Member ID:[id number] Relation to Subscriber:Self Name:Cecelia Mayfieldy Subscriber ID:[id number] Payer ID:[id number] Group ID:Not on file Type:Medicare Address: [employer] [address] [facility] [place] [address] MEDICARE PART A & B [facility] [place] [id number] MEDICARE PART A & [place] [address] MEDICARE PART A & B [facility] [place] [address] MEDICARE PART A & B [facility] MEDICARE SUPPLEMENT Care Teams Coke Handling Supervisor Relationship Specialty Start Date End Date Berenice De La Cruz MD [address] [place] [phone] PCP - General Family Medicine 02/22/25 Additional Source Comments The information contained in this document represents components of the legal health record. It is not the complete legal health record.[facility]
--- OUTSIDE RECORDS SUMMARY | 2025-07-27 19:57 | XMS_ITS | Patient Health Record ---
Author Organization [facility] Address [address] [place] [address] Care Team Providers Care Clinical Data Specialist Name Role Phone Ellie John Primary Care Provider Jose A Cross Unavailable [phone] Allergies Allergen (clinical drug ingredient) Drug/Non Drug [...] Once a day; Duration: 30 day(s) Active [place] 3 1000 MG 1 capsule Orally Once [...] Problem Acquired hammer toe of right foot (2643243703607 105) Other hammer toe(s) (acquired), right foot (M20.41) Active confirmed Problem Acquired hammer toe of left foot (5009255815682 103) Other hammer toe(s) (acquired), left foot [...] Medicare [employer] [address] [facility] [place] [address] [id number] Yovana Mayfield Self - patient is the insured [facility] [address] [place] [address] [id number] Yovana Mayfield Self - patient is [...]
--- OUTSIDE RECORDS SUMMARY | 2025-07-27 19:57 | XMS_ITS | Clinical Summary ---
Author Organization [address] [place] [address] [place] [phone] Phone Care Team Providers [employer] Name Role Phone Berenice De La Cruz MD Primary Care Pr ovider Allergies Active Allergy Reactions Criticality Noted Date Comments Cefdinir Headache,Nausea And Vomiting 013 Joint aches Codeine Nausea And Vomiting Medium 10/03/2005 Other Runny nose 08/28/2011 Seasonal Medications cetirizine (ZyrTEC) 10 mg tablet Active hydroxychloroquine (PLAQUENIL) 200 mg tablet Take 1 Tablet by mouth daily. 08/26/19 24 Active aspirin 81 mg EC tablet Take 1 Tablet by mouth daily. Active ebcmgl-gdssgzit-tw ylase (Creon) 36,000-114,000- 180,000 unit capsule,delayed release(DR/EC) TAKE 2 CAPS BY MOUTH THREE TIMES A DAY WITH MEALS AND 1 CAP ONE TO TWO TIMES A DAY WITH SNACKS Active semaglutide (Wegovy) 0.25 mg/0.5 mL injection penIndications:Mor bid obesity with BMI of 40.0-44.9, adult (CMS/HCC V24, CMS/HCC V28) Inject 0.25 mg under the skin every 7 (seven) days. 6 mL 08/20/19 25 Active magnesium oxide (MAG-OX) 400 mg (241.3 elemental magnesium) tablet Take 2 tablets (800 mg total) by mouth daily. 11/18/19 25 Active albuterol HFA (PROAIR HFA ; PROVENTIL HFA ; VENTOLIN HFA) 90 mcg/actuation inhalerIndications :Dyspnea on exertion,Wheezing Inhale 2 puffs by mouth every 6 (six) hours if needed for wheezing or shortness of breath. 6.7 g 1 02/02/20 25 025 Active meclizine (ANTIVERT) 25 mg tablet Active furosemide (LASIX) 20 mg tablet TAKE 1 TABLET BY MOUTH EVERY DAY 90 tablet 1 03/17/20 25 Active gabapentin (NEURONTIN) 300 mg capsule Take 1 capsule (300 mg total) by mouth 2 (two) times a day. 180 capsule 1 03/30/20 25 Active losartan (Cozaar) 25 mg tablet Take 1 tablet (25 mg total) by mouth 1 (one) time each day. 90 tablet 1 03/30/20 25 Active ipratropium-albute roL (Combivent Respimat) 20-100 mcg/actuation inhalerIndications :Chronic obstructive pulmonary disease, unspecified COPD type (CMS/HCC V24, CMS/HCC V28) Inhale 1 puff by mouth 4 (four) times a day. 1 each 04/07/20 026 Active escitalopram (LEXAPRO) 10 mg tabletIndications: Anxiety Take 1 tablet (10 mg total) by mouth 1 (one) time each day. 90 each 06/29/20 25 026 Active levothyroxine (SYNTHROID, LEVOTHROID) 100 mcg tabletIndications: Acquired hypothyroidism Take 1 tablet (100 mcg total) by mouth 1 (one) time each day before breakfast. 90 each 06/29/20 25 026 Active escitalopram (LEXAPRO) 10 mg tabletIndications: Anxiety Take 1 tablet (10 mg total) by mouth 1 (one) time each day. 90 each 01/19/20 25 025 Discontin ued(Reord er) levothyroxine (SYNTHROID, LEVOTHROID) 100 mcg tabletIndications: Acquired hypothyroidism Take 1 tablet (100 mcg total) by mouth 1 (one) time each day before breakfast. 90 each 01/19/20 025 Discontin ued(Reord er) potassium chloride 20 mEq tablet extended release TAKE 1 TABLET BY MOUTH 1 TIME EACH DAY. 90 tablet 1 03/20/20 025 Discontin ued(Thera py completed ) predniSONE (DELTASONE) 10 mg tablet Take 1 tablet (10 mg total) by mouth 1 (one) time each day. 03/28/20 025 Discontin ued(Thera py completed ) hydrOXYzine HCL (ATARAX) 10 mg tabletIndications: Trouble in sleeping Take 1-2 tablets (10-20 mg total) by mouth at bedtime as needed for anxiety (sleep). 28 tablet 03/30/20 025 Discontin ued(Dupli lu order) amLODIPine (NORVASC) 5 mg tablet Take 1 tablet (5 mg total) by mouth 1 (one) time each day. 90 each 1 05/22/20 025 Discontin ued(Thera py completed ) Active Problems Problem Noted Date Diagnosed Date Impaired gait and mobility 06/29/2025 Assessment & Plan (06/29/2025 3:19 PM EST): She will drop off paper work for Handicap placard which I will complete Primary osteoarthritis of left shoulder 06/29/20 Assessment & Plan (06/29/2025 3:19 PM EST): She is referred for physical therapy and to physiatry for consideration of joint injection Orders: Ambulatory referral to Physical Therapy and Athletic Training; Future Ambulatory referral to Physical Medicine Rehab; Future Mild aortic stenosis 04/20/2025 Overview (04/20/2025): ECHO 04/12/25 (ordered by Dr Ramírez) Assessment & Plan (06/29/2025 3:19 PM EST): Follow-up with language pathologist- Dr. Sung at [facility] in August. Diastolic dysfunction 04/20/2025 Overview (04/20/2025): Grade 1 (mild) per 04/12/25 ECHO Assessment & Plan (06/29/2025 3:19 PM EST): Recent echocardiogram done in April continues to show impaired relaxation but strongly EF of 65 to 70%.. She has an upcoming appointment with her language pathologist Dr. Sung at [facility] in August. Atherosclerosis of aorta 04/14/2025 Overview (04/14/2025): 04/2025: noted on CT abdomen, declined statin (see result note) Class 2 obesity 04/07/2025 Assessment & Plan (06/29/2025 3:19 PM EST): She will continue compounded semaglutide weekly from outside agency. Has lost about 45 pounds so far and feels great Pulmonary HTN 03/31/2025 Closed nondisplaced fracture of second cervical [...] Noted on CT done in october at [facility] in [place] Assessment & Plan (02/01/2025 4:27 PM EDT): [...] Will monitor for symptoms CKD (chronic kidney disease), stage III 05/27/20 Assessment & Plan (06/29/2025 3:19 PM EST): Stable. Will obtain CMP Orders: Comprehensive metabolic panel; Future Cardiac murmur 05/27/2024 Amaurosis fugax of right eye 05/27/2024 Assessment & Plan (06/29/2025 3:19 PM EST): See HPI. Plan is for MRI brain/MRA head which is scheduled for August at [facility]. Evaluated by Laisha Vincent MD MPH at [facility] on 06/20/25 Assessment & Plan (07/13/2024 10:47 AM EST): Continue atorvastatin 20mg Nightly and Aspirin 81mg daily She completed CTA head /neck which showed no significant narrowing of the arteries in the head/neck. She was scheduled for an echocardiogram which had to cancel because she was out of town. She states that her language pathologist- Dr. Sung obtains echos every year. She [...] A1c; Future Sjogren's syndrome 02/14/2022 Overview (05/27/2024): [facility] Assessment & Plan (06/29/2025 3:19 PM EST): Continue hydroxychloroquine. Follow-up with Dr. Martinez as scheduled Angioedema 09/19/2021 Overview (05/27/2024): Evaluated by hematology where they were able to rule out lymphoproliferative disease or lymphoma. Was advised to follow-up with hot kettle tender. 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 Will update labs Orders: Comprehensive metabolic panel; Future Uric acid; Future Assessment & Plan (07/13/2024 10:47 AM EST): stable Orders: allopurinoL (ZYLOPRIM) 100 mg tablet; Take 0.5 tablets (50 mg total) by mouth 1 (one) time each day. 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 Continue lexapro daily Orders: escitalopram (LEXAPRO) 10 mg tablet; Take 1 tablet (10 mg total) by mouth 1 (one) time each day. Assessment & Plan (07/13/2024 10:47 AM EST): Stable Orders: escitalopram (LEXAPRO) 10 mg tablet; Take 1 tablet (10 mg total) by mouth 1 (one) time each day. Vitamin D insufficiency 08/14/2017 Assessment & Plan (06/29/2025 3:19 PM EST): Continue vitamin D daily Assessment & Plan (07/13/2024 10:47 AM EST): [...] Restless legs syndrome 09/29/2008 Assessment & Plan (06/29/2025 3:19 PM EST): Continue gabapentin 300 mg nightly Assessment & Plan (07/13/2024 10:47 AM EST): stable Orders: gabapentin (NEURONTIN) 100 mg capsule; Take 1 capsule (100 mg total) by mouth at bedtime. at bedtime Hypothyroidism 04/23/2006 Assessment & Plan (06/29/2025 3:19 PM EST): Stable; continue levothyroxine daily Orders: levothyroxine (SYNTHROID, LEVOTHROID) 100 mcg tablet; Take 1 tablet (100 mcg total) by mouth 1 (one) time each day before breakfast. Thyroid stimulating hormone with reflex to free t4 and free t3; Future Assessment & Plan (07/13/2024 10:47 AM EST): [...] Essential hypertension, benign 10/03/2005 Assessment & Plan (06/29/2025 3:19 PM EST): Well-controlled. Continue amlodipine 5 mg daily Assessment & Plan (02/01/2025 4:27 PM EDT): [...] 1 (one) time each day. at bedtime. Resolved Problems Problem Noted Date Diagnosed Date Resolved Date Pure hypercholesterolemia 05/21/2007 Assessment & Plan (07/13/2024 10:47 AM EST): Continue atorvastatin 20mg Nightly and Aspirin 81mg daily Orders: Lipid panel with reflex to direct LDL; Future Comprehensive metabolic panel; Future Encounters Date Type Department Care Team Description 07/25/2025 11:45 AM EST Office Visit Pulmonology - [address] [place] [phone] Pat Ramírez MD Abnormal chest CT (Primary Dx); Chronic obstructive pulmonary disease, unspecified COPD type ([facility]/HCC V24, [facility]/HCC V28); Bronchiectasis without acute exacerbation ([facility] V24, [facility] V28); SAUNDRA (obstructive sleep apnea); Ex-smoker 07/25/2025 10:30 AM EST Lab Draw Station - [address] [place] [address] [address] [facility] [address] [place] [phone] Arrived 07/25/2025 10:00 AM EST Office Visit Bariatric Surgery - [address] [place] [phone] Sage Dwyer MD Class 2 severe obesity due to excess calories with serious comorbidity and body mass index (BMI) of 39.0 to 39.9 in adult (Primary Dx); Obstructive sleep apnea; Hyperglycemia 07/24/2025 Results Follow-Up Pulmonology - [address] [place] [phone] Pat Ramírez MD 07/18/2025 10:12 AM EST - 07/18/2025 11:59 PM EST Hospital Encounter [facility] CT Scan [address] [place] [phone] of the chest Discharge Disposition: Home or Self Care 06/29/2025 3:10 PM EST Lab Draw Station [address] Acquired hypothyroidism; Gout, unspecified cause, unspecified chronicity, unspecified site; Stage 3a chronic kidney disease ([facility] V24, [facility] V28) 06/29/2025 2:00 PM EST Office Visit Adult Medicine [address] [phone] OgBerenice dutton MD Anxiety (Primary Dx); Acquired hypothyroidism; Amaurosis fugax of right eye; Stage 3a chronic kidney disease ([facility] V24, [facility] V28); Diastolic dysfunction; Mild aortic stenosis; Essential hypertension, benign; Gout, unspecified cause, unspecified chronicity, unspecified site; Class 2 obesity; Restless legs syndrome; Sjogren's syndrome, with unspecified organ involvement ([facility] V24); Vitamin D insufficiency; Primary osteoarthritis of left shoulder; Adhesive capsulitis of left shoulder; Impaired gait and mobility 06/29/2025 Results Follow-Up [address] [phone] Berenice De La Cruz MD 06/02/2025 Telephone Adult [address] [phone] Berenice De La Cruz MD from Last 3 Months Immunizations Immunization Administration Dates Next Due Influenza Quadravalent, 0.5m l (Fluad) 65yo and older 05/09/2020 Influenza Quadravalent, 0.5m l (Fluzone High-dose) 65yo and older 05/24/2024,05/15/2021 Influenza trivalent, 0.5mL ( Fluad) 65yo and older 05/24/2024,07/27/2023,06/23/2022,05/15,05/09/2020,04/15/2019,04/30/2016 ,05/10/2015,05/17/2013,05/20/2011,04/11,06/01/2006 Influenza trivalent, 0.5mL ( Fluzone High-dose) 65yo and older 04/11/2025,07/27/2023,06/23/2022,04/15,04/30/2016 Influenza trivalent, 0.5mL, preservative free (Fluarix; FluLaval; [...] WNL TOTAL KNEE ARTHROPLASTY 2001, 2013 PROCEDURE: VA ARTHRP KNE CONDYLE&PLATU MEDIAL&LAT COMPARTMENTS; COMMENT: right, left BLADDER SUSPENSION 2002 PROCEDURE: HISTORICAL BLADDER SUSPENSION LAPAROSCOPIC GASTRIC BANDING 2005 PROCEDURE: LAP ADJUSTABLE GASTRIC BAND CHOLECYSTECTOMY 10/19/09 PROCEDURE: VA CHOLECYSTECTOMY; COMMENT: [facility] HERNIA REPAIR 10/19/09 PROCEDURE: [...] (CMS/HCC V24, CMS/HCC V28) DX:CKD (chronic kidney dise ase), stage III ([facility]) Pure hypercholesterolemia 05/21/2007 Family History Medical History Relation Name Comments [...] 0 Q uit: 08/10/1985 Smokeless Tobacco: Never Tobacco [...] Record ed Within the last 3 months, loree grace many times did you visit the emergency [...] your loved ones. For example, child care attendant school or elderly care for an older adult? [...] F) 07/25/2025 10:56 AM EST Respiratory Rate 16 06/29/2025 1:54 PM EST Oxygen Saturation 96% 07/25/2025 10:56 AM EST Inhaled Oxygen Concentration - - Weight 103 kg (228 lb) 07/25/2025 10:56 AM EST Height 162.6 cm (5' 4 ) 07/25/2025 10:04 AM EST Body Mass Index 39.14 07/25/2025 10:04 AM EST Plan of Treatment Upcoming Encounters Date Type Department Care Team (Late st Contact Info) Description 12/05/2025 2:00 PM EDT Office Visit Bariatric Surgery - [place] [address] [facility] [address] [place] [address] Sage Dwyer MD [address] [place] [phone] 02/06/2026 9:30 AM EDT Office Visit Pulmonology - [place] [address] [facility] [address] [address] [place] [address] Pat Ramírez MD [address] [place] [phone] Health Maintenance Due Date Last Done Comments Zoster Vaccines (1 of 2) 1964 Social Influencers of Health Screening 07/27/2025 07/27/2024 Medicare Annual Wellness Visit 07/28/2025 07/28/2024 Falls Risk Assessment 01/18/2026 01/18/2025 , 07/28/2024, 07/28/2024, Additional history exists Hypertension/CHF/CAD Annual BMP Blood Test 06/29/2026 06/29/2025, 04/06/2025, 01/18/2025, Additional history exists Cholesterol Screening (Lipid Panel) 07/28/2029 07/28/2024, 04/15/2024, 04/15/2024 DTaP,Tdap,and Td Vaccines (5 - Td or Tdap) 06/23/2032 06/23/2022, 03/21/2009, 12/27/2001, Additional history exists Osteoporosis Screening (Bone Density Screening) 08/24/2033 08/24/2023, 07/07/2017 Hepatitis C Screening Completed 04/20/2015 Pneumococcal Vaccine: 50+ Years Completed 07/18/2016, 01/23/2015 COVID-19 Vaccine Discontinued 07/15/2021, , 10/08/2020 Influenza Vaccine Completed 04/11/2025, , 05/24/2024, Additional history exists Depression Screening Completed 06/29/2025, 08/06/20 23 HIB Vaccines Aged Out No [...] Diagnosis Comments CT CHEST WO CONTRAST Routine 07/18/2025 10:[address] of the chest COMPREHENSIVE METABOLIC PANEL Routine 06/29/2025 3:13 PM EST Stage 3a chronic kidney disease (CMS/HCC V24, CMS/HCC V28) Gout, unspecified cause, unspecified chronicity, unspecified site URIC ACID Routine 06/29/2025 3:13 PM EST Gout, unspecified cause, unspecified chronicity, unspecified site THYROID STIMULATING HORMONE WITH REFLEX TO FREE T4 AND FREE T3 Routine 06/29/2025 3:13 PM EST Acquired hypothyroidism LIPID PANEL WITH REFLEX TO DIRECT LDL Routine 07/28/2024 10:10 AM EST Pure hypercholesterolemia FALLS RISK ASSESSMENT Routine 01/14/2024 DXA BONE DENSITY STUDY 1+ SITS AXIAL SKEL Routine 08/24/2023 2:49 PM EST Asymptomatic menopausal state DEPRESSION SCREENING Routine 08/06/2023 HEPATITIS C SCREENING Routine 04/20/2015 from Last 3 Months or Most Recently Relevant to Health Maintenance Results * CT Chest wo Contrast (07/18/2025 10:33 AM EST) Anatomical Region Laterality Modality Body Computed Tomogra phy 07/24/2025 12:4 4 PM EST Impressions 07/24/2025 1:05 PM EST Stable exam compared to 04/11/2025. No suspicious pulmonary nodules. Mild basilar predominant bronchiectasis with scattered regions of linear and groundglass scarring adjacent to thoracic vertebral osteophytes and chronic right rib fracture deformities. -------- FINAL REPORT -------- Dictated By: RAUL STEVENS Dictated Date: 07/24/2025 12:44 ET Assigned Physician: RAUL STEVENS Reviewed and Electronically Signed By: RAUL STEVENS Signed Date: 07/24/2025 13:05 ET Workstation ID: [id number] Transcribed By: Self Edit Transcribed Date: 07/24/2025 12:44 ET Narrative 07/24/2025 1:05 PM EST PROCEDURE: Chest CT INDICATION: Lung nodule, interstitial lung disease TECHNIQUE: Chest CT without contrast. Multi planar reformats were created and interpreted. The examination was performed utilizing dose reduction techniques. Total DLP 1117 COMPARISON: 04/11/2025 FINDINGS: LUNGS/PLEURA: Central airways are patent. Mild basilar predominant bronchiectasis with scattered regions of linear scarring throughout the right greater than left lungs, similar compared to the prior exam. Ill-defined groundglass opacities in the right lower lobe are present adjacent to large anterolateral projecting osteophytes and chronic rib fracture deformities, likely related to chronic scarring. No suspicious pulmonary nodule. No pleural effusion or pneumothorax. No honeycombing. MEDIASTINUM: Thyroid gland is small. No mediastinal or hilar lymphadenopathy. Small hiatal hernia. Left atrial and biventricular dilation. No pericardial effusion. No significant coronary artery calcifications. CHEST WALL: No axillary lymphadenopathy or superficial soft tissue mass. UPPER ABDOMEN:Bilateral adrenal adenomas. BONES: Left shoulder arthroplasty. Degenerative changes seen throughout the bones. Multiple old right rib fracture deformities are unchanged. No acute fracture. Procedure Note Raul Stevens MD - 07/24/2025 PROCEDURE: Chest CT INDICATION: Lung nodule, interstitial lung disease TECHNIQUE: Chest CT without contrast. Multi planar reformats were createdand interpreted. The examination was performed utilizing dose reductiontechniques. Total DLP 1117 COMPARISON: 04/11/2025 FINDINGS: LUNGS/PLEURA: Central airways are patent. Mild basilar predominantbronchiectasis with scattered regions of linear scarring throughout theright greater than left lungs, similar compared to the prior exam.Ill-defined groundglass opacities in the right lower lobe are presentadjacent to large anterolateral projecting osteophytes and chronic ribfracture deformities, likely related to chronic scarring. No suspiciouspulmonary nodule. No pleural effusion or pneumothorax. Nohoneycombing. MEDIASTINUM: Thyroid gland is small. No mediastinal or hilarlymphadenopathy. Small hiatal hernia. Left atrial and biventriculardilation. No pericardial effusion. No significant coronary arterycalcifications. CHEST WALL: No axillary lymphadenopathy or superficial soft tissue mass. UPPER ABDOMEN:Bilateral adrenal adenomas. BONES: Left shoulder arthroplasty. Degenerative changes seen throughoutthe bones. Multiple old right rib fracture deformities are unchanged. Noacute fracture. IMPRESSION: Stable exam compared to 04/11/2025. No suspicious pulmonary nodules. Mild basilar predominant bronchiectasis with scattered regions of linearand groundglass scarring adjacent to thoracic vertebral osteophytes andchronic right rib fracture deformities. -------- FINAL REPORT -------- Dictated By: RAUL STEVENS Dictated Date: 07/24/2025 12:44 ET Assigned Physician: RAUL STEVENS Reviewed and Electronically Signed By: RAUL STEVENS Signed Date: 07/24/2025 13:05 ET Workstation ID: [id number] Transcribed By: Self Edit Transcribed Date: 07/24/2025 12:44 ET Pat Ramírez MD [facility] CT PROCEDURES Final Result * Thyroid stimulating hormone with reflex to free t4 and free t3 (06/29/2025 3:13 PM EST) TSH 1.72 0.40 - 4.00 mcIU/mL 06/29/2025 5:16 PM EST [facility] Blood Venous blood specimen / Unknown Venipuncture / Unknown 06/29/2025 3:13 PM EST 06/29/2025 3:13 PM EST Berenice De La Cruz MD LAB BLOOD ORDERA BLES Final Result Performing Organization Address [facility]/ZIP Co de Phone Number [facility] [address] [place] [address], [place] [phone] * Uric acid (06/29/2025 3:13 PM EST) Uric Acid 7.0 3.1 - 7.8 mg/dL 06/29/2025 5:15 PM [facility] Blood Venous blood specimen / Unknown Venipuncture / Unknown 06/29/2025 3:13 PM EST 06/29/2025 3:13 PM EST Berenice De La Cruz MD LAB BLOOD ORDERA BLES Final Result Performing Organization Address [facility]/ZIP Co de Phone Number [facility] [address] [place] [address], [place] [phone] * (ABNORMAL) Comprehensive metabolic panel (06/29/2025 3:13 PM EST) Pathologist [facility] Sodium 143 133 - 145 mmol/L 06/29/2025 5:15 PM [facility] Potassium 4.6 3.5 - 5.5 mmol/L 06/29/2025 5:15 PM [facility] Chloride 104 96 - 110 mmol/L 06/29/2025 5:15 PM [facility] CO2 29 21 - 32 mmol/L 06/29/2025 5:15 PM [facility] Anion Gap 10 3 - 11 06/29/2025 5:15 PM [facility] Glucose 109(H) 70 - 100 mg/dL 06/29/2025 5:15 PM [facility] BUN 22 5 - 25 mg/dL 06/29/2025 5:15 PM [facility] Creatinine 1.10 0.50 - 1.10 mg/dL 06/29/2025 5:15 PM [facility] eGFR 52(L) >=60 mL/min/1. 73m2 06/29/2025 5:15 PM [facility] Comment:Calculation based on the Chronic Kidney Disease Epidemiology Collaboration (CKD-EPI) equation refit without adjustment for race. BUN/Creatinine Ratio 20.0 06/29/2025 5:15 PM [facility] Calcium 8.7 8.5 - 10.5 mg/dL 06/29/2025 5:15 PM [facility] AST (SGOT) 15 10 - 42 unit/L 06/29/2025 5:15 PM [facility] ALT (SGPT) 13 10 - 60 unit/L 06/29/2025 5:15 PM [facility] Alkaline Phosphatase 101 42 - 121 unit/L 06/29/2025 5:15 PM [facility] Total Protein 6.7 6.0 - 8.0 g/dL 06/29/2025 5:15 PM [facility] Albumin 4.1 3.2 - 5.0 g/dL 06/29/2025 5:15 PM [facility] Total Bilirubin 0.5 0.0 - 1.4 mg/dL 06/29/2025 5:15 PM [facility] Blood Venous blood specimen / Unknown Venipuncture / Unknown 06/29/2025 3:13 PM EST 06/29/2025 3:13 PM EST us Berenice De La Cruz MD LAB BLOOD ORDERA BLES Final Result [facility] [address] [place] [address], [place] [phone] * Lipid panel with reflex to direct LDL (07/28/2024 10:10 AM EST) Cholesterol 185 0 - 200 mg/dL LAB CHEMISTRY METHOD 07/28/2024 12:43 PM EST [facility] Triglycerides 114 0 - 150 mg/dL LAB CHEMISTRY METHOD 07/28/2024 12:43 PM EST [facility] HDL 76 >=40 mg/dL LAB CHEMISTRY METHOD 07/28/2024 12:43 PM EST [facility] LDL Calculated 86 0 - 100 mg/dL LAB CHEMISTRY METHOD 07/28/2024 12:43 PM EST [facility] VLDL Cholesterol Roberta 22.8 mg/dL LAB CHEMISTRY METHOD 07/28/2024 12:43 PM EST [facility] Non HDL Chol. (LDL+VLDL) 109 <145 mg/dL LAB CHEMISTRY METHOD 07/28/2024 12:43 PM EST [facility] Chol/HDL Ratio 2.4 0.0 - 4.4 LAB CHEMISTRY METHOD 07/28/2024 12:43 PM [facility] Blood Venous blood specimen / Unknown Venipuncture / Unknown 07/28/2024 10:10 AM EST 07/28/2024 10:10 AM EST Berenice De La Cruz MD LAB BLOOD ORDERA BLES Final Result [facility] [address] [place] [address], [place] [phone] * Hm Falls Risk Assessment (01/14/2024) Falls Risk Assessment Abstracted Historical Provider HEALTH MAINTENANCE Final Result * [...] classified as having normal bone density. [facility] Department of Internal Medicine recommends using National [...] beclassified as having normal bone density. [facility] Department of Internal Medicine recommendsusing National Osteoporosis [...] over-estimation of fracture risk by FRAX. Faye COOK IMG DXA PROCEDURES Final Resu lt * Depression Screening (08/06/2023) [facility] Depression Screening Abstracted Historical Provider HEALTH MAINTENANCE Final Result * Hepatitis C Screening (04/20/2015) [facility] Hepatitis C Screening Abstracted Historical Provider HEALTH MAINTENANCE Final Result from Last 3 Months or Most Recently Relevant to Health Maintenance Insurance [facility]IC[facility] Care Teams [employer] Relationship Specialty Start Date End Date Berenice De La Cruz MD [address] [place] [phone] PCP - General Internal Medicine 07/27/23
--- OUTSIDE RECORDS SUMMARY | 2025-07-27 19:57 | XMS_ITS | Encounter Summary ---
Author Organization [facility] Address [address] [place] [address] Care Team Providers Care Informatics Consultant Name Role Phone Berenice De La Cruz MD Primary Care Pr ovider Encounter Details Date Type Department Care Team ([facility] st Contact Info) Description 07/24/2025 Results Follow-Up Pulmonology - [place] [address] [place] [phone] Pat Ramírez MD [address] [place] [phone] Social History Tobacco Use Types Packs/Day Years [...] do you feel lonely or isolated from ose around you? Never 07/27/2024 Food Risk [...] care for your loved ones. For example, rn child or elderly care for an older [...] as of this encounter Progress Notes * Pat Ramírez MD - 07/24/2025 3:55 PM EST Inform patient (letter/phone call) that his Chest CT showed stable lung nodule. I will discuss with patient further during follow up visit, tomorrow . documented in this encounter Plan of Treatment Upcoming Encounters Date Type Department Care Team (Late st Contact Info) Description 12/05/2025 2:00 PM EDT Office Visit Bariatric Surgery - [place] [address] [facility] [address] [place] [phone] Sage Dwyer MD [address] [place] [phone] 02/06/2026 9:30 AM EDT Office Visit Pulmonology - [place] [address] [facility] [address] [place] [phone] Pat Ramírez MD [address] [place] [phone] documented as of this encounter Visit Diagnoses Not on filedocumented in this encounter Additional Health Concerns Assessment Noted Time PHQ-9 Depression Total Score: 0 06/29/20 25 1:57 PM EST A fall risk assessment has been complete d for the patient 07/28/2024 9:20 AM EST documented as of this encounter Care Teams Informatics Consultant Relationship Specialty Start Date End Date Berenice De La Cruz MD [address] [place] [phone] PCP - General Internal Medicine 07/27/23 documented as of this encounter
--- OUTSIDE RECORDS SUMMARY | 2025-07-27 19:57 | XMS_ITS | Clinical Summary ---
Author Organization [facility] Prior to 01/07/[address] [place] [address] Care Team Providers Care General Manager Food Name Role Phone Ellie John MD Primary Care Provider [phone] Allergies Active Allergy Reactions Criticality Noted Date [...] mouth. 0 Active ergocalciferol (VITAMIN D2) capsule 31122 units Take 50,000 Units by mouth once [...] age to complete this topic Care Teams General Manager Food Relationship Specialty Start Date End Date Ellie John MD PCP - General Internal Medicine 09/16/21
== END 2025-07-27 18:21 | disposition home or self-care (01) ==
LOC: HO.MRI 18:20
PROVIDERS: Visit Provider Physical Medicine & Rehabilitation
DX: M54.14 Radiculopathy, thoracic region (principal); M54.6 Pain in thoracic spine
CPT/HCPCS: 72146

== ENCOUNTER → 2025-07-27 18:35 | Outpatient (BNV) | payer MEDICARE, OTHER, SELFPAY | PROVIDERS: Visit Provider Radiology Diagnostic Radiology | DX: M41.84 Other forms of scoliosis, thoracic region (principal); M47.812 Spondylosis without myelopathy or radiculopathy, cervical region; M47.816 Spondylosis without myelopathy or radiculopathy, lumbar region | CPT/HCPCS: 72146 ==